=== PATIENT | female | born 1965 | race Caucasian/White ===

== ENCOUNTER → 2018-06-17 10:30 | Outpatient (CLI) | payer OTHER, SELFPAY ==
[2018-06-17 10:30] LABS: Erythrocyte Sedimentation Rate 3 mm/hr (0-30)
[2018-06-17 10:32] LABS: Absolute Lymphocyte Count 1.01 X10^3/ul (0.83-4.51); Absolute Neutrophil Count 2.6 X10^3/uL (2.0-7.7); Basophil# 0.05 X10^3/uL; Basophil% 1.2 % (0-1); Eosinophil# 0.27 X10^3/uL; Eosinophils% 6.5 % (0-5); Hematocrit 37.7 % (37-47); Hemoglobin 13.1 g/dl (12.0-15.0); International Normalized Ratio 1.1; Lymphocyte # 1.01 X10^3/ul (4.0); Lymphocyte % 24.2 % (19-41); Mean Corp Hgb Conc 34.7 g/gl (32-36); Mean Corpuscular Hgb 31.5 pg (27.0-32.0); Mean Corpuscular Volume 90.6 fL (81-99); Mean Platelet Vol. 11.6 fl (6.2-12.0); Monocyte# 0.24 X10^3/uL; Monocyte% 5.7 % (0-10); Neutrophil # 2.61 X10^3/uL (2.7-7.7); Neutrophil % 62.4 % (47-70); Platelet Count 200 K/mm3 (150-450); Prothrombin Time (Protime)PT. 13.8 SECONDS (11.7-14.9); RBC Distribution Width CV 12.9 % (11.6-14.6); RBC Distribution Width SD 42.3 fl (35.1-43.9); Red Blood Count 4.16 M/mm3 (4.2-5.4); White Blood Count 4.2 K/mm3 (4.4-11.0)
[2018-06-17 10:33] LABS: POSITIVE COUNT NO; POSITIVE DIFFERENTIAL NO; POSITIVE MORPHOLOGY NO
[2018-06-17 10:43] LABS: AST(SGOT) 22 U/L (15-37); Alanine Aminotransfer ALT/SGPT 34 U/L (13-56); Albumin, Serum 3.8 g/dL (3.2-5.0); Alkaline Phosphatase 62 U/L (45-117); Bilirubin, Direct 0.25 mg/dL (0.00-0.30); Globulin 3.6 g/dL (2.2-4.2); Protein, Total 7.4 g/dL (6.4-8.2)
== END ==
PROVIDERS: Family Provider Family Medicine; PCP Family Medicine; Referring Provider Family Medicine; Visit Provider Family Medicine
DX: T14.8XXA Other injury of unspecified body region, initial encounter (principal)
CPT/HCPCS: 36415; 80076; 85025; 85610; 85652

== ENCOUNTER → 2018-07-31 11:25 | Outpatient (CLI) | payer OTHER, SELFPAY ==
--- NOTE | 2018-07-31 11:27 | RAD_ITS ---
STUDY: X-RAY - PARANASAL SINUSES REASON FOR EXAM: Female, 53 years old. Sinusitis. TECHNIQUE: 3 view(s) of the paranasal sinuses were obtained. COMPARISON: None. FINDINGS: There is mild mucosal thickening of the maxillary sinus. The remainder of the sinuses appear to be clear. No air-fluid levels are seen. Normal visualized facial bones. The soft tissue structures are unremarkable. RAD/Sinuses min 3 Views IMPRESSION: Mild sinus disease of the left maxillary sinus. Electronically Signed: Thomas Gomes MD at 11:39 EST Tel , Service support ,
== END ==
PROVIDERS: Family Provider Family Medicine; PCP Family Medicine; Referring Provider Family Medicine; Visit Provider Family Medicine
DX: J32.9 Chronic sinusitis, unspecified (principal)
CPT/HCPCS: 70220

== ENCOUNTER → 2018-09-03 07:38 | Outpatient (CLI) | payer OTHER, SELFPAY ==
--- NOTE | 2018-09-03 07:46 | CT_ITS ---
STUDY: CT MAXILLOFACIAL SINUSES REASON FOR EXAM: Female, 53 years old. History of sinusitis. RADIATION DOSAGE (If Supplied By Facility): CTDIvol = ( 33.06 ) mGy, DLP = ( 817.32 ) mGycm TECHNIQUE: The patient was scanned in a multi detector CT scanner. High resolution axial imaging was performed without the administration of intravenous contrast material. Sagittal and coronal images were reconstructed. Individualized dose optimization techniques were used for this CT. COMPARISON: None. FINDINGS: FRONTAL SINUSES: Normal aeration, without mucosal inflammatory disease. ETHMOIDAL SINUSES: Normal aeration, without mucosal inflammatory disease. MAXILLARY SINUSES: There is almost complete opacification of the left maxillary sinus. Partial opacification of the left ethmoid sinus. SPHENOIDAL SINUSES: Normal aeration, without mucosal inflammatory disease. There is patency of the bilateral maxillary infundibuli with normal uncinate processes, ethmoid bullae, and hiatus semilunaris. Hypertrophy of the left middle nasal turbinate. There is hypertrophy of the left inferior nasal turbinate. Normal midline nasal septum. There is patency of the bilateral nasal airways. The visualized osseous structures are normal. The visualized bilateral orbital contents are normal. CT/Sinus/Facial Bone IMPRESSION: Almost complete opacification of the left maxillary sinus. Partial opacification of the left ethmoid sinus. Hypertrophy of the left inferior and middle turbinates. Electronically Signed: Tu Venegas MD at 8:56 EST Tel [phone], Service support ,
--- OUTSIDE RECORDS SUMMARY | 2018-10-20 00:52 | XMS RPT_ITS ---
:1965 Author Organization [facility] Care Team Providers Name Role Phone Jose Billings Attending Unavailable Jose Billings Referring Unavailable Senaitiff, Alejandra Primary Care Unavailable Jolliff, Alejandra Attending Unavailable Jolliff, Alejandra Referring Unavailable Jolliff, Alejandra Primary Care Unavailable Jolliff, Alejandra Attending Unavailable Jolliff, Alejandra Referring Unavailable Jolliff, Alejandra Primary Care Unavailable PROBLEMS PROBLEMS DATE TYPE CONDITION / CODE ATTENDING STATUS SOURCE 07/31/2018 Unknown J32.9 - Chronic Alejandra Swan Active Amanda sinusitis, Community unspecified / Hospital J32.9(ICD-10) Repository PROCEDURES PROCEDURES No Procedure Records FoundRESULTS RESULTS SINUS/FACIAL BONE Observed: 09/03/2018 Status: F Source: AMANDA 7:46 AM [facility] REPOSITORY [facility] Imaging Services [address] [place] [address] Sinus/Facial Bone MR#: [id number] Acct: [id number] Name: AMINA POTTS Rep #: [id number] : 1965 F 53 From: Tu Venegas MD PCP: Alejandra Swan MD Status: REG CLI Study: Sinus/Facial Bone Date of Exam: 09/03/18 Exam# [id number] Ordering Dr: Jose Billings MD STUDY: CT MAXILLOFACIAL SINUSES REASON FOR EXAM: Female, 53 years old. History of sinusitis. RADIATION DOSAGE (If Supplied By Facility): CTDIvol = ( 33.06 ) mGy, DLP = ( 817.32 ) mGycm TECHNIQUE: The patient was scanned in a multi detector CT scanner. High resolution axial imaging was performed without the administration of intravenous contrast material. Sagittal and coronal images were reconstructed. Individualized dose optimization techniques were used for this CT. COMPARISON: None. FINDINGS: FRONTAL SINUSES: Normal aeration, without mucosal inflammatory disease. ETHMOIDAL SINUSES: Normal aeration, without mucosal inflammatory disease. MAXILLARY SINUSES: There is almost complete opacification of the left maxillary sinus. Partial opacification of the left ethmoid sinus. SPHENOIDAL SINUSES: Normal aeration, without mucosal inflammatory disease. There is patency of the bilateral maxillary infundibuli with normal uncinate processes, ethmoid bullae, and hiatus semilunaris. Hypertrophy of the left middle nasal turbinate. There is hypertrophy of the left inferior nasal turbinate. Normal midline nasal septum. There is patency of the bilateral nasal airways. The visualized osseous structures are normal. The visualized bilateral orbital contents are normal. CT/Sinus/Facial Bone IMPRESSION: Almost complete opacification of the left maxillary sinus. Partial opacification of the left ethmoid sinus. Hypertrophy of the left inferior and middle turbinates. Electronically Signed: Tu Venegas MD at 8:56 EST Tel [phone], Service support , CC: Alejandra Swan MD; Jose Billings MD Sieve Repairer: Signed SINUSES MIN 3 VIEWS Observed: 07/31/2018 Status: F Source: [place] 11:27 AM [facility] [place] [facility] Imaging Services [address] [facility] [place] [address] Sinuses min 3 Views MR#: [id number] Acct: [id number] Name: AMINA POTTS Rep #: [id number] : 1965 F 53 From: Thomas Gomes MD PCP: Alejandra Swan MD Status: REG CLI Study: Sinuses min 3 Views Date of Exam: 07/31/18 Exam# [id number] Ordering Dr: Alejandra Swan MD STUDY: X-RAY - PARANASAL SINUSES REASON FOR EXAM: Female, 53 years old. Sinusitis. TECHNIQUE: 3 view(s) of the paranasal sinuses were obtained. COMPARISON: None. FINDINGS: There is mild mucosal thickening of the maxillary sinus. The remainder of the sinuses appear to be clear. No air-fluid levels are seen. Normal visualized facial bones. The soft tissue structures are unremarkable. RAD/Sinuses min 3 Views IMPRESSION: Mild sinus disease of the left maxillary sinus. Electronically Signed: Thomas Gomes MD at 11:39 EST Tel , Service support , CC: Alejandra Swan MD Sieve Repairer: Signed ERYTHROCYTE SED RATE Collected: 06/17/2018 Status: F Source: [place] 8:19 AM [facility] [place] TYPE CODE TESTS RESULT OUT OF RANGE REFERENCE UNITS LAB L102.0000 0-30 mm/hr Normal SED RATE 3 Performed By: #### L101.9900, L100.0100 #### [facility] [address] [place], [address] CBC W/DIFF, AUTOMATED Collected: 06/17/2018 Status: F Source: [place] 8:19 AM [facility] [place] [place] TYPE CODE TESTS RESULT OUT OF RANGE REFERENCE UNITS LAB L100.1000 4.4-11.0 K/mm3 Low WBC 4.2 LAB L100.1200 4.2-5.4 M/mm3 Low RBC 4.16 LAB L100.1300 12.0-15.0 g/dl Normal HGB 13.1 LAB L100.1400 37-47 % Normal HCT 37.7 LAB L100.1500 81-99 fL Normal MCV 90.6 LAB L100.1600 27.0-32.0 pg Normal MCH 31.5 LAB L100.1700 32-36 g/gl Normal MCHC 34.7 LAB L100.1810 11.6-14.6 % Normal RDW CV 12.9 LAB L100.1820 35.1-43.9 fl Normal RDW SD 42.3 LAB L100.1900 150-450 K/mm3 Normal PLT 200 LAB L100.2000 6.2-12.0 fl Normal MPV 11.6 LAB L100.2100 47-70 % Normal NEUT% 62.4 LAB L100.2200 19-41 % Normal LY% 24.2 LAB L100.2300 0-10 % Normal MONO% 5.7 LAB L100.2400 0-5 % High EO% 6.5 LAB L100.2500 0-1 % High BASO% 1.2 LAB L100.2550 0.0-0.9 % Normal IM GRAN % 0.000 Result Comment: IG% - Immature Granulocytes (promyelocytes, myelocytes and metamyelocytes) > 1% indicates that a LEFT SHIFT is Present. LAB L100.2620 2.0-7.7 X10 3/uL Normal Absolute Neut 2.6 LAB L100.2720 0.83-4.51 X10 3/ul Normal Absolute Lymph 1.01 Performed By: #### L101.9900, L100.0100 #### [facility] [address] [facility] [place], [address] PROTHROMBIN TIME W/INR Collected: 06/17/2018 Status: F Source: [place] 8:19 AM [facility] [place] TYPE CODE TESTS RESULT OUT OF RANGE REFERENCE UNITS LAB L300.4150 11.7-14.9 SECONDS Normal PROTIME 13.8 LAB L300.4200 Normal INR 1.1 Performed By: #### L300.3900 #### [facility] [address] [facility] [place], [address] LIVER PROFILE Collected: 06/17/2018 Status: F Source: [place]DA 8:19 AM [facility] [place] TYPE CODE TESTS RESULT OUT OF RANGE REFERENCE UNITS LAB L501.1500 6.4-8.2 g/dL Normal T PROT 7.4 LAB L501.1800 3.2-5.0 g/dL Normal ALB 3.8 LAB L501.1950 2.2-4.2 g/dL Normal GLOB 3.6 LAB L501.4100 15-37 U/L Normal AST 22 LAB L501.4305 45-117 U/L Normal ALK P 62 LAB L501.4405 13-56 U/L Normal ALT 34 LAB L501.4600 0.20-1.00 mg/dL High T BILI 1.20 LAB L501.4700 0.00-0.30 mg/dL Normal D BILI 0.25 Performed By: #### L500.3400 #### [facility] [address] [facility], [address] ALLERGIES ALLERGIES No Allergies Records FoundENCOUNTERS ENCOUNTERS ADMIT/DISCHARGE ACCOUNT ADMITTING ENCOUNTER LOCATION SOURCE NUMBER CLASS 09/03/2018 [id number] Ambulatory [facility] 8 [facility] ing:CT Repository 07/31/2018 [id number] Ambulatory [facility] 0 [facility] ing:MTRAD Repository 06/17/2018 [id number] [facility] 6 [facility] ing:MTLAB Repository PAYERS PAYERS ENCOUNTER GUARANTOR PAYER SUBSCRIBER SOURCE 09/03/2018 DELIA Primary DELIA Patel [id number] Insurance:MEDICAL TARUTANIDOB: [facility] [id number] Number: Repository [id number]: [phone]) [id number] [phone] () Date:[id number] [address] [place] [address]GA: 09/03/2018 Secondary AMINA Patel Insurance:[facility] PACKAGE TARUTANIDOB: [facility] Number: [id number] [id number] Repository Date:2018-08-20 09/03/2018 Tertiary NOT GIVENUNK Amanda Insurance:SELF PAY [facility] Number: Effective Repository Date:2018-08-20 07/31/2018 DELIA Patel [id number] Insurance:MEDICAL TARUTANIDOB: [facility] [id number] Number: Repository [id number]: 330 [id number] [phone] () Date:[id number] [address] [address]EG: 07/31/2018 Secondary NOT GIVENUNK Amanda Insurance:SELF PAY [facility] Number: Effective Repository Date:2018-07-31 06/17/2018 DELIA Rodney Patel [id number] Insurance:MEDICAL TARUTANIDOB: [facility] [id number] Number: Repository [id number]: 330 [id number] [phone] () Date:[id number] [address] [address]NH: 06/17/2018 Secondary NOT GIVENUNK Curtice Insurance:SELF PAY [facility] Number: Effective Repository Date:2018-06-17
== END ==
PROVIDERS: Family Provider Family Medicine; PCP Family Medicine; Referring Provider Otolaryngology Otolaryngology/Facial Plastic Surgery; Visit Provider Otolaryngology Otolaryngology/Facial Plastic Surgery
DX: J32.9 Chronic sinusitis, unspecified (principal)
CPT/HCPCS: 70486

== ENCOUNTER → 2019-07-21 15:34 | Outpatient (CLI) | payer OTHER, SELFPAY ==
[2019-07-21 18:09] LABS: Thyroid Stim Hormone (TSH) 0.54 uIU/mL (0.358-3.74)
== END ==
PROVIDERS: Family Provider Family Medicine; PCP Family Medicine; Visit Provider Family Medicine
DX: R00.2 Palpitations (principal)
CPT/HCPCS: 36415; 84443

== ENCOUNTER → 2019-07-22 10:39 | Outpatient (CLI) | payer OTHER, SELFPAY ==
--- NOTE | 2019-07-22 10:43 | BI_ITS ---
MAMMOGRAPHY - BILATERAL SCREENING REASON FOR EXAM: Female, 54 years old. Routine annual screening examination. PERTINENT HISTORY: Non-contributory. TECHNIQUE: Digital bilateral breast roalnd (3D mammographic acquisition) in the CC and MLO projections. 2-D mediolateral oblique (MLO) and craniocaudad (CC) views of both breasts were obtained. CAD: Full Field Digital Mammography with Computer Added Detection was performed. COMPARISON: Comparison is made with prior study dated March 11, 2016 and January 10, 2014. FINDINGS: Breast Composition: The breasts are heterogeneously dense, which may obscure small masses. There are no dominant masses or suspicious calcifications. No other significant abnormalities are identified. There has been no significant change since the prior study. BI/SCREEN MAMM (CAD) W/ROLAND BILAT IMPRESSION: Stable bilateral screening mammogram. Yearly follow-up mammogram recommended. (A) ASSESSMENT CATEGORY: BIRADS Category 1: Negative. A letter regarding these results will be sent to the patient by the facility within 30 days. Approximately 10% of breast cancers are not detected by mammography. A normal mammogram should not delay biopsy of a clinically suspicious abnormality. [id number] Electronically Signed: Tu Venegas, at 12:38 EDT , Service support ,
== END ==
PROVIDERS: Family Provider Family Medicine; PCP Family Medicine; Referring Provider Obstetrics & Gynecology; Visit Provider Obstetrics & Gynecology
DX: Z12.31 Encounter for screening mammogram for malignant neoplasm of breast (principal)
CPT/HCPCS: 77063; 77067

== ENCOUNTER → 2019-10-06 10:03 | Outpatient (CLI) | payer OTHER, SELFPAY ==
--- NOTE | 2019-10-06 10:07 | RAD_ITS ---
STUDY: X-RAY - PELVIS AND RIGHT HIP REASON FOR EXAM: Female, 54 years old. Right hip and groin pain. TECHNIQUE: 3 views of the pelvis and hip. COMPARISON: None. FINDINGS: There is a non-specific bowel gas pattern. Normal visualized soft tissue structures. Normal bilateral iliac wings, sacroiliac joints and visualized sacrum. Normal bilateral superior and inferior pubic rami. Normal pubic symphysis. Normal bilateral ischial tuberosities. Normal visualized femoral head. Normal acetabulum. Normal hip joint. RAD/HIP, UNI W/ Pelvis 2-3 Views IMPRESSION: Normal x-ray examination of the pelvis and hip. Electronically Signed: Gato Lackey MD at 17:25 EST , Service support ,
== END ==
PROVIDERS: Family Provider Family Medicine; PCP Family Medicine; Referring Provider Family Medicine; Visit Provider Family Medicine
DX: S76.211A Strain of adductor muscle, fascia and tendon of right thigh, initial encounter (principal)
CPT/HCPCS: 73502

== ENCOUNTER 2019-12-01 16:30 | Outpatient (RCR) | payer OTHER, SELFPAY ==
--- NOTE | 2019-10-19 14:14 | HP.PTEVAL_ITS ---
Patient's Visit Information AMINA POTTS is a 54 year old F referred to Physical Therapy by Dr. Alejandra Swan MD with a diagnosis of R groin strain.. Date of Evaluation: 10/19/19 Physical Therapist: SAE Cruz - Visit Plan Frequency: 2x /Week Duration: 6 Weeks Plan: 2X/ week for 6 weeks for foam rolling psoas and Quad stretching, abdominal and glut strengthening, core stability, hip strength with HEP!!! Modlaities if needed - Subjective Findings: Over a year ago she was lifting something heavy into the trunk and she felt pain in her back. Several years ago she had 2 herniated discs.... She saw a chiropractor and yoga and it just got better. When she walks she has pain in her groin and would hurt for quit awhile. SHe started swimming and sometimes it hurts. SHe reports that the groin pain. 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 She has tried to stretch into her groin and it is like she can not bend and makes it worse. Every step she takes it hurts and then it hurts after. Walks [place]6 [place] at the beach and it hurt for days. she does yoga and it helps. She had a little numb in B legs with swimming but then it went away. She feels better on a hard chair.... soft chair is worse. Does not bother her with driving. - Pain back pain Pain Intensity (Out of 10): 0 R groin pain Pain Intensity (Out of 10): 3 - Objective Gait: Walks with normal gait pattern. First few steps from sitting are painful with gait and if she increases her stride length she has increase pain. Trunk AROM; flexion 100%, ext 75%, SB B 100%, ROtation 100% B. LE MMT: R hip flex 4/5 and L 4+/5, B hip abd 4+/5, R hip ext 4-/5 and L hip ext 4/5 ( pt like to rotate spine instead of true hip ext movement), B knee flex and knee ext 4/5. Pt is able to walk on heels and toes without an issue. Good B HS length. B bilat Gato test with increase pain on the R. Tender along the R PSIS and soft tissue surrounding it. - Goals Goal 1:: I HEP Goal Time Frame: 4-6 Weeks Goal 2:: Increase L muscle length as demonstrated by the Gato Test Goal Time Frame: 4-6 Weeks Goal 3:: Be able to stand up and not have pain in the R hip with first few steps Goal Time Frame: 4-6 Weeks Goal 4:: Be able to resume a walking program with increase stride length without pain Goal Time Frame: 4-6 Weeks Goal 5:: Increase core and glut strength Goal Time Frame: 4-6 Weeks - Rehabilitation Potential Rehabilitation Potential: Good - Anticipated Interventions Patient/Client Instruction: Educate patient on: Condition, Plan of Care For the Purpose of:: To decrease pain, To increase ROM, To improve nutrient delivery to tissue, To improve muscle performance and motor function, To improve ability to perform ADL's, To increase tolerance to activity/condition/position, To improve performance and independence with ADL's, To improve ability of physical actions for home/community/work/leisure, To improve gait and locomotor functions, To decrease soft tissue restriction, To improve endurance Therapeutic Exercise to Include: Strength training, Body mechanics, Postural t raining, Flexibilty training, Gait and locomotor training, Passive ROM, Active ROM, Dynamic Lumbar Stabilization For the Purpose of:: To decrease pain, To improve nutrient delivery to tissue, To increase oxygenation perfusion, To improve muscle performance and motor function, To increase tolerance to activity/condition/position, To improve performance and independence with ADL's, To improve ability of physical actions for home/community/work/leisure, To improve gait and locomotor functions, To improve health of tissue, To decrease soft tissue restriction, To increase f lexibility/ROM Manual Therapy Techniques to Include: Mobilization, Passive ROM, Soft tissue mobilization For the Purpose of:: To decrease pain, To increase ROM, To improve nutrient delivery to tissue, To improve muscle performance and motor function, To improve ability to perform ADL's, To improve performance and independence with ADL's, To improve gait and locomotor functions, To improve health of tissue, To decrease soft tissue restriction, To increase flexibility/ROM IF ES: Yes Cryotherapy (ice pack, ice massage): Yes Thermo therapy (hot pack): Yes Ultrasound (thermal/non thermal): Yes For the Purpose of:: To decrease pain, To decrease swelling/inflammation, To improve nutrient delivery to tissue Thank you for the opportunity to evaluate your patient. For Medicare and Medicare HMO plans, please review the plan of care and approve it. It will need to be FAXED BACK to us at [phone] for Medicare purposes. For Medicare only, by signing this I certify the plan of care. Please let me know if there are questions or concerns regarding this plan of care. Physician Signature: Date:
--- NOTE | 2020-02-24 13:01 | HP.PT.NRP ---
AMINA POTTS was seen in my office for initial evaluation on 10/19/19. The following Plan of Care was established for this patient: Initial Frequency: 2x /Week Initial Duration: 6 Weeks Patient/Client Instruction: Educate patient on: Condition, Plan of Care For the Purpose of:: To decrease pain, To increase ROM, To improve nutrient delivery to tissue, To improve muscle performance and motor function, To improve ability to perform ADL's, To increase tolerance to activity/condition/position, To improve performance and independence with ADL's, To improve ability of physical actions for home/community/work/leisure, To improve gait and locomotor functions, To decrease soft tissue restriction, To improve endurance Therapeutic Exercise to Include: Strength training, Body mechanics, Postural training, Flexibilty training, Gait and locomotor training, Passive ROM, Active ROM, Dynamic Lumbar Stabilization For the Purpose of:: To decrease pain, To improve nutrient delivery to tissue, To increase oxygenation perfusion, To improve muscle performance and motor function, To increase tolerance to activity/condition/position, To improve performance and independence with ADL's, To improve ability of physical actions for home/community/work/leisure, To improve gait and locomotor functions, To improve health of tissue, To decrease soft tissue restriction, To increase flexibility/ROM Manual Therapy Techniques to Include: Mobilization, Passive ROM, Soft tissue mobilization For the Purpose of:: To decrease pain, To increase ROM, To improve nutrient delivery to tissue, To improve muscle performance and motor function, To improve ability to perform ADL's, To improve performance and independence with ADL's, To improve gait and locomotor functions, To improve health of tissue, To decrease soft tissue restriction, To increase flexibility/ROM IF ES: Yes Cryotherapy (ice pack, ice massage): Yes Thermo therapy (hot pack): Yes Ultrasound (thermal/non thermal): Yes For the Purpose of:: To decrease pain, To decrease swelling/inflammation, To improve nutrient delivery to tissue This patient was last seen in our office 12/01/19. Pertinent comments regarding their Physical therapy will appear below: DENIZ PT at this time. At this point I will be discontinuing this patient from physical therapy. I would be happy to see this patient again in the future if found appropriate by the physician. Thank you! Mara Ortega, MPT
== END 2019-12-01 19:00 | disposition home or self-care (01) ==
LOC: PT 16:30
PROVIDERS: PCP Family Medicine; Referring Provider Family Medicine; Visit Provider Family Medicine
DX: S39.011D Strain of muscle, fascia and tendon of abdomen, subsequent encounter (principal)
CPT/HCPCS: 97110; 97140; 97161

== ENCOUNTER → 2020-11-03 14:38 | Outpatient (CLI) | payer BC, SELFPAY ==
--- NOTE | 2020-11-03 14:42 | RAD_ITS ---
STUDY: X-RAY - LEFT WRIST REASON FOR EXAM: Female, 55 years old. left wrist pain, feels sore and swollen by the end of the day -- several weeks TECHNIQUE: 3 view(s) of the wrist were obtained. COMPARISON: None. FINDINGS: Normal visualized distal radius and ulna. Normal radiocarpal articulation. Normal distal radioulnar articulation. Normal carpal bones. Normal carpal articulations. Normal carpometacarpal articulation of the thumb. Normal second through fifth carpometacarpal articulations. Normal visualized metacarpal bones. The soft tissue structures are unremarkable. RAD/Wrist min 3 Views IMPRESSION: Normal x-ray examination of the wrist. Electronically Signed: Waldemar Tang MD at 15:56 EST Tel , Service support ,
== END ==
PROVIDERS: PCP Family Medicine; Referring Provider Family Medicine; Visit Provider Family Medicine
DX: M25.532 Pain in left wrist (principal)
CPT/HCPCS: 73110

== ENCOUNTER → 2021-01-01 | Outpatient (CLI) | payer BC, SELFPAY ==
[2021-01-04 16:20] LABS: HPV APTIMA, High Risk Negative (Negative)
== END | disposition home or self-care (01) ==
LOC: LABSPEC 11:14
PROVIDERS: PCP Family Medicine; Visit Provider Student in an Organized Health Care Education/Training Program
DX: Z12.4 Encounter for screening for malignant neoplasm of cervix (principal)
CPT/HCPCS: 87624; 88175; G0145

== ENCOUNTER → 2021-01-08 13:56 | Outpatient (CLI) | payer BC, SELFPAY ==
--- NOTE | 2021-01-08 13:58 | BI_ITS ---
MAMMOGRAPHY - BILATERAL SCREENING REASON FOR EXAM: Female, 55 years old. Routine annual screening examination. PERTINENT HISTORY: Non-contributory. TECHNIQUE: Digital bilateral breast roland (3D mammographic acquisition) in the CC and MLO projections. 2-D mediolateral oblique (MLO) and craniocaudad (CC) views of both breasts were obtained. CAD: Full Field Digital Mammography with Computer Added Detection was performed. COMPARISON: Comparison is made with prior study 07/22/2019 and 03/19/2016. FINDINGS: Breast Composition: The breasts are heterogeneously dense, which may obscure small masses. There are no dominant masses or suspicious calcifications. No other significant abnormalities are identified. There has been no significant change since the prior study. BI/SCRN MAMM (CAD)W/ROLAND BILAT IMPRESSION: Stable bilateral screening mammogram. Yearly follow-up mammogram recommended. (A) ASSESSMENT CATEGORY: BIRADS Category 1: Negative. A letter regarding these results will be sent to the patient by the facility within 30 days. Approximately 10% of breast cancers are not detected by mammography. A normal mammogram should not delay biopsy of a clinically suspicious abnormality. [id number] Electronically Signed: Tu Venegas MD at 14:42 EDT , Service support ,
== END ==
PROVIDERS: PCP Family Medicine; Referring Provider Student in an Organized Health Care Education/Training Program; Visit Provider Student in an Organized Health Care Education/Training Program
DX: Z12.31 Encounter for screening mammogram for malignant neoplasm of breast (principal)
CPT/HCPCS: 77063; 77067

== ENCOUNTER → 2021-05-25 | Outpatient (CLI) | payer BC, SELFPAY | END | disposition home or self-care (01) | PROVIDERS: PCP Family Medicine; Referring Provider Family Medicine; Visit Provider Family Medicine | DX: J06.9 Acute upper respiratory infection, unspecified (principal) | CPT/HCPCS: 87635; U0005; U0003 ==

== ENCOUNTER → 2022-05-23 | Outpatient (CLI) | payer BC, SELFPAY ==
--- NOTE | 2022-05-23 15:04 | BI_ITS ---
MAMMOGRAPHY - BILATERAL SCREENING REASON FOR EXAM: Female, 57 years old. Routine annual screening examination. PERTINENT HISTORY: Non-contributory. TECHNIQUE: Digital bilateral breast roland (3D mammographic acquisition) in the CC and MLO projections. 2-D mediolateral oblique (MLO) and craniocaudad (CC) views of both breasts were obtained. CAD: Full Field Digital Mammography with Computer Added Detection was performed. COMPARISON: Comparison is made with prior study 01/08/2021 and 07/22/2019. FINDINGS: Breast Composition: The breasts are heterogeneously dense, which may obscure small masses. There are no dominant masses or suspicious calcifications. No other significant abnormalities are identified. There has been no significant change since the prior study. BI/SCRN MAMM (CAD)W/ROLAND BILAT IMPRESSION: Stable bilateral screening mammogram. Yearly follow-up mammogram recommended. (A) ASSESSMENT CATEGORY: BIRADS Category 1: Negative. A letter regarding these results will be sent to the patient by the facility within 30 days. Approximately 10% of breast cancers are not detected by mammography. A normal mammogram should not delay biopsy of a clinically suspicious abnormality. [id number] Electronically Signed: Tu Venegas MD at 15:52 EDT ,
== END | disposition home or self-care (01) ==
LOC: OPBI 15:03
PROVIDERS: PCP Internal Medicine; Visit Provider Student in an Organized Health Care Education/Training Program
DX: Z12.31 Encounter for screening mammogram for malignant neoplasm of breast (principal)
CPT/HCPCS: 77063; 77067

== ENCOUNTER → 2022-07-05 | Outpatient (CLI) | payer BC, SELFPAY ==
--- NOTE | 2022-07-05 17:38 | RAD_ITS ---
INDICATION: strain EXAMINATION/TECHNIQUE: X-RAY - XR Spine Cervical 2 or 3 Views COMPARISON: None. FINDINGS: VERTEBRAE: Vertebral body height is maintained however there is grade 1 anterolisthesis of C4 on C5. No fractures or destructive bony process. Odontoid process is intact. Prevertebral soft tissue planes have normal appearance. Multilevel facet hypertrophic changes most notable from C3 to C6. DISCS: Disc spaces are maintained although there is grade 1 anterolisthesis of C4 on C5. NECK SOFT TISSUES: No prevertebral soft tissue widening. LUNG APICES: Clear. RAD/Cerv Spine 2 or 3 Views IMPRESSION: 1. Cervical spondylosis and facet arthrosis with grade 1 anterolisthesis of C4 and C5. 2. No fractures or acute destructive bony process.. Electronically Signed: Waldemar Dobbins MD at 22:00 EDT ,
== END | disposition home or self-care (01) ==
LOC: RAD 17:31
PROVIDERS: PCP Internal Medicine; Visit Provider Chiropractor
DX: S13.4XXA Sprain of ligaments of cervical spine, initial encounter (principal)
CPT/HCPCS: 72040

== ENCOUNTER → 2023-04-25 | Outpatient (CLI) | payer BC, SELFPAY ==
[2023-04-25 11:27] LABS: Absolute Lymphocyte Count 1.69 X10^3/uL (0.83-4.51); Absolute Neutrophil Count 2.6 X10^3/uL (2.0-7.7); Basophil# 0.07 X10^3/uL; Basophil% 1.4 % (0-1); Eosinophil# 0.28 X10^3/uL; Eosinophils% 5.7 % (0-5); Hematocrit 40.9 % (37-47); Hemoglobin 14.1 g/dL (12.0-15.0); Lymphocyte # 1.69 X10^3/ul (0.83-4.51); Lymphocyte % 34.3 % (19-41); Mean Corp Hgb Conc 34.5 g/dL (32-36); Mean Corpuscular Hgb 30.6 pg (27.0-32.0); Mean Corpuscular Volume 88.7 fL (81-99); Mean Platelet Vol. 10.6 fl (6.2-12.0); Monocyte% 6.1 % (0-10); NRBC Flagged by Analyzer 0 % (0-5); Neutrophil # 2.57 X10^3/uL (2.7-7.7); Neutrophil % 52.3 % (47-70); Platelet Count 227 K/mm3 (150-450); RBC Distribution Width CV 13.2 % (11.6-14.6); Red Blood Count 4.61 M/mm3 (4.2-5.4); White Blood Count 4.9 K/mm3 (4.4-11.0)
[2023-04-25 12:06] LABS: Vitamin D,25 Hydroxy 64.2 ng/mL
[2023-04-25 12:11] LABS: AST(SGOT) 22 U/L (15-37); Alanine Aminotransfer ALT/SGPT 33 U/L (13-56); Albumin, Serum 3.9 g/dL (3.2-5.0); Alkaline Phosphatase 87 U/L (45-117); Anion Gap 4 (5-15); BUN 9 mg/dL (7-18); BUN/Creat Ratio 9.9 RATIO (10-20); Calcium,Total 9.3 mg/dL (8.5-10.1); Chloride 104 mmol/L (98-107); Cholesterol 189 mg/dL (200); EST Glomerular Filtration Rate 68 mL/min (>60); Est Glom Filt Rate - Afr Amer 83 mL/min (>60); Globulin 3.9 g/dL (2.2-4.2); Glucose 97 mg/dL (74-106); High Density Lipoprotein 64 mg/dL; Protein, Total 7.8 g/dL (6.4-8.2); Sodium Level 136 mmol/L (136-145); Triglycerides 79 mg/dL; Very Low Density Lipoprotein 16 mg/dL (5-40)
[2023-04-25 13:37] LABS: Bilirubin, Direct 0.35 mg/dL (0.00-0.30)
[2023-04-25 15:12] LABS: Bacteria 0 SEEN /hpf (None Seen); Mucous, Urine 0 SEEN /hpf (<or=2+); Red Blood Cells-Urine 0 SEEN /hpf (0-5); Squamous Epithelial Cells - UA 0 SEEN /hpf (5-10); White Blood Cells 0 SEEN /hpf (0-5)
[2023-04-25 15:43] LABS: Color, Urine Yellow (Yellow); Glucose, Dipstick Normal (Normal); Ketone-Dipstick Negative (Negative); Leukocyte Esterase-Dipstick Negative /ul (Negative); Nitrite-Dipstick Negative (Negative); Occult Blood-Urine Negative /ul (Negative); Protein-Dipstick Negative (Negative); Urine Bilirubin Dipstick Negative (Negative); Urine Clarity Clear (Clear); Urine Urobilinogen Normal (Normal)
[2023-04-28 13:45] LABS: LDH 183 U/L (84-246)
[2023-04-30 05:07] LABS: Haptoglobin 96 mg/dL (33-346)
[2023-05-01 13:08] LABS: HPV APTIMA, High Risk Negative (Negative)
== END | disposition home or self-care (01) ==
PROVIDERS: Obstetrics & Gynecology; PCP Internal Medicine; Referring Provider Internal Medicine; Visit Provider Internal Medicine
DX: N93.9 Abnormal uterine and vaginal bleeding, unspecified (principal); R17 Unspecified jaundice; I10 Essential (primary) hypertension; E55.9 Vitamin D deficiency, unspecified; Z13.220 Encounter for screening for lipoid disorders
CPT/HCPCS: 36415; 80053; 80061; 81001; 82247; 82248; 82306; 83010; 83615; 85025; 87086; 87624; 88175; G0145

== ENCOUNTER → 2023-05-13 | Outpatient (CLI) | payer BC, SELFPAY ==
--- NOTE | 2023-05-13 09:21 | US_ITS ---
PROCEDURE: ABDOMINAL ULTRASOUND, RIGHT UPPER QUADRANT COMPARISONS: None. CLINICAL INDICATION: Elevated bilirubin TECHNIQUE: Real-time dumont-scale abdominal ultrasound. Limited color Doppler evaluation is performed. FINDINGS: Liver: Normal in size and echogenicity. Appropriate hepatopetal flow is present in the main portal vein. Gallbladder: Surgically absent. Biliary Tree: Nondilated. Common bile duct measures 2 mm. Pancreas: Limited evaluation of the head and body is unremarkable. Right kidney: Normal in size and echogenicity. No hydronephrosis or stones. The right kidney measures 10.3 cm in long axis. No free fluid. US/Abdomen Limited IMPRESSION: Status post cholecystectomy, otherwise unremarkable study. Electronically Signed: Robb Reed MD at 16:54 EDT ,
== END | disposition home or self-care (01) ==
PROVIDERS: PCP Internal Medicine; Referring Provider Internal Medicine; Visit Provider Internal Medicine
DX: R17 Unspecified jaundice (principal); M54.9 Dorsalgia, unspecified
CPT/HCPCS: 76705

== ENCOUNTER → 2023-09-30 | Outpatient (CLI) | payer BC, SELFPAY ==
--- NOTE | 2023-09-30 10:12 | RAD_ITS ---
STUDY: X-RAY - LUMBAR SPINE REASON FOR EXAM: Female, 58 years old. Back pain. TECHNIQUE: 5 view(s) of the lumbar spine were obtained. COMPARISON: None FINDINGS: Normal lumbar lordosis. Mild levoscoliosis. 2 mm of anterolisthesis of L5 on S1. Diffuse lower thoracic and lumbosacral facet sclerosis. Intervertebral disc space narrowing at L3-4, L4-5 and L5-S1 with small osteophytes at L5-S1. Normal soft tissues. RAD/L/S Spine Min 4 Views IMPRESSION: Mild lower lumbosacral spondylosis as described. No acute abnormality or erosive changes. Electronically Signed: Gato Lackey MD at 10:34 EST ,
== END | disposition home or self-care (01) ==
LOC: RAD 10:09
PROVIDERS: PCP Internal Medicine; Referring Provider Chiropractor; Visit Provider Chiropractor
DX: S33.5XXA Sprain of ligaments of lumbar spine, initial encounter (principal)
CPT/HCPCS: 72110

== ENCOUNTER → 2023-12-30 | Outpatient (CLI) | payer BC, SELFPAY ==
--- NOTE | 2023-12-30 14:30 | RAD_ITS ---
STUDY: X-RAY - LEFT FOOT CLINICAL: Female, 58 years old. L FOOT SPRAIN TECHNIQUE: 3 view(s) of the foot. COMPARISON: None. FINDINGS: Normal talus, calcaneus, and tarsal bones. Normal visualized subtalar, talonavicular, calcaneocuboid, tarsal and tarsometatarsal articulations. Normal metatarsi. Normal metatarsophalangeal joint of the great toe. Normal tibial and fibular sesamoid bones. Normal interphalangeal joint of the great toe. Normal phalanges of the great toe. Normal second through fifth metatarsophalangeal joints. Normal interphalangeal joints and phalanges of the lesser toes. The soft tissue structures are unremarkable. RAD/Foot min 3 Views IMPRESSION: Normal x-ray examination of the foot. Electronically Signed: Waldemar Tang MD at 22:18 EDT ,
== END | disposition home or self-care (01) ==
LOC: RAD 14:27
PROVIDERS: PCP Internal Medicine; Referring Provider Chiropractor; Visit Provider Chiropractor
DX: S93.602A Unspecified sprain of left foot, initial encounter (principal)
CPT/HCPCS: 73630

== ENCOUNTER → 2024-10-20 | Outpatient (CLI) | payer OTHER, SELFPAY ==
--- NOTE | 2024-10-20 07:15 | US_ITS ---
PROCEDURE: ABDOMEN LIMITED REASON FOR EXAM: Abdominal pain. COMPARISON: Ultrasound 05/13/2023. FINDINGS: Liver: Normal size and echotexture. The liver is measured at 15.5 cm in length. No evidence of intr ahepatic biliary ductal dilation. Hepatopetal flow is noted. Gallbladder: Surgically absent. Common bile duct: Normal measuring 3 mm. Pancreas: Visualized portions are sonographically unremarkable. The right kidney is measured at 10.4 x 4.6 x 3.1 mm. Parenchymal thicknesses and echotextures are pr eserved. The cortex is measured at 10 mm in thickness. No hydronephrosis. Peritoneal Findings: No ascites identified in visualized areas. US/Abdomen Limited IMPRESSION: 1. Prior cholecystectomy. 2. No acute process is seen. Reading Location: [id number]
== END | disposition home or self-care (01) ==
PROVIDERS: PCP Internal Medicine
DX: R10.31 Right lower quadrant pain (principal)
CPT/HCPCS: 76705

== ENCOUNTER → 2025-08-17 | Outpatient (CLI) | payer OTHER, SELFPAY ==
--- NOTE | 2025-08-17 06:21 | CT_ITS ---
PROCEDURE: ABDOMEN/PELVIS WITHOUT CONT 08/17/2025 REASON FOR EXAM: RIGHT LOWER GROIN PAIN, ?HERNIA, GROIN MUSCLE TEAR TECHNIQUE: Procedure Code: [id number] Modality: CT Procedure: ABDOMEN/PELVIS WITHOUT CONT Noncontrast technique limits evaluation of the abdominal and pelvic viscera. Coronal and Sagittal reconstruction series were provided. One or more dose reduction techniques were used (e.g., Automated exposure control, adjustment of the mA and/or kV according to patient size, use of iterative reconstruction technique). RADIATION DOSE SUMMARY: DLP: 314.37 mGycm COMPARISON: None available. FINDINGS: Lung bases: The lung bases are clear. Liver: Normal in size. Normal morphology. Gallbladder: Cholecystectomy. No biliary ductal dilatation. Spleen: Unremarkable. Pancreas: Unremarkable. Adrenals: Unremarkable. Kidneys: Normal in size. Normal morphology. No hydronephrosis or urolithiasis. Urinary bladder: Nondistended, limiting evaluation. Bowel: The small and large bowel are normal in caliber. No evidence of small bowel obstruction. Appendix: Not visualized. Lymph nodes: No lymphadenopathy. A few nonspecific bilateral subcentimeter inguinal lymph nodes. Vasculature: No abdominal aortic aneurysm. Peritoneum / Retroperitoneum: No ascites. Small fat containing umbilical hernia. Reproductive Organs: Limited evaluation on noncontrast CT. Uterus is present. No adnexal mass. Bones: No aggressive osseous lesion. Degenerative changes of the lumbar spine. CT/Abdomen/Pelvis without Cont IMPRESSION: No acute pathology in the abdomen or pelvis. Reading Location: [id number]
--- OUTSIDE RECORDS SUMMARY | 2025-08-17 06:23 | XMS RPT_ITS | CCD ---
Author Organization [facility] Care Team Providers Care Animal Treatment Investigator Name Role Phone Dr. Avril Ziegler Primary Care Provider Dr. Avril Ziegler Attending Provider Unavailable Primary Care Provider Brandan Ziegler MD, Dr. Mackenzie Primary Care Provider Tomeka BUCKLEY, Dr. Mackenzie Attending Provider CESAR MAO Attending Unavailable PODLOGAR, SUPRIYA Referring Unavailable PLOTTS, ROSITA Referring Unavailable PLOTTS, ROSITA Referring Unavailable PLOTTSROSITA Attending Unavailable CESAR MAO Attending Unavailable AMANDA, YAZMIN Referring Unavailable PODLOGAR, SUPRIYA Referring Unavailable PODLOGAR, SUPRIYA Referring Unavailable Tomeka BUCKLEY, Dr. Mackenzie Primary Care Physician [phone] Dr. Avril Ziegler MD Attending Physician [phone] NEETA RAMSEY Attending Unavailable NEETA RAMSEY Referring Unavailable Avril Ziegler Primary Care Unavailable Avril Ziegler Referring Unavailable Avril Ziegler Primary Care Unavailable Avril Ziegler Attending Unavailable Avril Ziegler Primary Care Unavailable Avril Ziegler Attending Unavailable Avril Ziegler Attending Unavailable Avril Ziegler Primary Care Unavailable Avril Ziegler Attending Unavailable Avril Ziegler Primary Care Unavailable Allergies Allergy Classification Reported Allergen(s) Allergy Type Date of Onset Reaction(s) Facility (7 sources) natural latex rubber; Translations: [LATEX, NATURAL RUBBER] Allergy to substance 2 unknown [facility] (6 sources) Wheat gluten extract Drug Allergy 2 headaches [facility] (11 sources) Codeine; Translations: [CODEINE] Drug Allergy 4 Vomiting [facility] (10 sources) Latex Drug Allergy 2 Rash, Swelling [facility] (1 source) Gluten Drug allergy (disorder) 5 [facility] (1 source) natural latex rubber Drug allergy (disorder) 5 [facility] (1 source) Iodinated Contrast Media Drug allergy (disorder) 5 [facility] Repository Medications Current Medications Medication Drug Class(es) Dates Sig (Normalized) Sig (Original) Ascorbic Acid (10 sources) Vitamin C ascorbic acid (VITAMIN C ORAL) Take by mouth. Active B-Complex With Vitamin C (4 sources) Start: 01-14-2022 take 1 capsule by mouth once daily B-Complex With Vitamin C Active 1 CAP PO DAILY January 14, 2022 12:00am B-Complex With Vitamin C capsule (2 sources) Start: 01-14-2022 B-Complex With Vitamin C capsule Active 1 NMA PO DAILY January 14, 2022 12:00am Complies with drug therapy Start: 01-14-2022 B-Complex With Vitamin C capsule Active 1 NMA PO DAILY January 14, 2022 12:00am cholecalciferol 0.025 mg oral capsule (6 sources) Vitamin D Start: 01-14-2022 take 1 capsule by mouth once daily Cholecalciferol (Vitamin D3) 25 mcg (1,000 unit) capsule Active 25 ug PO DAILY January 14, 2022 12:00am Complies with drug therapy cholecalciferol, vitamin D3, (VITAMIN D3 ORAL) (10 sources) cholecalciferol, vitamin D3, (VITAMIN D3 ORAL) Take by mouth. Active iodizime (6 sources) Start: 01-14-2022 iodizime Activ e PO 0 January 14, 2022 12:00am Complies with drug therapy Start: 01-14-2022 iodizime Activ e PO 0 January 14, 2022 12:00am Start: 01-14-2022 iodizime Activ e PO January 14, 2022 12:00am [place]-3 Fatty Acids 1,000 mg capsule (2 sources) Start: 02-26-2024 take 1 capsule by mouth once daily [place]-3 Fatty Acids 1,000 mg capsule Active 1000 mg PO DAILY February 26, 2024 12:00am Complies with drug therapy Start: 02-26-2024 take 1 capsule by mouth once d aily [place]-3 Fatty Acids 1,000 mg capsule Active 1000 mg PO DAILY February 26, 2024 12:00am quercet (6 sources) Start: 01-14-2022 quercet Active PO 0 January 14, 2022 12:00am Complies with drug therapy Start: 01-14-2022 quercet Active PO 0 January 14, 2022 12:00am Start: 01-14-2022 quercet Active PO January 14, 2022 12:00am vitamin B complex-folic acid 2,000 mcg cap (10 sources) vitamin B comple x-folic acid 2,000 mcg cap Take by mouth. Active Zinc (16 sources) Start: 01-14-2022 take 1 tablet by mouth once daily Zinc 50 mg tablet Active 50 mg PO DAILY January 14, 2022 12:00am Complies with drug therapy Start: 01-14-2022 take 1 tablet by mouth once da sandhya Zinc 50 mg tablet Active 50 mg PO DAILY January 14, 2022 12:00am Start: 01-14-2022 take 50 mg by mouth once daily Zinc Active 50 MG PO DAILY January 14, 2022 12:00am ZINC ORAL Take b y mouth. Active Completed/Discontinued Medications Medication Drug Class(es) Dates Sig (Normalized) Sig (Original) acetaminophen 325 mg / oxyCODONE hydrochloride 5 mg oral tablet (1 source) Opioid Agonist Start: 12-05-2015 End: 05-13-2024 take 1-2 tablets by mouth every four hours as needed oxyCODONE-acetami nophen (PERCOCET) 5-325 mg tablet Take 1-2 tablets by mouth every 4 hours as needed for Pain. 30 tablet 0 12/05/2015 05/13/2024 Discontinued (Discontinued by Patient) Alpha Lipoic Acid 50 mg capsule (2 sources) Start: 01-14-2022 End: 04-16-2023 take 1 capsule by mouth once daily Alpha Lipoic Acid 50 mg capsule Discontinued 50 mg PO DAILY January 14, 2022 12:00am April 16, 2023 1:01pm fluticasone propionate 0.05 mg/actuat metered dose nasal spray (1 source) Corticosteroid Start: 07-12-2023 End: 05-13-2024 take 2 spray(s) by mouth once daily fluticasone (FLONASE) 50 mcg/actuation nasal spray Indications: URI, acute , ETD (Eustachian tube dysfunction), right Use 2 Sprays in each nostril once daily. Rinse mouth after use. 1 Each 07/12/2023 05/13/2024 Discontinued lecithin 518 mg oral capsule (4 sources) Start: 01-14-2022 End: 04-16-2023 take 518 mg by mouth once daily Lecithin Discontinued 518 MG PO DAILY January 14, 2022 12:00am April 16, 2023 1:01pm Lecithin, Soy 518 mg capsule (2 sources) Start: 01-14-2022 End: 04-16-2023 take 1 capsule by mouth once daily Lecithin, Soy 518 mg capsule Discontinued 518 mg PO DAILY January 14, 2022 12:00am April 16, 2023 1:01pm ondansetron 8 mg oral tablet (1 source) Serotonin-3 Receptor Antagonist Start: 12-05-2015 End: 05-13-2024 take 1 tablet by mouth every eight hours as needed ondansetron (ZOFRAN) 8 mg tablet Take 1 tablet by mouth every 8 hours as needed. 15 tablet 0 12/05/2015 05/13/2024 Discontinued (Discontinued by Patient) thioctic acid 50 mg oral capsule (4 sources) Start: 01-14-2022 End: 04-16-2023 take 50 mg by mouth once daily Alpha Lipoic Acid Discontinued 50 MG PO DAILY January 14, 2022 12:00am April 16, 2023 1:01pm Problems Active Problems Problem Classification Problem Date Documented Date Episodic/Chronic Abdominal pain (18 sources) Right lower quadrant pain; Translations: [Right lower quadrant pain] Onset: 06-28-2024 05-13-2024 Episodic Essential hypertension (8 sources) Hypertensive disorder; Translations: [Essential (primary) hypertension] 01-14-2022 Chronic Immunizations and screening for infectious disease (5 sources) Patient encounter status; Translations: [Encounter for screening for human papillomavirus (HPV)] 05-13-2024 Episodic Menopausal disorders (3 sources) Vaginal dryness; Translations: [Menopausal and female climacteric states] Onset: 05-18-2025 05-18-2025 Chronic Nonmalignant breast conditions (2 sources) Breast finding ; Translations: [Dense breast tissue] 05-13-2024 Episodic Open wounds of extremities (3 sources) Puncture wound of heel; Translations: [Puncture wound without foreign body, unspecified foot, initial encounter] 06-04-2023 Episodic Other circulatory disease (1 source) Elevated blood-pressure reading without diagnosis of hypertension; Translations: [Elevated blood-pressure reading, without diagnosis of hypertension] 05-25-2024 Episodic Other liver diseases (6 sources) Elevated total bilirubin; Translations: [Unspecified jaundice] 01-14-2022 Episodic Other liver diseases (6 sources) Increased bilirubin level; Translations: [Unspecified jaundice] 04-28-2023 Episodic Other liver diseases (2 sources) Unspecified jaundice; Translations: [Disorders of bilirubin excretion] 04-16-2023 Episodic Other nervous system disorders (5 sources) Carpal tunnel syndrome; Translations: [Carpal tunnel syndrome, unspecified upper limb] 04-16-2023 Chronic Other nervous system disorders (2 sources) Carpal tunnel syndrome, unspecified upper limb; Translations: [Carpal tunnel syndrome] 04-16-2023 Chronic Other non-traumatic joint disorders (2 sources) Shoulder pain; Translations: [Pain in unspecified shoulder] 02-26-2024 Episodic Other screening for suspected conditions (not mental disorders or infectious disease) (1 source) Encounter for screening mammogram for malignant neoplasm of breast; Translations: [Encounter for screening mammogram for breast cancer] Onset: 05-26-2025 Episodic Other upper respiratory disease (6 sources) Seasonal allergy; Translations: [Other seasonal allergic rhinitis] 01-14-2022 Chronic Residual codes; unclassified (1 source) Postmenopausal state; Translations: [Asymptomatic menopausal state] 05-18-2025 Episodic Spondylosis; intervertebral disc disorders; other back problems (19 sources) Backache; Translations: [Dorsalgia, unspecified] Onset: 06-28-2024 05-05-2023 Episodic Sprains and strains (1 source) Strain of adductor muscle, fascia and tendon of unspecified thigh, initial encounter; Translations: [Strain of adductor muscle, fascia and tendon of unspecified thigh, initial encounter] Onset: 08-01-2025 Episodic Unclassified (1 source) Patient encounter status 05-18-2025 Past or Other Problems Problem Classification Problem Date Documented Date Episodic/Chronic Biliary tract disease (10 sources) Biliary colic; Translations: [Calculus of bile duct without cholangitis or cholecystitis without obstruction] Onset: 06-02-2014 06-02-2014 Episodic Results Test Name Value Interpretation Reference Range Facility Inital Evaluation (1) - PTon 07-05-2025 Inital Evaluation (1) - PT [facility] [address] [place] [address] / REHABILITATION SERVICES INITIAL EVALUATION MR#: [id number] Acct: [id number] Name: AMINA BELLA Rep #: [id number] : 1965 60 From: Su Ramos PT, Cert. MDT Referring Dr.: Dr. Avril Ziegler MD Status: R EG RCR Insurance: [employer] Patient's Visit Information Visit Information Visit Information: AMINA BELLA is a 60 year old F referred to Physical Therapy by Dr. Avril Ziegler MD with a diagnosis of R GROIN STRAIN. Date of Evaluation: 07/05/25 Physical Therapist: Su Ramos, PT, Cert MDT Visit Plan Frequency: 2x /Week Duration: 4-6 Weeks Plan: MODALITIES NEEDED TO DECREASE PAIN AND INFLAMMATION IN R HIP AND LOW BACK. CORE AND HIP ROM, STRETCHING AND STRENGTHENING TO HELP NORMALIZE BODY MECHANICS AND POSTURE. HOME INSTRUCTIONS. Subjective Subjective: Work/Leisure: [employer] - WORKING ABOUT ONE HOUR A WEEK TO 20 HOURS A WEEK. 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 DOES YOGA 3-4 DAYS A WK VIA A BOOK. LIKES TO WALK 1.5 TO 3.5 MILES A DAY. Present symptoms: R LOW BACK PAIN, R TOP OF HIP AND R GROIN AREA PAIN. HAD R CALF AREA NERVE PAIN FOR THE FIRST TIME FOR ABOUT 10 MIN LAST NIGHT FOR NO APPARENT REASON. Occasionally L HIP, THIGH AND LEG PAIN (STOPS AT ANKLE). DENIES LLE NUMBNESS AND TINGLING. ALSO DENIES R LE NUNBNESS AND TINGLING. ALSO GETS WIERD SENSATION AT TIMES LIKE SHE DOESN'T HAVE ENOUGH STRENGTH TO SUPPORT HER UPPER BODY. Present since: PATIENT WAS IN HER 20'S WHEN IT STARTED. FLARE UP ABOUT 4 WKS AGO - DOING YOGA DOING A DEEP LUNGE AND RAISED ARMS OVER HEAD AND FELT PAIN IN FRONT OF R HIP FOLLOWED BY BRUISE. ALSO INJURED THIS AREA ABOUT 1 YEAR AGO ON TRIP LIFTING BAGGAGE AND FELT SOMETHING PULL IN FRONT OF R HIP AND R GROIN. Pain Scale: WORST 7/10, LEAST 0/10 Currently: 5/10 Is it getting better, worse or staying the same: GETTING WORSE SINCE PUSHING IT WALKING 3.5 YESTERDAY. Commenced as a result of: PAIN/SORENESS DURING WATER SKIING THEN FELL Symptoms at onset: LOW BACK PAIN Worse: RISING FROM SITTING, STANDING, LIFTING ANYTHING, CARRYING ANYTHING, SITTING IN RECLINER OR SOFT THINGS Better: MOVEMENT, STRETCHING, LYING IN ANY POSITION ON A FIRM BED OR ANY HARD SURFACE, TENS, ICE Disturbed sleep: YES Previous history/Previous treatment: ON AND OFF IN 30'S BACK WOULD GIVE OUT AND WOULD TAKE A FEW DAYS TO RECOVER. ABOUT 8 YEARS AGO WAS TAKING CARE OF DAD AND DOING A LOT OF DRIVING AND STARTED HAVING NON STOP PAIN. 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 CHIROPRACTIC X ABOUT 20 YEARS - ONGOING. HAS ALSO HAD PT HERE AT [facility] AND STOPPED DUE TO COVID. SEEING A HVAC SALES REPRESENTATIVE AND HAS HAD MYOFASCIAL RELEASE AND DOING INDEP'LY CURRENTLY. Treatment this episode: SEE ABOVE Coughing/sneezing/st raining: POSITIVE FOR INCREASED PAIN. Gait: DIFFICULTY INITIATING GAIT - TAKES A WHILE TO STRAIGHTEN UP. DENIES FALLING OR FEELING LIKE LEGS ARE GOING TO GIVE OUT. Bowel or Bladder Dysfunction: NO Accidents: NO Unexplained weight loss: NO Imaging: NONE RECENT PMH/Recent major surgery: UNREMARKABLE OTHER: PATIENT REPORTS HER CURRENT INTERVENTIONS ARE LIMITED AND SHE KEEPS FALLING BACK INTO THE SAME FLARE-UPS. PATIENT REPORTS DR. ZIEGLER WANTS TO DO A CT SCAN TO R/O HERNIA IF NO IMPROVEMENT IN 3 WKS. Objective Objective: Sitting/Standing Posture: ANTERIOR PELVIC TILT, INCREASED LORDOSIS. AND R ILIAC CREST HIGHER THAN L. Active Correction of posture: WORSE. ABLE TO ABOLISH BACK AND HIP PAIN TO 0/10 WITH SLOUCHING IN SITTING. Other Observations: PATIENT IS INITIALLY STUCK IN LORDOSIS. Sensory deficit: JAIME LE LIGHT TOUCH SENSATION GROSSLY INTACT AND SYMMETRICAL ROM deficit: JAIME HIP FLEXOR TIGHTNESS Motor deficit: JAIME LE STRENGTH GROSSLY 5/5 EXCEPT R HIP FLEX 4-/5, L HIP FLEX 4/5. Reflexes: JAIME QUADS 2+, ACHILLES 2+ Dural Signs: POSITIVE LLE. NEGATIVE R LE. Lumbar mvmt loss: flex - NIL ext - ALON - INCREASES BACK - NW R SG - MIN - DECREASES BACK - NB L SG - MOD Core strength: FAIR Palpation: LUMBAR AND DEEP R HIP FLEXOR TENDERNESS. TREATMENT: NEUROMUSCULAR REEDUCATION - RETRAINING OF MVMT AND POSTURE FOR SITTING, LYING AND STANDING ACTIVITIES WITH RECOMMENDATION FOR NEUTRAL SPINE AND FREQUENT CHANGE OF POSITION TO TRY TO AVOID AGGREVATING SYMPTOMS. INSTRUCTION IN USE OF LUMBAR SUPPORT IN SITTING TOLERATED. DX ED. Balance/Special Test Scores Lower Extremity Functional Score: 65 Goals Goal 1:: DECREASE C/O BACK AND R LE PAIN BY AT LEAST 75% TO EASE WORK AND ADL FUNCTION Goal Time Frame: 4-6 Weeks Goal 2:: PATIENT WILL REPORT BEING ABLE TO TOLERATE SITTING FOR WORK AND LEISURE LONG NECESSARY/DESIRED WITH PAIN 0-2/10. Goal Time Frame: 4-6 Weeks Goal 3:: PATIENT WILL D (more content not included)... Normal [facility] MR/BMS.IMBon 06-28-2025 MR/BMS.IMB [facility] [address] [place] [address] OFFICE VISIT Date of Service: 06/28/25 MR#: [id number] Acct: [id number] Name: AMINA BELLA Rep #: [id number] : 1965 Provider: Dr. Avril avalos MD Age/Sex: 60/F Location: [facility] Status: Signed with Addenda ADDENDUM by Dr. Avril Ziegler MD on 07/21/25 at 0751 HPI Details: AMINA BELLA, is a 60 F who presents to the office today for Assessment and Plan Assessment and Plan (1) Discomfort of right groin: Status: Acute (2) Groin strain: Status: Acute Orders: Referrals PT Referral R10.31 - Right lower quadrant pain, S76.219A - Strain of adductor muscle, fascia and tendon of unspecified thigh, initial encounter Plan Details Additional Comments: Addendum: Patient has continued right groin pain, discomfort. Question muscle tear, question hernia at this point. At this point, CT abdomen pelvis. She has iodine contrast allergy. This needs to be done noncontrast to evaluate further. Has failed PT. Any reasonable minded physician would want to investigate this further at this point, particular since has failed PT. 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 Required: No Accompanied by: Self Is patient in pain?: Yes (Lower back and groin pain) Pain scale (1-10): 3 Allergies Latex, Natural Rubber Allergy (Unknown, Verified 06/28/25 09:56) unknown gluten Adverse Reaction (Unknown, Verified 06/28/25 09:56) headaches Medications ???Medication ???Instructions ???Recorded ???Confirmed ???Type B-complex with vitamin C 1 cap PO DAILY 01/14/22 06/28/25 H istory cholecalciferol (vitamin D3) 25 25 mcg PO DAILY 01/14/22 06/28/25 History mcg (1,000 unit) capsule iodizime PO 01/14/22 06/28/25 History quercet PO 01/14/22 06/28/25 History zinc 50 mg tablet 50 mg PO DAILY 01/14/22 06/28/25 H istory omega-3 fatty acids 1,000 mg 1,000 mg PO DAILY 02/26/24 5 History capsule PFSH Medical History (Updated 06/28/25 @ 10:[address] Avril Ziegler MD) Groin strain Discomfort of right groin Seasonal allergies Hypertension Surgical History History of H/O adenoidectomy History of appendectomy History of cholecystectomy (2016) Family History Other Asthma Heart disease Hyperlipemia Hypertension Myocardial infarction Skin cancer Thyroid disorder Social History Smoking Status: Never smoker alcohol intake: current alcohol intake frequency: holidays/special occasions only Alcohol type: wine substance use type: does not use what type of physical activity do you participate in: walking, swimming and yoga frequency: 3-4 times per week HPI HPI Chief Complaint: Rt side muscle pull Details: AMINA BELLA, is a 60 F who presents to the office today for an acute care follow-up visit. 60-year-old female who states that several weeks ago, while doing her yoga exercises, where she was stretching the hip, and stretching backwards same time, felt more open abrupt onset once again of right groin area discomfort. Over the ensuing couple of weeks now, she has limited her activities due to the discomfort but she was also away, on a trip flying, and also in some training so she was seated much of the time. She notes when getting up from seated position that it was quite uncomfortable, burning discomfort in the right lower abdomen area, anterior hip but also in the posterior upper buttock area. In 2020 she had an injury in a similar fashion, ultimately felt to be a groin pull. She did physical therapy however then COVID hit and she was not able to complete therapy. She stated it was helping at the time. Largely gradually resolved. In 2021 we discussed that at a visit and I had suggested that when she sees her OB physician at that time, that they would also do full evaluation for possible hernia. No clear findings and did not feel it was an OB related issue she stated back then. In addition she over the last several years has been then following with a chiropractor/kinesio logist in [place] (more content not included)... Normal [facility] YULY SCREENING W JAMESAnna 05-26 YULY SCREENING W ROLAND * * *Final Report* * * DATE OF EXAM: May 26 2025 7:51AM [id number] - YULY SCREENING W ROLAND / PROCEDURE REASON: Encounter for screening mammogram for breast cancer * * * * Physician Interpretation * * * * RESULT: [facility] [address] [place] [address] #[id number] - YULY SCREENING W ROLAND HISTORY: 60 year-old patient presents for screening. Patient is asymptomatic in both breasts. Patient states no personal history of breast cancer. COMPARISON STUDIES: The present examination has been compared to prior imaging studies dated 07/22/2019 (mammogram), 01/08/2021 (mammogram) and 05/23/2022 (mammogram). MAMMOGRAM TECHNIQUE: The study was acquired using full field digital technology and interpreted from soft copy. Digital Breast Tomosynthesis (DBT) images were obtained and used to assist in the interpretation of this examination. MAMMOGRAM FINDINGS: The breasts are almost entirely fatty. No suspicious masses, calcifications or other abnormalities are seen in either breast. There are no significant interval changes. IMPRESSION: There is no mammographic evidence of malignancy in either breast. Routine screening mammogram is recommended. Annual mammogram will be due in 1 year. BI-RADS Category 1: Negative RISK: Based on the Tyrer-Cuzick (TC) risk assessment model, this patient has a 3.4% lifetime risk of developing breast cancer, meaning they are at average risk for developing breast cancer. However, this is only an estimate based on available history provided on the patient's questionnaire. We encourage all patients to talk with their providers about these results, further recommendations for managing breast health, and appropriate supplemental screening options if the patient has dense breast tissue. Interpreting Radiologist: Nic Hughes M.D. Electronically signed on: 05/30/2025 Coding Coordinator: JHOAN Transcribe Date/Time: May 26 2025 7:34A Dictated by: NIC HUGHES MD This examination was interpreted and the report reviewed and electronically signed by: NIC HUGHES MD on May 30 2025 9:40AM EST [id number] Normal [facility] MR/EVELYN.JOSEBon 05-25-2025 MR/EVELYN.JOSEB [facility] [place] [address] OFFICE VISIT Date of Service: 05/25/25 MR#: [id number] Acct: [id number] Name: AMINA BELLA Rep #: [id number] : 1965 Provider: Dr. Avril avalos MD Age/Sex: 60/F Location: [facility] Status: Signed Intake Vital Signs 02/26/24 08:04 05/25/25 08:04 Height 5 ft 3 in 5 ft 3 in Weight: 148 lb BMI 26.2 BP 160/95 H Blood Pressure Location Lt brachial Position Sitting Respiration 16 Pulse 73 Pulse Source Monitor Temp 97.8 F Temp Source Temporal Pulse Oximetry (%) 98 Oxygen Delivery Method room air Intake Visit Reasons: Annual/Physical Factory Focus Technician Required: No Accompanied by: Self Is patient in pain?: No Allergies Latex, Natural Rubber Allergy (Unknown, Verified 05/25/25 07:59) unknown gluten Adverse Reaction (Unknown, Verified 05/25/25 07:59) headaches Medications ???Medication ???Instructions ???Recorded ???Confirmed ???Type B-complex with vitamin C 1 cap PO DAILY 01/14/22 05/25/25 H istory cholecalciferol (vitamin D3) 25 25 mcg PO DAILY 01/14/22 05/25/25 History mcg (1,000 unit) capsule iodizime PO 01/14/22 05/25/25 History quercet PO 01/14/22 05/25/25 History zinc 50 mg tablet 50 mg PO DAILY 01/14/22 05/25/25 H istory omega-3 fatty acids 1,000 mg 1,000 mg PO DAILY 02/26/24 5 History capsule PFSH Medical History Seasonal allergies Hypertension Surgical History History of H/O adenoidectomy History of appendectomy History of cholecystectomy (2015) Family History Other Asthma Heart disease Hyperlipemia Hypertension Myocardial infarction Skin cancer Thyroid disorder Social History Smoking Status: Never smoker alcohol intake: current alcohol intake frequency: holidays/special occasions only Alcohol type: wine substance use type: does not use what type of physical activity do you participate in: walking, swimming and yoga frequency: 3-4 times per week HPI HPI Details: AMINA BELLA, is a 60 F who presents to the office today for annual physical. 60-year-old female who has no longstanding medical problems takes no routine long-term medications. She takes vitamin D supplement, omega-3 fatty acids, kerosene, zinc, B complex. In general, patient has been doing well. She does get some morning sinus pressure, headaches that she attributes to her allergies but overall actually feels that they are doing better than they had in other years. Recently, due to with the weather cooling down, they have been opening their windows in the evenings and that probably she feels contributes to some of those symptoms but again fairly mild and manageable. She does continue to follow with women's health, mammogram is scheduled for tomorrow. She has been increasing her physical activity. She used to run regularly however got away from that but more recently has now gotten back to it. Typically a couple of days a week she is running typically a couple of miles. She walks the other days. Generally speaking feels well, continue to eat overall good quality diet. Avoiding vegetable oils as a general rule. No deep-fried. More salads, vegetables, some meats and fish. We spent some time today, reviewing information regarding the different types of fats, vegetable oils and some of the problems with these. She does bring in some blood pressure readings that she has been following at home. She typically does have some mild elevations in blood pressures when she comes into the office. At home, over the last month, where she is periodically monitoring, they would tend to average somewhere around mid 120s over mid 70s. I did provide her some blood pressure monitoring sheets to perhaps over the next few weeks, document morning and later in the evening blood pressures and then drop them off and we will look at the averages that way. Review of systems per chart. Physical exam. Vital signs on chart. EOMI. PERRLA. Sclera are clear. TMs are unremarkable with normal light reflexes. Canals are unremarkable. Posterior pharynx is unremarkable. No mucosal lesions. Good dentition. No cervical or supraclavicular lymph nodes enlarged or tender. No clear thyromegaly. No thyroid nodules readily palpable. Lungs are without wheeze, rhonchi, rales. No E/A changes are heard. Heart is regular. Not tachycardic. No clear murmur, rub, or gallop is identified. The abdomen is soft. Bowel sounds are present. Nontender nondistended abdomen. No clear palpable masses in the abdomen. No significant leg edema. Cranial nerve examinati (more content not included)... Normal [facility] CNOVon 05-18-2025 CNOV Office Visit (OBGYWM) AMINA BELLA ([id number]) 1965 F Date Time Provider Department 05/18/25 10:45 AM ROSITA RESEDNIZ OBGYWM During your visit today, we recorded the following information about you: Blood pressure Weight Height Last Period 118/80 67.8 kg 1.613 m 12/21/21 Rosita Resendiz APRN.CNM 05/18/2025 11:22 AM Signed Inventory Administrator offered: Patient declines. Amina is a 60 year old who presents for an annual gynecologic exam with complaints, burning after intercourse. Using coconut oil for lubricant. Postmenopausal: Yes since age 55 HRT use: No. Still get period: No Menopause symptoms: Hot flashes; Vaginal dryness Time with current partner: 34 yrs Number of lifetime partners: 1 control frequency: Never HPV vaccine: No; Last pap smear: 05/13/2024, normal History of abnormal pap: No, all prior PAP smears have been normal Bothersome pelvic pain: No Last mammogram: 2022 normal History of abnormal mammogram: No OB History Gravida4 Para3 Term3 Preterm0 AB1 Living3 SAB0 IAB0 Ectopic0 Multiple0 Live Births3 Comment: Menarche at age 13. First full term at age 29. Is premenopausal. [employer] History LMP: 12/21/2021, Postmenopausal Age at Menarche: 13 Age at First : Age at Menopause: [employer] History Comments: Sexual Activity: Yes; Male; postmenopausal Contraception: Other PAST MEDICAL HISTORY Diagnosis Date Vasculitis 2013 PAST SURGICAL HISTORY Procedure Laterality Date ADENOIDECTOMY HX 09/22/1977 APPENDECTOMY HX 09/22/1980 DELIVERY ONLY 1993 DELIVERY ONLY 2007 LAPS SURG CHOLECYSTECTOMY W/CHOLANGIOGRAPHY 12/04/2015 normal [facility] FAMILY HISTORY Problem Relation Age of Onset other (No family hx of breast cancer[Other]) Unknown Cancer Paternal Grandfather stomach Hypertension Father Heart Mother Heart Father Heart Maternal Grandmother SOCIAL HISTORY Social History Tobacco Use Smoking status: Never Smokeless tobacco: Never Vaping Use Vaping status: Never Used Substance Use Topics Alcohol use: Yes Comment: occasionally Drug use: Never REVIEW OF SYSTEMS Abdomen: No abdominal pain, nausea, vomiting, diarrhea, or constipation. No bloating, early satiety, indigestion, or increased flatulence. Bladder: No dysuria, gross hematuria, urinary frequency, urinary urgency, or incontinence Breast: No breast lumps, nipple d/c, overlying skin changes, redness or skin retraction Allergies and current medication updated:Yes SENSITIVE EXAM: The sensitive examination was discussed with the Patient or Patient's Authorized Rabbit Fancier. As applicable, any other physician, advance practice provider, medical student, or other health professional student that will be observing or involved in the sensitive examination for educational or training purposes was discussed with the Patient or Authorized Rabbit Fancier. The Patient or Authorized Rabbit Fancier has agreed to proceed with the sensitive examination. (Sensitive examination includes inspection and/or palpation of the breasts, pelvis, prostate and anorectal regions). EXAM: BP 118/80 Ht 5' 3.5 (1.61m) Wt 149 lb 6.4 oz (67.8kg) LMP 12/21/2021 BMI 26.05 kg/(m2). GENERAL: pleasant, female in no apparent distress HEENT: Normocephalic and atraumatic NECK: Supple and full range of motion DERMATOLOGY: Normal and without lesions BREAST: soft, non-tender, symmetric, no dominant mass, normal nipple-areolar complex, no lymphadenopathy, and no nipple discharge CHEST: Normal inspiratory effort ABDOMEN: soft, non-tender, and no masses PELVIC: external genitalia normal, normal Bartholin's glands, urethra, Adams's glands, no vulvar lesions, no cervical lesions, good vaginal support, physiologic discharge present, normal appearing perineal body and perianal region, atrophic changes BIMANUAL: uterus normal size, shape and consistency, no adnexal masses, non-tender, and no cervical motion tenderness RECTOVAGINAL: deferred. NEURO: alert and oriented x3,exam grossly non-focal EXTREMITIES: normal ASSESSMENT/PLAN: 1) Health maintenance: Pap/HPV up to date. Mammogram ordered Nutrition, exercise and routine health maintenance exams reviewed. Colon cancer screening: up to date with screening TSH/lipids/glucose: followed by PCP 2) Follow up one year or sooner as needed FLY Clancy Courtney, APRN.CNM 05/18/2025 10:55 AM Signed Non-Hormonal Vaginal Lubricants AND Vaginal Moisturizers Symptoms of vaginal dryness can be managed by the regular use of vaginal moisturizing agents with supplemental use of vaginal lubricants for sexual intercourse. . Use of vaginal moisturizers and lubricants alone is effective treatment for vaginal dryness or dyspareunia (pain with intercourse) in some patients. Vaginal lubrications- Vagin (more content not included)... Normal [facility] Abdomen Limitedon 10-20-2024 Abdomen Limited [facility] [address] [place] [address] [id number] Abdomen Limited MR#: [id number] Acct: [id number] Name: AMINA BELLA Rep #: [id number] : 1965 F 59 From: [employer] PCP: Dr. Avril Ziegler MD Status: [facility] CLI Study: Abdomen Limited Date of Exam: 10/20/24 Exam# [id number] Ordering Dr: ALPA DAMIAN PROCEDURE: ABDOMEN LIMITED REASON FOR EXAM: Abdominal pain. COMPARISON: Ultrasound 05/13/2023. FINDINGS: Liver: Normal size and echotexture. The liver is measured at 15.5 cm in length. No evidence of intrahepatic biliary ductal dilation. Hepatopetal flow is noted. Gallbladder: Surgically absent. Common bile duct: Normal measuring 3 mm. Pancreas: Visualized portions are sonographically unremarkable. The right kidney is measured at 10.4 x 4.6 x 3.1 mm. Parenchymal thicknesses and echotextures are preserved. The cortex is measured at 10 mm in thickness. No hydronephrosis. Peritoneal Findings: No ascites identified in visualized areas. US/Abdomen Limited IMPRESSION: 1. Prior cholecystectomy. 2. No acute process is seen. Reading Location: [address] CC: Dr. Avril Ziegler MD; ALPA DAMIAN Coding Coordinator: Signed Normal [facility] CNTHERAPYon 09-03-2024 CNTHERAPY OT/PT/Speech Visit (PTWS) AMINA BELLA ([id number]) 1965 F Date Time Provider Department 09/03/24 1:00 PM CESAR MAO PTSINGH Date Time Provider Department Center 09/03/2024 1:00 PM [id number], BRENT PTWS [facility] Reason for Visit: Physical Therapy [503] PT Discharge [752] Primary Visit Diagnosis:Right groin pain [R10.31] Other Visit Diagnosis:Acute back pain with sciatica, right [M54.41] Allergies As of Date: 09/03/2024 Noted Allergy Reaction CODEINE 06/02/2014 11 - Vomiting LATEX, NATURAL RUBBER 01/14/2022 2 - Rash 7 - Swelling Date Reviewed: 05/25/2024 Reviewed by: Sharda Cedeno LPN - Fully Assessed Prescriptions as of 09/03/2024 - ascorbic acid (VITAMIN C ORAL) Take by mouth. - cholecalciferol, vitamin D3, (VITAMIN D3 ORAL) Take by mouth. - vitamin B complex-folic acid 2,000 mcg cap Take by mouth. - ZINC ORAL Take by mouth. Normal [facility] CNTHERAPYon 07-22-2024 CNTHERAPY OT/PT/Speech Visit (PTWS) KATLYNAMINA Jas ([id number]) 1965 F Date Time Provider Department 07/22/24 8:00 AM PINKY LADD PTWS Date Time Provider Department [place] 07/22/2024 8:00 AM [id number], MARIAH PTWS Amanda Vincent Reason for Visit: Physical Therapy [503] Primary Visit Diagnosis:Right groin pain [R10.31] Other Visit Diagnosis:Acute back pain with sciatica, right [M54.41] Allergies As of Date: 07/22/2024 Noted Allergy Reaction CODEINE 06/02/2014 11 - Vomiting LATEX, NATURAL RUBBER 01/14/2022 2 - Rash 7 - Swelling Date Reviewed: 05/25/2024 Reviewed by: Sharda Cedeno LPN - Fully Assessed Prescriptions as of 07/22/2024 - ascorbic acid (VITAMIN C ORAL) Take by mouth. - cholecalciferol, vitamin D3, (VITAMIN D3 ORAL) Take by mouth. - vitamin B complex-folic acid 2,000 mcg cap Take by mouth. - ZINC ORAL Take by mouth. Rope Cleaner: Therapy (PT/OT/Speech/Resp) ID: [id number] 07/22/2024 8:36 AM Author: PINKY LADD Signed by PINKY LADD SUPERVISOR DIAGNOSTIC on 07/22/2024 at 8:36 AM Document text: Program_ID:[id number] Access Code: [email or web address] URL: [email or web address] Date: 07-22-2024 Prepared By: Cesar Mao Program Notes Exercises - Hooklying Single Knee to Chest Stretch - 3 x daily - 7 x weekly - sets - 3 reps - Supine Double Knee to Chest - 3 x daily - 7 x weekly - sets - 3 reps - Seated Flexion Stretch - 2-3 x daily - 7 x weekly - 2 sets - 10 reps - Supine Lower Trunk Rotation - 2-3 x daily - 7 x weekly - 2 sets - 10 reps - Supine Posterior Pelvic Tilt - 2-3 x daily - 7 x weekly - 2 sets - 10 reps - Supine March with Posterior Pelvic Tilt - 2-3 x daily - 7 x weekly - 2 sets - 10 reps - Bent Knee Fallouts with Alternating Legs - 2-3 x daily - 7 x weekly - 2 sets - 10 reps - Supine Hip Extension on Bench - 1 x daily - 7 x weekly - 2 sets - 10 reps - Standing Anti-Rotation Press with Anchored Resistance - 1 x daily - 7 x weekly - 2 sets - 10 reps - Stir the Pot - 1 x daily - 7 x weekly - 2 sets - 10 reps - Wallisian Ball Hip Lifts - 1 x daily - 7 x weekly - 2 sets - 10 reps -------- Normal [facility] THERAPY NTon 07-22-2024 THERAPY NT HNO ID: [id number] Author: PINKY LADD PTA Service: ? Author Type: Local Superintendent Type: Therapy (PT/OT/Speech/Resp) Filed: 07/22/2024 08:36 Note Text: Program_ID:[id number] Access Code: [email or web address] URL: [email or web address]/ Date: 07-22-2024 Prepared By: Cesar Mao Program Notes Exercises - Hooklying Single Knee to Chest Stretch - 3 x daily - 7 x weekly - sets - 3 reps - Supine Double Knee to Chest - 3 x daily - 7 x weekly - sets - 3 reps - Seated Flexion Stretch - 2-3 x daily - 7 x weekly - 2 sets - 10 reps - Supine Lower Trunk Rotation - 2-3 x daily - 7 x weekly - 2 sets - 10 reps - Supine Posterior Pelvic Tilt - 2-3 x daily - 7 x weekly - 2 sets - 10 reps - Supine March with Posterior Pelvic Tilt - 2-3 x daily - 7 x weekly - 2 sets - 10 reps - Bent Knee Fallouts with Alternating Legs - 2-3 x daily - 7 x weekly - 2 sets - 10 reps - Supine Hip Extension on Bench - 1 x daily - 7 x weekly - 2 sets - 10 reps - Standing Anti-Rotation Press with Anchored Resistance - 1 x daily - 7 x weekly - 2 sets - 10 reps - Stir the Pot - 1 x daily - 7 x weekly - 2 sets - 10 reps - Wallisian Ball Hip Lifts - 1 x daily - 7 x weekly - 2 sets - 10 reps Normal [facility] CNTHERAPYon 07-08-2024 CNTHERAPY OT/PT/Speech Visit (PTWS) AMINA BELLA ([id number]) 1965 F Date Time Provider Department 07/08/24 8:00 AM PINKY LADD PTWS Date Time Provider Department [place] 07/08/2024 8:00 AM [id number], MARIAH PTWS Amanda Vincent Reason for Visit: Physical Therapy [503] Primary Visit Diagnosis:Right groin pain [R10.31] Other Visit Diagnosis:Acute back pain with sciatica, right [M54.41] Allergies As of Date: 07/08/2024 Noted Allergy Reaction CODEINE 06/02/2014 11 - Vomiting LATEX, NATURAL RUBBER 01/14/2022 2 - Rash 7 - Swelling Date Reviewed: 05/25/2024 Reviewed by: Sharda Cedeno LPN - Fully Assessed Prescriptions as of 07/08/2024 - ascorbic acid (VITAMIN C ORAL) Take by mouth. - cholecalciferol, vitamin D3, (VITAMIN D3 ORAL) Take by mouth. - vitamin B complex-folic acid 2,000 mcg cap Take by mouth. - ZINC ORAL Take by mouth. Rope Cleaner: Therapy (PT/OT/Speech/Resp) ID: [id number] 07/08/2024 8:33 AM Author: PINKY LADD Signed by PINKY LADD SUPERVISOR DIAGNOSTIC on 07/08/2024 at 8:33 AM Document text: Program_ID:[id number] Access Code: [email or web address] URL: [email or web address]://[email or web address]/ Date: 07-08-2024 Prepared By: Cesar Mao Program Notes Exercises - Hooklying Single Knee to Chest Stretch - 3 x daily - 7 x weekly - sets - 3 reps - Supine Double Knee to Chest - 3 x daily - 7 x weekly - sets - 3 reps - Seated Flexion Stretch - 2-3 x daily - 7 x weekly - 2 sets - 10 reps - Supine Lower Trunk Rotation - 2-3 x daily - 7 x weekly - 2 sets - 10 reps - Supine Posterior Pelvic Tilt - 2-3 x daily - 7 x weekly - 2 sets - 10 reps - Supine March with Posterior Pelvic Tilt - 2-3 x daily - 7 x weekly - 2 sets - 10 reps - Bent Knee Fallouts with Alternating Legs - 2-3 x daily - 7 x weekly - 2 sets - 10 reps -------- Normal [facility] THERAPY NTon 07-08-2024 THERAPY NT HNO ID: [id number] Author: PINKY LADD PTA Service: ? Author Type: Local Superintendent Type: Therapy (PT/OT/Speech/Resp) Filed: 07/08/2024 08:33 Note Text: Program_ID:[id number] Access Code: [email or web address] URL: [email or web address]://[email or web address]/ Date: 07-08-2024 Prepared By: Cesar Mao Program Notes Exercises - Hooklying Single Knee to Chest Stretch - 3 x daily - 7 x weekly - sets - 3 reps - Supine Double Knee to Chest - 3 x daily - 7 x weekly - sets - 3 reps - Seated Flexion Stretch - 2-3 x daily - 7 x weekly - 2 sets - 10 reps - Supine Lower Trunk Rotation - 2-3 x daily - 7 x weekly - 2 sets - 10 reps - Supine Posterior Pelvic Tilt - 2-3 x daily - 7 x weekly - 2 sets - 10 reps - Supine March with Posterior Pelvic Tilt - 2-3 x daily - 7 x weekly - 2 sets - 10 reps - Bent Knee Fallouts with Alternating Legs - 2-3 x daily - 7 x weekly - 2 sets - 10 reps Normal [facility] CNTHERAPYon 06-28-2024 CNTHERAPY OT/PT/Speech Visit (PTWS) AMINA BELLA ([id number]) 1965 F Date Time Provider Department 06/28/24 8:30 AM CESAR MAO PTSINGH Date Time Provider Department [place] 06/28/2024 8:30 AM [id number], BRENT PTWS Amanda Vincent Reason for Visit: PT Eval [747] Primary Visit Diagnosis:Acute back pain with sciatica, right [M54.41] Other Visit Diagnoses:Right groin pain [R10.31] Right-sided low back pain with right-sided sciatica, unspecified chronicity [M54.41] Allergies As of Date: 06/28/2024 Noted Allergy Reaction CODEINE 06/02/2014 11 - Vomiting LATEX, NATURAL RUBBER 01/14/2022 2 - Rash 7 - Swelling Date Reviewed: 05/25/2024 Reviewed by: Sharda Cedeno LPN - Fully Assessed Prescriptions as of 06/28/2024 - ascorbic acid (VITAMIN C ORAL) Take by mouth. - cholecalciferol, vitamin D3, (VITAMIN D3 ORAL) Take by mouth. - vitamin B complex-folic acid 2,000 mcg cap Take by mouth. - ZINC ORAL Take by mouth. Rope Cleaner: Addendum Therapy (PT/OT/Speech/Resp) ID: [id number] 06/28/2024 9:31 AM Author: CESAR MAO Signed by CESAR MAO PT on 06/28/2024 at 9:31 AM * * * This document replaces document [id number] * * * Document text: Program_ID:[id number] Access Code: [email or web address] URL: [email or web address]://[email or web address]/ Date: 06-28-2024 Prepared By: Cesar Mao Program Notes Exercises - Hooklying Single Knee to Chest Stretch - 3 x daily - 7 x weekly - sets - 3 reps - Supine Double Knee to Chest - 3 x daily - 7 x weekly - sets - 3 reps -------- Normal [facility] THERAPY NTon 06-28-2024 THERAPY NT HNO ID: [id number] Author: CESAR MAO, PT Service: ? Author Type: Physical Therapist Type: Therapy (PT/OT/Speech/Resp) Filed: 06/28/2024 09:31 Note Text: Program_ID:[id number] Access Code: [email or web address] URL: [email or web address]://[email or web address]/ Date: 06-28-2024 Prepared By: Cesar Mao Program Notes Exercises - Hooklying Single Knee to Chest Stretch - 3 x daily - 7 x weekly - sets - 3 reps - Supine Double Knee to Chest - 3 x daily - 7 x weekly - sets - 3 reps Normal [facility] Absolute lymphocyte countOrd ered By: Avril Ziegler on 04-25-2023 Lymphocytes Auto (Unsp spec) [#/Vol] 1.69 10*3/uL 0.83-4.51 [facility] Basophil percentageOrdered B y: Elder Oswald on 04-25-2023 Basophil percentage 0 SEEN /hpf 0-5 [facility] Basophil percentageOrdered B y: Avril Ziegler on 04-25-2023 Basophils/100 WBC (Bld) 1.4 % 0-1 [facility] Bilirubin [Mass/Vol] 1.90 mg/dL 0.20-1.00 [facility] Comment on above: For patients on eltr ombopag therapy, use of Dimension [place] TBIL is not recommended. Chloride [Moles/Vol] 104 mmol/L 98-107 [facility] Cholesterol [Mass/Vol] 189 mg/dL <200 [facility] Comment on above: <200 mg/dL Desirable 200-240 mg/dL Borderline >240 mg/dL High Risk Eosinophils/100 WBC (Bld) 5.7 % 0-5 [facility] Glucose [Mass/Vol] 97 mg/dL 74-106 [facility] LDH [Catalytic activity/Vol] 183 U/L 84-246 [facility] Neutrophils (Bld) [#/Vol] 2.6 10*3/uL 2.0-7.7 [facility] Neutrophils/100 WBC (Bld) 52.3 % 47-70 [facility] Potassium [Moles/Vol] 4.0 mmol/L 3.5-5.1 [facility] Protein [Mass/Vol] 7.8 g/dL 6.4-8.2 [facility] Sodium [Moles/Vol] 136 mmol/L 136-145 [facility] Triglyceride [Mass/Vol] 79 mg/dL <199 [facility] Comment on above: The drugs N-Acetylcy steine and Metamizole may falsely depress this assay.Serum Triglycerides Reference Interval Normal <150 mg/dL Borderline high 150 - 199 mg/dL High 200 - 499 mg/dL Very High > or = 500 mg/dL WBC (Bld) [#/Vol] 4.9 10*3/uL 4.4-11.0 [facility] Bilirubin Test strip Ql (U)O rdered By: Elder Oswald on 04-25-2023 Bilirubin Ql (U) Negative Negative [facility] Blood erythrocytes count (nu mber/volume)Ordered By: Avril Ziegler on 04-25-2023 RBC (Bld) [#/Vol] 4.61 10*6/uL 4.2-5.4 [facility] Blood hemoglobin measurement (mass/volume)Ordered By: Avril Ziegler on 04-25-2023 Hemoglobin (Bld) [Mass/Vol] 14.1 g/dL 12.0-15.0 [facility] Blood lymphocytes/100 leukoc ytesOrdered By: Avril Ziegler on 04-25-2023 Lymphocytes/100 WBC (Bld) 34.3 % 19-41 [facility] Blood monocytes/100 leukocyt esOrdered By: Avrilmason Ziegler on 04-25-2023 Monocytes/100 WBC (Bld) 6.1 % 0-10 [facility] Blood platelet mean volumeOr dered By: Avril Ziegler on 04-25-2023 Platelet mean volume (Bld) [Entitic vol] 10.6 fL 6.2-12.0 [facility] Cervical or vagninal specime n microscopic examination by cytology stain (reported asOrdered By: Elder Oswald on 04-25-2023 Cytology report Cyto stain Doc (Cvx/Vag) Comment . [facility] Comment on above: The Pap smear is a s creening test designed to aid in thedetection of premalignant and malignant conditions of theuterine cervix. It is not a diagnostic procedure andshould not be used as the sole means of detecting cervicalcancer. Both false-positive and false-negative reports dooccur. Culture, urineOrdered By: Chapin Oswald on 04-25-2023 Bacteria identified Cx Nom (U) Culture exhibits no growth. [facility] Detection in cervical specim en of any of human papilloma virus (HPV) 16, 18, 31, 33,Ordered By: Elder Oswald on 04-25-2023 HPV 16+18+31+33+35+39+45+51+ 52+56+58+59+66+68 DNA Probe+sig amp Ql (Cvx) Negative Negative [facility] Comment on above: This nucleic acid am plification test detects fourteen high-risk HPV types (16,18,31,33,35,39,45,51,52,56,58,59,66,68)without differentiation. Determination of erythrocyte mean corpuscular volume (MCV)Ordered By: Avril Ziegler on 04-25-2023 MCV (RBC) [Entitic vol] 88.7 fL 81-99 [facility] Direct bilirubinOrdered By: Avril Ziegler on 04-25-2023 Bilirubin.direct [Mass/Vol] 0.35 mg/dL 0.00-0.30 [facility] Hematocrit Auto (Bld) [Volum e fraction]Ordered By: Avril Ziegler on 04-25-2023 Hematocrit (Bld) [Volume fraction] 40.9 % 37-47 [facility] Ketones Test strip Ql (U)Ord ered By: Elder Oswald on 04-25-2023 Ketones Ql (U) Negative Negative [facility] Laboratory - Chemistry and C hemistry - challengeOrdered By: Avril Ziegler on 04-25-2023 ALP [Catalytic activity/Vol] 87 U/L 45-117 [facility] ALT [Catalytic activity/Vol] 33 U/L 13-56 [facility] CO2 [Moles/Vol] 28.0 mmol/L 21.0-32.0 [facility] Globulin (S) [Mass/Vol] 3.9 g/dL 2.2-4.2 [facility] Urea nitrogen/Creatinine [Mass ratio] 9.9 mg/mg 10-20 [facility] Laboratory - CytologyOrdered By: Elder Oswald on 04-25-2023 [employer] Brim Cutter Cyto stain Nom (Cvx/Vag) [ID] Comment . [facility] Comment on above: Elder Oswald , Instrumental Music Teacher (ASCP) Laboratory - Hematology and Cell countsOrdered By: Avril Ziegler on 04-25-2023 Erythrocyte distribution width (RBC) [Entitic vol] 43.0 fL 35.1-43.9 [facility] Erythrocyte distribution width (RBC) [Ratio] 13.2 % 11.6-14.6 [facility] Immature granulocytes/100 WBC (Bld) 0.200 % 0.0-0.9 [facility] Comment on above: IG% - Immature Granu locytes (promyelocytes, myelocytes and metamyelocytes) > 1% indicates that a LEFT SHIFT is Present. MCH (RBC) [Entitic mass] 30.6 pg 27.0-32.0 [facility] Nucleated RBC/100 WBC (Bld) [Ratio] 0 % 0-5 [facility] Laboratory - Miscellaneous t estsOrdered By: Elder Oswald on 04-25-2023 Service comment (Unsp spec) [Interp] Comment . [facility] Comment on above: This liquid based Th inPrep(R) pap test was screened withthe use of an image guided system. Service comment (Unsp spec) [Interp] . . [facility] Liquid-based cerv Pap + CT/G C by NICOLE w reflex to high-risk HPV for ASCUSOrdered By: Elder Oswald on 04-25-2023 Cytology report Cyto stain.thin prep Doc (Cvx/Vag) Comment . [facility] Comment on above: Criteria not met, HP V Genotype not performed.Performed at: [facility] [id number] Director: Hanna Hernandez MD, Phone: [phone] at: =[facility] - [facility] [id number] Director: Hanna Hernandez MD, Phone: [phone] MCHC Auto (RBC) [Mass/Vol]Or dered By: Avril Ziegler on 04-25-2023 MCHC (RBC) [Mass/Vol] 34.5 g/dL 32-36 [facility] Mucus LM Ql (Urine sed)Order ed By: Elder Oswald on 04-25-2023 Mucus Ql (Urine sed) 0 SEEN /hpf [facility] Nitrite Test strip Ql (U)Ord ered By: Elder Oswald on 04-25-2023 Nitrite Ql (U) Negative Negative [facility] No Panel InformationOrdered By: Elder Oswald on 04-25-2023 Pathology report final diagnosis Narrative Comment . [facility] Comment on above: NEGATIVE FOR INTRAEP ITHELIAL LESION OR MALIGNANCY.CELLULAR CHANGES ASSOCIATED WITH ATROPHY ARE PRESENT. No Panel InformationOrdered By: Avril Ziegler on 04-25-2023 Estimated GFR (MDRD) Amer 83 mL/min >60 [facility] Comment on above: GFR Calc Estimated GFR (MDRD) Non-Af Amer 68 mL/min >60 [facility] Comment on above: Non- GFR Calc Haptoglobin 96 mg/dL 33-346 [facility] Comment on above: Performed at: - [address] [id number] Director: Karl Kee PhD, Phone: [phone] Vitamin D 25-Hydroxy 64.2 ng/mL [facility] Comment on above: Vitamin D 25(OH) Sta tus Range Deficiency <20 ng/mL (50nmol/L) Insufficiency 20 - 30 ng/mL (50 - 75 nmol/L) Sufficiency 30 - 100 ng/mL (75 - 250 nmol/L) Toxicity >100 ng/mL (>250 nmol/L) Platelets bldOrdered By: Yana Ziegler on 04-25-2023 Platelets (Bld) [#/Vol] 227 10*3/uL 150-450 [facility] Protein Test strip Ql (U)Ord ered By: Elder Oswald on 04-25-2023 Protein Ql (U) Negative Negative [facility] Serum or plasma albumin rikki urement (mass/volume)Ordered By: Avril Ziegler on 04-25-2023 Albumin [Mass/Vol] 3.9 g/dL 3.2-5.0 [facility] Serum or plasma albumin/glob ulin mass ratioOrdered By: Avril Ziegler on 04-25-2023 Albumin/Globulin [Mass ratio] 1.0 {ratio} 0.9-2.4 [facility] Serum or plasma calcium rikki urement (mass/volume)Ordered By: Avril Ziegler on 04-25-2023 Calcium [Mass/Vol] 9.3 mg/dL 8.5-10.1 [facility] Serum or plasma cholesterol in HDL measurement (mass/volume)Ordered By: Avril Ziegler on 04-25-2023 Cholesterol in HDL [Mass/Vol] 64 mg/dL >40 [facility] Comment on above: The drugs N-Acetylcy steine and Metamizole may falsely depress this assay. Reference Range HDL <40 mg/dL Low HDL Cholesterol HDL >or= 60 mg/dL High HDL Cholesterol Serum or plasma cholesterol in VLDL measurement (mass/volume)Ordered By: Avril Ziegler on 04-25-2023 Cholesterol in VLDL [Mass/Vol] 16 mg/dL 5-40 [facility] Serum or plasma creatinine m easurement (mass/volume)Ordered By: Avril Ziegler on 04-25-2023 Creatinine [Mass/Vol] 0.90 mg/dL 0.55-1.02 [facility] Comment on above: The validity of the calculated GFR & GFRAA in patients over 70 years has not been determined. Clinical correlation is essential. Serum or plasma low density lipoprotein (LDL) cholesterol measurement (mass/volume)Ordered By: Avril Ziegler on 04-25-2023 Cholesterol in LDL [Mass/Vol] 109 mg/dL 0-130 [facility] Serum or plasma non-glucuron idated bilirubin measurement (mass/volume)Ordered By: Avril Ziegler on 04-25-2023 Bilirubin.indirect [Mass/Vol] 1.60 mg/dL 0.00-1.00 [facility] Serum or plasma urea nitroge n measurement (mass/volume)Ordered By: Avril Ziegler on 04-25-2023 Urea nitrogen [Mass/Vol] 9 mg/dL 7-18 [facility] Squamous epithelial cells de tection in urine sediment by light microscopyOrdered By: Elder Oswald on 04-25-2023 Epithelial cells.squamous LM Ql (Urine sed) 0 SEEN /hpf 5-10 [facility] Thin prep Papanicolaou smear with manual screeningOrdered By: Avril Ziegler on 04-25-2023 Thin prep Papanicolaou smear with manual screening 22 U/L 15-37 [facility] Thin prep Papanicolaou smear with manual screening 4 5-15 [facility] Urine blood detectionOrdered By: Elder Oswald on 04-25-2023 RBC Ql (U) Negative Negative [facility] RBC Ql (U) 0 SEEN /hpf 0-5 [facility] Urine clarityOrdered By: Tray Oswald on 04-25-2023 Clarity (U) Clear Clear [facility] Urine color determinationOrd ered By: Elder Oswald on 04-25-2023 Color (U) Yellow Yellow [facility] Urine glucose detectionOrder ed By: Elder Oswald on 04-25-2023 Glucose Ql (U) Normal mg/dl Normal [facility] Urine leukocyte esterase det ection by dipstickOrdered By: Elder Oswald on 04-25-2023 Leukocyte esterase Test strip Ql (U) Negative Negative [facility] Urine pHOrdered By: Elder singer on 04-25-2023 pH (U) 8.0 [pH] 5.0 - 8.0 [facility] Urine sediment bacteria coun t by microscopy (number/high power field)Ordered By: Elder Oswald on 04-25-2023 Bacteria LM.HPF (Urine sed) [#/Area] 0 /[HPF] None Seen [facility] Urine specific gravity measu rementOrdered By: Elder Oswald on 04-25-2023 Specific gravity (U) [Rel density] 1.010 1.002-1.030 [facility] Urobilinogen Auto test strip Ql (U)Ordered By: Elder Oswald on 04-25-2023 Urobilinogen Ql (U) Normal mg/dl Normal [facility] Vital Signs Date Time Vital Sign Value Performing Clinician Facility 06-28-2025 10:02-0400 Body height 160.[address] Avril Ziegler MD Work Phone: [facility] 06-28-2025 10:02-0400 Body mass index (BMI) [Ratio] 26.2 kg/m2 Dr. Avril Ziegler MD Work Phone: [facility] 06-28-2025 10:02-0400 Body temperature 97.8 [degF] Dr. Avril Ziegler MD Work Phone: [facility] 06-28-2025 10:02-0400 Body weight 67.[address] Avril Ziegler MD Work Phone: [facility] 06-28-2025 10:02-0400 Diastolic blood pressure 99 mm[Hg] Dr. Avril Ziegler MD Work Phone: [facility] 06-28-2025 10:02-0400 Heart rate 81 /min Dr. Avril Ziegler MD Work Phone: [facility] 06-28-2025 10:02-0400 Respiratory rate 16 /min Dr. Avril Ziegler MD Work Phone: [facility] 06-28-2025 10:02-0400 SaO2% (BldA) [Mass fraction] 96 % Dr. Avril Ziegler MD Work Phone: [facility] 06-28-2025 10:02-0400 Systolic blood pressure 152 mm[Hg] Dr. Avril Ziegler MD Work Phone: [facility] 05-25-2025 08:04-0400 Body height 160.[address] Avril Ziegler MD Work Phone: [facility] 05-25-2025 08:04-0400 Body mass index (BMI) [Ratio] 26.2 kg/m2 Dr. Avril Ziegler MD Work Phone: [facility] 05-25-2025 08:04-0400 Body temperature 97.8 [degF] Dr. Avril Ziegler MD Work Phone: [facility] 05-25-2025 08:04-0400 Body weight 67.[address] Avril Ziegler MD Work Phone: [facility] 05-25-2025 08:04-0400 Diastolic blood pressure 95 mm[Hg] Dr. Avril Ziegler MD Work Phone: [facility] 05-25-2025 08:04-0400 Heart rate 73 /min Dr. Avril Ziegler MD Work Phone: [facility] 05-25-2025 08:04-0400 Respiratory rate 16 /min Dr. Avril Ziegler MD Work Phone: [facility] 05-25-2025 08:04-0400 SaO2% (BldA) [Mass fraction] 98 % Dr. Avril Ziegler MD Work Phone: [facility] 05-25-2025 08:04-0400 Systolic blood pressure 160 mm[Hg] Dr. Avril Ziegler MD Work Phone: [facility] 05-18-2025 10:39-0400 Body height 161.3 cm Rosita Plotts SHELL SIEVE OPERATOR.CNM Work Phone: [facility] 05-18-2025 10:39-0400 Body mass index (BMI) [Ratio] 26.05 kg/m2 Rosita Plotts SHELL SIEVE OPERATOR.CNM Work Phone: [facility] 05-18-2025 10:39-0400 Body weight 67.77 kg Rosita Plotts SHELL SIEVE OPERATOR.CNM Work Phone: [facility] 05-18-2025 10:39-0400 Diastolic blood pressure 80 mm[Hg] Rosita Plotts SHELL SIEVE OPERATOR.CNM Work Phone: [facility] 05-18-2025 10:39-0400 Systolic blood pressure 118 mm[Hg] Rosita Plotts SHELL SIEVE OPERATOR.CNM Work Phone: [facility] 06-28-2024 08:00-0400 Diastolic blood pressure 110 mm[Hg] Cesar Golias PT Work Phone: [facility] 06-28-2024 08:00-0400 Heart rate 76 /min Cesar Golias PT Work Phone: [facility] 06-28-2024 08:00-0400 Systolic blood pressure 155 mm[Hg] Cesar Golias PT Work Phone: [facility] 05-25-2024 09:18-0400 Diastolic blood pressure 85 mm[Hg] Supriya Podlogar SHELL SIEVE OPERATOR.MOTEL FRONT DESK ATTENDANT Work Phone: [facility] Comment on above: JOSEE BP 05-25-2024 09:18-0400 Heart rate 70 /min Supriya Podlogar SHELL SIEVE OPERATOR.MOTEL FRONT DESK ATTENDANT Work Phone: [facility] 05-25-2024 09:18-0400 Systolic blood pressure 170 mm[Hg] Supriya Podlogar SHELL SIEVE OPERATOR.MOTEL FRONT DESK ATTENDANT Work Phone: [facility] Comment on above: JOSEE BP 05-25-2024 08:35-0400 Body mass index (BMI) [Ratio] 25.26 kg/m2 Supriya Podlogar SHELL SIEVE OPERATOR.MOTEL FRONT DESK ATTENDANT Work Phone: [facility] 05-25-2024 08:35-0400 Body weight 65.7 kg Supriya Podlogar SHELL SIEVE OPERATOR.MOTEL FRONT DESK ATTENDANT Work Phone: [facility] 05-25-2024 08:35-0400 Respiratory rate 18 /min Supriya Podlogar SHELL SIEVE OPERATOR.MOTEL FRONT DESK ATTENDANT Work Phone: [facility] 05-25-2024 08:35-0400 SaO2% (BldA) [Mass fraction] 98 % Supriya Podlogar SHELL SIEVE OPERATOR.MOTEL FRONT DESK ATTENDANT Work Phone: [facility] 05-13-2024 10:04-0400 Body height 161.3 cm Rosita Plotts SHELL SIEVE OPERATOR.CNM Work Phone: [facility] 05-13-2024 10:04-0400 Body mass index (BMI) [Ratio] 25.11 kg/m2 Rosita Klarissats SHELL SIEVE OPERATOR.CNM Work Phone: [facility] 05-13-2024 10:04-0400 Body weight 65.32 kg Rosita Cyrts SHELL SIEVE OPERATOR.CNM Work Phone: [facility] 05-13-2024 10:04-0400 Diastolic blood pressure 88 mm[Hg] Rosita Plotts SHELL SIEVE OPERATOR.CNM Work Phone: [facility] 05-13-2024 10:04-0400 Systolic blood pressure 138 mm[Hg] Rosita Cyrts SHELL SIEVE OPERATOR.CNM Work Phone: [facility] 04-16-2023 12:59-0400 Body height 160.[address] Avril Ziegler Work Phone: [facility] 04-16-2023 12:59-0400 Body mass index (BMI) [Ratio] 24.6 kg/m2 Dr. Avril Ziegler Work Phone: [facility] 04-16-2023 12:59-0400 Body temperature 98.3 [degF] Dr. Avril Ziegler Work Phone: [facility] 04-16-2023 12:59-0400 Body weight 63.[address] Avril Ziegler Work Phone: [facility] 04-16-2023 12:59-0400 Diastolic blood pressure 92 mm[Hg] Dr. Avril Ziegler Work Phone: [facility] 04-16-2023 12:59-0400 Heart rate 84 /min Dr. Avril Ziegler Work Phone: [facility] 04-16-2023 12:59-0400 Respiratory rate 16 /min Dr. Avril Ziegler Work Phone: [facility] 04-16-2023 12:59-0400 SaO2% (BldA) [Mass fraction] 98 % Dr. Avril Ziegler Work Phone: [facility] 04-16-2023 12:59-0400 Systolic blood pressure 168 mm[Hg] Dr. Avril Ziegler Work Phone: [facility] Encounters Encounter Date Encounter Type Care Provider Facility Start: 08-17-2025 ambulatory Avril Ziegler Facility :[facility] Start: 08-01-2025 ambulatory Avril Ziegler Facility :[facility] Start: 06-28-2025 End: 06-28-[address] Avril Ziegler MD -[facility] Work Phone: Start: 06-28-2025 End: 06-28-[address] Avril Ziegler MD Work Phone: -[facility] Start: 05-26-2025 ambulatory ROSITA RESENDIZ Sharan y:[place] Start: 05-26-2025 End: 05-26-2025 Subsequent hospital visit by physician Screen Mammo [facility] Comment on above: Encounter for screen ing mammogram for breast cancer [Z12.31] Start: 05-25-2025 Encounter for genera l adult medical examination without abnormal findings Avril Ziegler [facility] Start: 05-25-2025 End: 05-25-[address] Avril Ziegler MD -[facility] Work Phone: Start: 05-25-2025 End: 05-25-[address] Avril Ziegler MD [facility] Start: 05-25-2025 End: 05-25-[address] Avril Ziegler MD Work Phone: -[facility] Start: 05-18-2025 End: 05-18-2025 Patient encounter procedure Rosita Klarissagustavo SHELL SIEVE OPERATOR.CNM Work Phone: OB/Gynecology Comment on above: Encounter for gyneco logical examination (general) (routine) without abnormal findings (Primary Dx); Encounter for screening mammogram for breast cancer; Dense breast tissue; Post-menopausal; Vaginal dryness, menopausal Start: 05-18-2025 End: 05-18-2025 Patient encounter status Rosita Resendiz SHELL SIEVE OPERATOR.CNM Work Phone: [facility] Start: 05-18-2025 End: 05-18-2025 ambulatory ROSITA RESENDIZ Facility:[place] Start: 05-18-2025 Encounter for gynecological examination (general) (routine) without abnormal findings ROSITA RESENDIZ [facility] Start: 10-20-2024 End: 10-20-2024 ambulatory NEETA RAMSEY Facility:[facility] Start: 09-03-2024 End: 09-03-2024 ambulatory Sociercise PT Work Phone: [facility] Comment on above: Right groin pain (Pr imary Dx); Acute back pain with sciatica, right Start: 07-22-2024 End: 07-22-2024 ambulatory Pinky Darrenisaakba SUPERVISOR DIAGNOSTIC Work Phone: [facility] Comment on above: Right groin pain (Pr imary Dx); Acute back pain with sciatica, right Start: 07-08-2024 End: 07-08-2024 ambulatory Pinky Kashuba SUPERVISOR DIAGNOSTIC Work Phone: [facility] Comment on above: Right groin pain (Pr imary Dx); Acute back pain with sciatica, right Start: 06-28-2024 End: 06-28-2024 ambulatory Cesar Golmorris PT Work Phone: [facility] Comment on above: Acute back pain with sciatica, right (Primary Dx); Right groin pain; Right-sided low back pain with right-sided sciatica, unspecified chronicity Start: 05-26-2024 End: 06-01-2024 Telephone encounter Supriya Spain APRN.CNP Work Phone: [facility] Comment on above: Results Start: 05-25-2024 End: 05-25-2024 Patient encounter procedure Supriya Spain APRN.CNP Work Phone: [facility] Comment on above: Right groin pain (Pr imary Dx); Right-sided low back pain with right-sided sciatica, unspecified chronicity; Elevated BP without diagnosis of hypertension Start: 05-17-2024 End: 05-17-2024 Subsequent hospital visit by physician [facility] Work Phone: Radiology Comment on above: Abdominal pain, RLQ [R10.31] Start: 05-13-2024 End: 05-13-2024 Patient encounter procedure Rosita Resendiz APRN.CNJas Work Phone: OB/Gynecology Comment on above: Encounter for gyneco logical examination (general) (routine) without abnormal findings (Primary Dx); Encounter for screening for human papillomavirus (HPV); Pap smear for cervical cancer screening; Encounter for screening mammogram for breast cancer; Dense breast tissue; Abdominal pain, RLQ; Pelvic pain in female Start: 05-13-2024 End: 05-13-2024 Patient encounter status Rosita Resendiz APRN.CNJas Work Phone: [facility] Start: 12-30-2023 End: 12-30-2023 ambulatory [facility] Work Phone: Start: 12-30-2023 End: 12-30-2023 Patient encounter procedure [facility]-Radiology, [facility] Work Phone: Start: 09-30-2023 End: 09-30-2023 Patient encounter procedure [facility], [facility] Work Phone: Start: 05-13-2023 End: 05-13-[address] Avril Ziegler Work Phone: [facility] Work Phone: Start: 05-13-2023 End: 05-13-[address] Avril Ziegler Work Phone: [facility]-Ultrasound, [facility] Work Phone: Start: 04-25-2023 End: 04-25-[address] Avril Ziegler Work Phone: [facility] Work Phone: Start: 04-25-2023 End: 04-25-[address] Avril Ziegler Work Phone: [facility]-Laboratory Work Phone: Start: 04-16-[address] [place] Ziegler Work Phone: [facility] Start: 04-16-2023 End: 04-16-2023 Encounter for general adult medical examination without abnormal findings Dr. Avril Ziegler Work Phone: [facility] Start: 04-16-2023 End: 04-16-[address] Avril Ziegler Work Phone: [facility] Work Phone: Start: 07-05-2022 End: 07-05-2022 ambulatory [facility] Work Phone: Start: 07-05-2022 End: 07-05-2022 Patient encounter procedure [facility]-Radiology, [facility] Start: 05-23-2022 End: 05-23-2022 Patient encounter procedure [facility]-Outpatient Breast Imaging Procedures Date Procedure Procedure Detail Performing Clinician Start: 12-30-2023 X-ray of both feet Start: 09-30-2023 X-ray of lumbosacral spine Start: 05-13-[address] Avril doyle Work Phone: Start: 04-25-[address] Avril Ziegler Work Phone: Start: 07-05-2022 X-ray of cervical spine Start: 05-23-2022 Screening mammography H/O: section History of C-sectio n Plan of Treatment Date Care Activity Detail Author Start: 05-13-2029 Screening for malign ant neoplasm of cervix Cervical Cancer Screening [facility] Start: 05-18-2026 End: 05-18-2026 Patient encounter procedure 05/18/2026 8:15 AM EDT Office Visit OB/Gynecology [address] [place] [address] Rosita Resendiz APRN.CNM [address] [place] [address] annual OB/Gynecology Comment on above: annual Start: 05-26-2025 End: 05-26-2025 Patient encounter procedure 05/26/2025 7:30 AM EDT Appointment Mammogram [address] [address] : Encounter for gynecological examination (general) (routine) without abnormal findings [Z01.419]; Encounter for screening mammogram for breast cancer [Z12.31]; Dense breast tissue [R92.30] Mammogram Comment on above: : Encounter for gyne cological examination (general) (routine) without abnormal findings [Z01.419]; Encounter for screening mammogram for breast cancer [Z12.31]; Dense breast tissue [R92.30] Start: 05-25-2025 Measurement of C-reactive protein using high sensitivity technique [facility] Start: 05-23-2025 Influenza vaccination Influenza Vacc ine (#1) [facility] Start: 05-13-2025 End: 05-13-2025 Patient encounter procedure 05/13/2025 10:45 AM EDT Office Visit OB/Gynecology [address] [place] [address] Rosita Resendiz APRN.CNM [address] [place] [address] Annual OB/Gynecology Comment on above: Annual Start: 02-01-2025 Screening for malign ant neoplasm of colon [facility] Start: 08-06-2024 End: 08-06-2024 ambulatory 08/06/2024 2:00 PM EST OT/PT/Speech Visit [facility] [address] [place] [address] Cesar Mao, PT [address] [place] [address] R10.31 (ICD-10-CM) - Right groin pain [facility] Comment on above: R10.31 (ICD-10-CM) - Right groin pain Start: 07-30-2024 End: 07-30-2024 ambulatory 07/30/2024 2:00 PM EST OT/PT/Speech Visit [facility] [address] [place] [address] Cesar Mao, PT [address] [place] [address] R10.31 (ICD-10-CM) - Right groin pain [facility] Comment on above: R10.31 (ICD-10-CM) - Right groin pain Start: 07-22-2024 End: 07-22-2024 ambulatory 07/22/2024 8:00 AM EDT OT/PT/Speech Visit [facility] [address] [place] [address] Pinky Ladd, SUPERVISOR DIAGNOSTIC [address] [place] [address] R10.31 (ICD-10-CM) - Right groin pain [facility] Comment on above: R10.31 (ICD-10-CM) - Right groin pain Start: 07-21-2024 End: 07-21-2024 Patient encounter procedure 07/21/2024 10:10 AM EDT Appointment Mammogram [address] [place] [address] Encounter for gynecological examination (general) (routine) without abnormal findings [Z01.419]; Encounter for screening mammogram for breast cancer [Z12.31]; Dense breast tissue [R92.30] Mammogram Comment on above: Encounter for gyneco logical examination (general) (routine) without abnormal findings [Z01.419]; Encounter for screening mammogram for breast cancer [Z12.31]; Dense breast tissue [R92.30] Start: 07-15-2024 End: 07-15-2024 ambulatory 07/15/2024 8:00 AM EDT OT/PT/Speech Visit [facility] [address] [address] Pinky Ladd, SUPERVISOR DIAGNOSTIC [address], [place] [address] R10.31 (ICD-10-CM) - Right groin pain [facility] Comment on above: R10.31 (ICD-10-CM) - Right groin pain Start: 07-08-2024 End: 07-08-2024 ambulatory 07/08/2024 8:00 AM EDT OT/PT/Speech Visit [facility] [address] [address] Pinky Ladd, SUPERVISOR DIAGNOSTIC [address], [place] [address] R10.31 (ICD-10-CM) - Right groin pain [facility] Comment on above: R10.31 (ICD-10-CM) - Right groin pain Start: 06-30-2024 End: 06-30-2024 Patient encounter procedure 06/30/2024 12:20 PM EDT Office Visit [facility] [place] [address] [place] [address] PodSupriya leon APRN.MOTEL FRONT DESK ATTENDANT [address] [facility] [place] [address] Establish Care & BP check; OK PER OFFICE [facility]MLPN [facility] [place] Comment on above: Establish Care & BP check; OK PER OFFICE MMLPN Start: 06-15-2024 End: 06-15-2024 ambulatory 06/15/2024 10:00 AM EDT OT/PT/Speech Visit [facility] [address] [place] [address] Cesar Mao, PT [address] [place] [address] Right groin pain [R10.31]; Right-sided low back pain with right-sided sciatica, unspecified chronicity [M54.41] [place] [facility] Physical Therapy Comment on above: Right groin pain [R1 0.31]; Right-sided low back pain with right-sided sciatica, unspecified chronicity [M54.41] Start: 05-25-2024 End: 05-25-2024 Patient encounter procedure 05/25/2024 8:40 AM EDT Office Visit [facility] [place] [address] [facility] [place] [address] PodlogarSupriya APRN.MOTEL FRONT DESK ATTENDANT [address] [place] [address] Follow Up (Right Side Abdominal Pain) [facility] [place] Comment on above: Follow Up (Right Kamlesh e Abdominal Pain) Start: 05-23-2024 Covid-19 Vaccine ( season) Covid-19 Vaccine ( season) [facility] Start: 05-23-2024 Covid-19 Vaccine ( season) Covid-19 Vaccine ( season) [facility] Start: 05-23-2024 Influenza vaccination Influenza Vacc ine (#1) [facility] Start: 05-17-2024 End: 05-17-2024 Patient encounter procedure 05/17/2024 2:30 PM EDT Appointment Radiology [address] [place] [address] Abdominal pain, RLQ [R10.31]; Pelvic pain in female [R10.2] Radiology Comment on above: Abdominal pain, RLQ [R10.31]; Pelvic pain in female [R10.2] Start: 05-23-2023 Covid-19 Vaccine ( season) Covid-19 Vaccine ( season) [facility] Start: 2017 Pneumococcal Vaccine : 50+ (1 of 1 - PCV) Pneumococcal Vaccine: 50+ (1 of 1 - PCV) [facility] Start: 2017 Shingrix Vaccine (1 of 2) Shingrix Vaccine (1 of 2) [facility] Start: 01-13-2012 Diabetes Screening Diabetes Screenin g [facility] Start: 01-13-2012 Lipid panel Lipid Screening [facility] Start: 01-13-2012 Screening for malign ant neoplasm of colon [facility] Start: 2007 Screening for malign ant neoplasm of breast Mammogram Screening [facility] Start: 01-13-1988 Screening for malign ant neoplasm of cervix Cervical Cancer Screening [facility] Start: 1986 Hepatitis B Vaccine (1 of 3 - 19+ 3-dose series) Hepatitis B Vaccine (1 of 3 - 19+ 3-dose series) [facility] Start: 1986 Urine microalbumin profile DTaP,Tdap,Td Vaccine (1 - Tdap) [facility] Start: 1985 Anxiety Screening Anxiety Screening [facility] Start: 1985 Depression Screening Depression Scre ening [facility] Start: 1985 Hepatitis C screening Hepatitis C Sc reening [facility] Start: 1985 HIV screening HIV Screening [facility] Comprehensive metabo lic 2000 panel - Serum or Plasma [facility] End: 06-12-2025 DBT Breast - bilateral screening YULY SCREENING [facility] Radiology Routine Encounter for gynecological examination (general) (routine) without abnormal findings Encounter for screening mammogram for breast cancer Dense breast tissue 1 Occurrences starting 05/13/2024 until 06/12/2025 [facility] Work Phone: Comment on above: 1 Occurrences starti ng 05/13/2024 until 06/12/2025 End: 06-17-2026 DBT Breast - bilateral screening YULY SCREENING [facility] Radiology Routine Encounter for screening mammogram for breast cancer 1 Occurrences starting 05/18/2025 until 06/17/2026 [facility] Work Phone: Comment on above: 1 Occurrences starti ng 05/18/2025 until 06/17/2026 DBT Breast - bilater al screening YULY SCREENING W [facility] Radiology Routine Encounter for screening mammogram for breast cancer 05/26/2025 7:52 AM EDT [facility] Work Phone: PAP TEST PAP TEST Lab Kalpesh lima Encounter for gynecological examination (general) (routine) without abnormal findings Encounter for screening for human papillomavirus (HPV) Pap smear for cervical cancer screening 05/13/2024 10:40 AM EDT [facility] Path report.final Dx Spec [facility] US Groin US GROIN UNL VAS LAB Vascular Lab Routine Right groin pain 05/25/2024 11:03 AM EDT [facility] Work Phone: End: 06-13-2025 US Pelvis transvaginal US FEMALE PELVIS TRANSVAG Radiology Routine Abdominal pain, RLQ Pelvic pain in female 1 Occurrences starting 05/13/2024 until 06/13/2025 [facility] Comment on above: 1 Occurrences starti ng 05/13/2024 until 06/13/2025 US Pelvis transvaginal US FEMALE PELVIS TRANSVAG Radiology Routine Abdominal pain, RLQ Pelvic pain in female 05/17/2024 3:06 PM EDT [facility] Work Phone: [facility] Payers Date Payer Category Payer Unknown [id number] 2024 Self-pay [id number] 2024 Private Health Insurance MMO [employer] PPO [id number] 2021 Unknown [employer] PPO [id number] 2021-Present [phone] [address] [place] [address] PPO [id number] 2021 Unknown [id number] 2011 Unknown [id number] Unknown [id number] Unknown [id number] Unknown [id number] Unknown [id number] Unknown [id number] Social History Date Type Detail Facility Start: 01-14-2022 End: 06-04-2023 Tobacco smoking status NHIS Unknown if ever smoked [facility] Start: 1965 Sex Assigned At Female [facility] Start: 02-26-2024 End: 05-13-2024 Tobacco smoking status NHIS Never smoked tobacco [facility] Start: 05-13-2024 Tobacco use and exposure Smokeless tobacco non-user [facility] Start: 05-13-2024 End: 08-27-2025 Alcoholic beverage intake Current drinker of alcohol (finding) [facility] Start: 05-13-2024 End: 05-24-2024 History of Social function [facility] Start: 05-13-2024 End: 05-24-2024 Tobacco use panel [facility] Start: 08-23-2012 National Score (1-10 0), lower number is lower risk 67 [facility] Start: 05-13-2024 Alcohol Comment occasionally [facility] Start: 1965 Sex assigned at Not on file [facility] Has the [employer], [employer] threatened to shut off services in your home in past 12Mo No [facility] Are you now , , , , never or living with a partner? [facility] How often to you hav e a drink containing alcohol? 2-4 times a month [facility] How many standard drinks containing alcohol do you have on a typical day? 1 or 2 [facility] How often do you hav e 6 or more drinks on 1 occasion? Never [facility] Do you feel stress - tense, restless, nervous, or anxious, or unable to sleep at night because your mind is troubled all the time - these days [OSQ] Only a little [facility] (I/We) worried wheth er (my/our) food would run out before (I/we) got money to buy more. Never true [facility] Clinical Notes 04-25-2023 to 05-26-2025 Flora Dupree Mammo Tech - 05/26/2025 7:30 AM EDT Note Date & Type Note Facility 05-26-2025 History of Present illness Narrative Radiology Service Progress Note PATIENT NAME: Amina Bella DATE OF SERVICE: May 26, 2025 TIME: 7:32 AM PATIENT IDENTITY VERIFICATION COMPLETED USING TWO (2) IDENTIFIERS: Name and Date of confirmed by patient verbally. FALL SCREENING: Has the patient had 2 falls in the last year or 1 fall with injury or currently using an Ambulatory Assistive Device (Walker, Cane, Wheelchair, Crutches, etc.)? No PATIENT GENDER DATA: Assigned female at . status: : No status: NO. PATIENT RELEVANT IMPLANT DATA REVIEWED: Not Applicable PATIENT PRESENTS WITH AN IMPLANTABLE OR ATTACHED GORE SEAMER: No RADIOLOGY DEPARTMENT: Mammography PERIPHERAL IV DATA: Not applicable SIGNED BY: Michelle Florian May 26, 2025 7:32 AM documented in this encounter [facility] 05-26-2025 Note HNO ID: [id number] Author: FLORA DUPREE Mammo Tech Service: ? Author Type: Rope Making Machine Operator Type: Progress Notes Filed: 05/26/2025 07:32 Note Text: Radiology Service Progress Note PATIENT NAME: Amina Bella DATE OF SERVICE: May 26, 2025 TIME: 7:32 AM PATIENT IDENTITY VERIFICATION COMPLETED USING TWO (2) IDENTIFIERS: Name and Date of confirmed by patient verbally. FALL SCREENING: Has the patient had 2 falls in the last year or 1 fall with injury or currently using an Ambulatory Assistive Device (Walker, Cane, Wheelchair, Crutches, etc.)? No PATIENT GENDER DATA: Assigned female at . status: : No status: NO. PATIENT RELEVANT IMPLANT DATA REVIEWED: Not Applicable PATIENT PRESENTS WITH AN IMPLANTABLE OR ATTACHED GORE SEAMER: No RADIOLOGY DEPARTMENT: Mammography PERIPHERAL IV DATA: Not applicable SIGNED BY: Michelle Florian May 26, 2025 7:32 AM [facility] 05-25-2025 Evaluation note Diagnosis Onset Date Resolution Elevated bilirubin acute Septem 2024 7:57am Encounter for wellness examination in adult acute May 252024 7:57am [facility] Work Phone: [phone]) 304-220308-27-2025 Instructions* Patient Instructions* Rosita Resendiz APRN.[facility]ELE[facility] - 05/18/2025 10:55 AM EDT Non-Hormonal Vaginal Lubricants & Vaginal Moisturizers Symptoms of vaginal dryness can be managed by the regular use of vaginal moisturizing agents with supplemental use of vaginal lubricants for sexual intercourse. . Use of vaginal moisturizers and lubricants alone is effective treatment for vaginal dryness or dyspareunia (pain with intercourse) in some patients. Vaginal lubrications- Vaginal lubricants are designed to reduce friction and discomfort from dryness during sexual intercourse. The lubricant is applied inside the vagina and/or on the partner's penis or fingers just before sex. Coconut, [place], Avocado or Peanut oil- natural oils are not recommended for use with latex condoms or diaphragms as they can damage the latex Astroglide- has both water and silicone based KY Jelly- water based Just like me - Pure Romance Almost Naked Good Clean Love - Bio Nude ultra-sensitive Pjur- silicone ID Millennium- silicone Vaginal Moisturizers- Vaginal moisturizers are intended for use routinely, typically two or three days per week, not just during sexual activity. These products are typically bioadhesives. Many moisturizer products are available in pharmacies and online. Restore- [employer] Replens Madhav Feminease Moist Again K-Y Liquid beads Products to assist with maintaining vaginal ph IsoFresh [email or web address].Lamsa BiopHresh Rephresh [facility]25 NoteHNO ID: [id number] Author: ROSITA RESENDIZ APRN.CNM Service: ? Author Type: Proof Load Mechanic Type: Progress Notes Filed: 05/18/2025 11:22 Note Text: Inventory Administrator offered: Patient declines. Amina is a 60 year old who presents for an annual gynecologic exam with complaints, burning after intercourse. Using coconut oil for lubricant. Postmenopausal: Yes since age 55 HRT use: No. Still get period: No Menopause symptoms: Hot flashes; Vaginal dryness Time with current partner: 34 yrs Number of lifetime partners: 1 control frequency: Never HPV vaccine: No; Last pap smear: 05/13/2024, normal History of abnormal pap: No, all prior PAP smears have been normal Bothersome pelvic pain: No Last mammogram: 2022 normal History of abnormal mammogram: No OB History Gravida4 Para3 Term3 Preterm0 AB1 Living3 SAB0 IAB0 Ectopic0 Multiple0 Live Births3 Comment: Menarche at age 13. First full term at age 29. Is premenopausal. [employer] History LMP: 12/21/2021, Postmenopausal Age at Menarche: 13 Age at First : Age at Menopause: [employer] History Comments: Sexual Activity: Yes; Male; postmenopausal Contraception: Other PAST MEDICAL HISTORY Diagnosis Date Vasculitis 2013 PAST SURGICAL HISTORY Procedure Laterality Date ADENOIDECTOMY HX 09/22/1977 APPENDECTOMY HX 09/22/1980 DELIVERY ONLY 1993 DELIVERY ONLY 2007 LAPS SURG CHOLECYSTECTOMY W/CHOLANGIOGRAPHY 12/04/2015 normal C FAMILY HISTORY Problem Relation Age of Onset other (No family hx of breast cancer[Other]) Unknown Cancer Paternal Grandfather stomach Hypertension Father Heart Mother Heart Father Heart Maternal Grandmother SOCIAL HISTORY Social History Tobacco Use Smoking status: Never Smokeless tobacco: Never Vaping Use Vaping status: Never Used Substance Use Topics Alcohol use: Yes Comment: occasionally Drug use: Never REVIEW OF SYSTEMS Abdomen: No abdominal pain, nausea, vomiting, diarrhea, or constipation. No bloating, early satiety, indigestion, or increased flatulence. Bladder: No dysuria, gross hematuria, urinary frequency, urinary urgency, or incontinence Breast: No breast lumps, nipple d/c, overlying skin changes, redness or skin retraction Allergies and current medication updated:Yes SENSITIVE EXAM: The sensitive examination was discussed with the Patient or Patient's Authorized Rabbit Fancier. As applicable, any other physician, advance practice provider, medical student, or other health professional student that will be observing or involved in the sensitive examination for educational or training purposes was discussed with the Patient or Authorized Rabbit Fancier. The Patient or Authorized Rabbit Fancier has agreed to proceed with the sensitive examination. (Sensitive examination includes inspection and/or palpation of the breasts, pelvis, prostate and anorectal regions). EXAM: BP 118/80 Ht 5' 3.5 (1.61m) Wt 149 lb 6.4 oz (67.8kg) LMP 12/21/2021 BMI 26.05 kg/(m2). GENERAL: pleasant, female in no apparent distress HEENT: Normocephalic and atraumatic NECK: Supple and full range of motion DERMATOLOGY: Normal and without lesions BREAST: soft, non-tender, symmetric, no dominant mass, normal nipple-areolar complex, no lymphadenopathy, and no nipple discharge CHEST: Normal inspiratory effort ABDOMEN: soft, non-tender, and no masses PELVIC: external genitalia normal, normal Bartholin's glands, urethra, Adams's glands, no vulvar lesions, no cervical lesions, good vaginal support, physiologic discharge present, normal appearing perineal body and perianal region, atrophic changes BIMANUAL: uterus normal size, shape and consistency, no adnexal masses, non-tender, and no cervical motion tenderness RECTOVAGINAL: deferred. NEURO: alert and oriented x3,exam grossly non-focal EXTREMITIES: normal ASSESSMENT/PLAN: 1) Health maintenance: Pap/HPV up to date. Mammogram ordered Nutrition, exercise and routine health maintenance exams reviewed. Colon cancer screening: up to date with screening TSH/lipids/glucose: followed by PCP 2) Follow up one year or sooner as needed Rosita Resendiz APRN.[facility]08-27-2025 History of Present illness Narrative* Rosita Resendiz APRN.[facility] - 05/18/2025 10:37 AM EDT Inventory Administrator offered: Patient declines. Amina is a 60 year old who presents for an annual gynecologic exam with complaints, burning after intercourse. Using coconut oil for lubricant. Postmenopausal: Yes since age 55 HRT use: No. Still get period: No Menopause symptoms: Hot flashes; Vaginal dryness Time with current partner: 34 yrs Number of lifetime partners: 1 control frequency: Never HPV vaccine: No; Last pap smear: 05/13/2024, normal History of abnormal pap: No, all prior PAP smears have been normal Bothersome pelvic pain: No Last mammogram: 2022 normal History of abnormal mammogram: No OB History Gravida4 Para3 Term3 Preterm0 AB1 Living3 SAB0 IAB0 Ectopic0 Multiple0 Live Births3 Comment: Menarche at age 13. First full term at age 29. Is premenopausal. [employer] History LMP: 12/21/2021, Postmenopausal Age at Menarche: 13 Age at First : Age at Menopause: [employer] History Comments: Sexual Activity: Yes; Male; postmenopausal Contraception: Other PAST MEDICAL HISTORY Diagnosis Date Vasculitis 2013 PAST SURGICAL HISTORY Procedure Laterality Date ADENOIDECTOMY HX 09/22/1977 APPENDECTOMY HX 09/22/1980 DELIVERY ONLY 1994 DELIVERY ONLY 2007 LAPS SURG CHOLECYSTECTOMY W/CHOLANGIOGRAPHY 12/04/2015 normal [facility] FAMILY HISTORY Problem Relation Age of Onset other (No family hx of breast cancer[Other]) Unknown Cancer Paternal Grandfather stomach Hypertension Father Heart Mother Heart Father Heart Maternal Grandmother SOCIAL HISTORY Social History Tobacco Use Smoking status: Never Smokeless tobacco: Never Vaping Use Vaping status: Never Used Substance Use Topics Alcohol use: Yes Comment: occasionally Drug use: Never REVIEW OF SYSTEMS Abdomen: No abdominal pain, nausea, vomiting, diarrhea, or constipation. No bloating, early satiety, indigestion, or increased flatulence. Bladder: No dysuria, gross hematuria, urinary frequency, urinary urgency, or incontinence Breast: No breast lumps, nipple d/c, overlying skin changes, redness or skin retraction Allergies and current medication updated:Yes SENSITIVE EXAM: The sensitive examination was discussed with the Patient or Patient's Authorized Rabbit Fancier. As applicable, any other physician, advance practice provider, medical student, or other health professional student that will be observing or involved in the sensitive examination for educational or training purposes was discussed with the Patient or Authorized Rabbit Fancier. The Patient or Authorized Rabbit Fancier has agreed to proceed with the sensitive examination. (Sensitive examination includes inspection and/or palpation of the breasts, pelvis, prostate and anorectal regions). EXAM: BP 118/80 Ht 5' 3.5 (1.61m) Wt 149 lb 6.4 oz (67.8kg) LMP 12/21/2021 BMI 26.05 kg/(m^2). GENERAL: pleasant, female in no apparent distress HEENT: Normocephalic and atraumatic NECK: Supple and full range of motion DERMATOLOGY: Normal and without lesions BREAST: soft, non-tender, symmetric, no dominant mass, normal nipple-areolar complex, no lymphadenopathy, and no nipple discharge CHEST: Normal inspiratory effort ABDOMEN: soft, non-tender, and no masses PELVIC: external genitalia normal, normal Bartholin's glands, urethra, Adams's glands, no vulvar lesions, no cervical lesions, good vaginal support, physiologic discharge present, normal appearing perineal body and perianal region, atrophic changes BIMANUAL: uterus normal size, shape and consistency, no adnexal masses, non- tender, and no cervicalmotion tenderness RECTOVAGINAL: deferred. NEURO: alert and oriented x3,exam grossly non-focal EXTREMITIES: normal ASSESSMENT/PLAN: 1) Health maintenance: Pap/HPV up to date. Mammogram ordered Nutrition, exercise and routine health maintenance exams reviewed. Colon cancer screening: up to date with screening TSH/lipids/glucose: followed by PCP 2) Follow up one year or sooner as needed Rosita Resendiz APRN.CNM documented [facility] NoteHNO ID: [id number] Author: CESAR MAO PT Service: ? Author Type: Physical Therapist Type: Progress Notes Filed: 09/03/2024 14:37 Note Text: Episode Visit Count: 4 Therapist That Will Accept/Oversee The Plan Of Care: Cesar Mao PT Start of Care Date: 06/28/24 Onset Date: 03/27/24 Patient Identified by Name and Date of : Yes REHABILITATION AND SPORTS THERAPY PHYSICAL THERAPY DISCONTINUANCE OF CARE PLAN OF CARE UPDATE: Assessment: Amina Bella is discontinued from Physical Therapy services due to goal achievement and maximal benefit. and Patient/Clinician mutual decision to discontinue current plan of care.. Patient was seen for 4 visits from Start of Care Date: 06/28/24 to 09/03/2024 and treatment included: Therapeutic exercise, Manual therapy, Self-long term management, Patient/Family/Caregiver Education, and Body mechanics training. Updated: 09/03/24 Goals for Episode of Care: established 06/28/24 Independent in home exercises. - MET Patient will decrease pain to 0/10 at rest and with functional activities to allow patient to improve ambulation, transfers, and standing tolerance for ADLs. - MET Restore pain-free lumbar ROM to WFL to allow for improved tolerance with lifting - MET Stand / Walk without limitations, without pain/symptoms. - Mostly MET Sleep through night without pain/symptoms. - MET Patient will increase strength of core/postural muscles to WFL to allow for improve ability to complete ADLs and exercise. - MET Patient Goals: decrease pain and regain prior functional level. - MET SUBJECTIVE: Overall, pt reports that her condition is minimally improved since starting therapy. Pt reports that she has been compliant with HEP daily and that this is still helpful. She also reports injuring herself while doing yoga a couple of weeks ago. She reports doing a hip flexor stretch to an extreme and this caused an increase in pain in the yoga class. Pt reports that sleeping is much better. She denies any limitations with walking and states that walking is much improved. She reports that she can walk 3-4 miles without symptoms. She reports that transfers are improved and she is able to travel without limitations. She reports that her standing tolerance is improved but with some limitations. She feels confident in her ability to continue HEP. Pain: Pain Pain Level: 2 Pain Location: Low Back/Lumbar Spine - Right, Groin - Right Description: Dull Frequency: Intermittent, Sitting (driving) Post Treatment Pain Post Treatment Pain Level: Better Post Treatment Symptoms: After completing flexion HEP, she reported feeling better and that this is typical for her after completing HEP. PROMIS Scales 09/03/2024 06/28/2024 Higher is Better Phys Func - Score 51 (within normal limits) 44 (mild dysfunction) Phys Func - Percentile 54 27 Self-Eff Symptom - Score 54 (Average) 45 (Average) Self-Eff Symptom - Percentile 66 31 T-scores: mean of general population = 50. 5 points is clinically meaningfully difference Percentiles provide an indication of how the patient's score ranks in relation to the general population. Higher percentile rankings indicate better function/quality of life. 50th percentile is the average of the general population and indicates half of respondents had a worse score. OBJECTIVE MEASURES WITH LEVEL OF FUNCTION: Lumbar Spine AROM Lumbar Flexion: Normal Lumbar Extension: Normal Lumbar R Side-Bend: Normal Lumbar L Side-Bend: Normal Lumbar R Rotation: Normal Lumbar L Rotation: Normal Lumbar Spine AROM Comments: No pain with lumbar AROM LE Flexibility Flexibility: Piriformis Flexibility R Piriformis Flexibility: 58 (pain-free) L Piriformis Flexibility: 59 (pain-free) LE Strength Trunk Strength: Improving Gait Gait Observation: normal TREATMENT: Therapeutic Exercise: 1: B SKTC 3x30 seconds each 2: DKTC 3x30 seconds 3: Entire HEP was thoroughly reviewed and continuation encouraged especially as it relates to flexion movements. She was repeatedly advised to use pain as her guide and to stop any exercise that causes increased pain. 4: Her directional preference was reviewed and she was educated on the functional implications of this as well as how this will impact her independent workouts. 5: Pt had many excellent questions about appropriate exercises at the gym and proper intensity with these. Individual machines were reviewed and recommendations made. 6: Re-assessment results were reviewed with patient and used as rationale for d/c recommendations. 7: Pt verbalized understanding of all instructions and agreed with plan. Skilled Intervention: Patient was educated in proper exercise technique and purpose for exercises. Skilled judgment was used in selection of appropriate interventions. Correct performance of therapeutic exercises was facilitated with verbal and visual cuing. Patient edu (more content not included)...[facility]12-13-2024 History of Present illness Narrative* Cesar Mao, PT - 09/03/2024 2:33 PM EST Images from the original note were not included. Episode Visit Count: 4 Therapist That Will Accept/Oversee The Plan Of Care: Cesar Mao PT Start of Care Date: 06/28/24 Onset Date: 03/27/24 Patient Identified by Name and Date of : Yes REHABILITATION AND SPORTS THERAPY PHYSICAL THERAPY DISCONTINUANCE OF CARE PLAN OF CARE UPDATE: Assessment: Amina Bella is discontinued from Physical Therapy services due to goal achievement and maximal benefit. and Patient/Clinician mutual decision to discontinue current plan of care.. Patient was seen for 4 visits from Start of Care Date: 06/28/24 to 09/03/2024 and treatment included: Therapeutic exercise, Manual therapy, Self-long term management, Patient/Family/Caregiver Education, and Body mechanics training. Updated: 09/03/24 Goals for Episode of Care: established 06/28/24 Independent in home exercises. - MET Patient will decrease pain to 0/10 at rest and with functional activities to allow patient to improve ambulation, transfers, and standing tolerance for ADLs. - MET Restore pain-free lumbar ROM to WFL to allow for improved tolerance with lifting - MET Stand / Walk without limitations, without pain/symptoms. - Mostly MET Sleep through night without pain/symptoms. - MET Patient will increase strength of core/postural muscles to WFL to allow for improve ability to complete ADLs and exercise. - MET Patient Goals: decrease pain and regain prior functional level. - MET SUBJECTIVE: Overall, pt reports that her condition is minimally improved since starting therapy. Ptreports that she has been compliant with HEP daily and that this is still helpful. She also reportsinjuring herself while doing yoga a couple of weeks ago. She reports doing a hip flexor stretch to an extreme and this caused an increase in pain in the yoga class. Pt reports that sleeping is much better. She denies any limitations with walking and states that walking is much improved. She reports that she can walk 3-4 miles without symptoms. She reports that transfers are improved and she is able to travel without limitations. She reports that her standing tolerance is improved but with some limitations. She feels confident in her ability to continue HEP. Pain: Pain Pain Level: 2 Pain Location: Low Back/Lumbar Spine - Right, Groin - Right Description: Dull Frequency: Intermittent, Sitting (driving) Post Treatment Pain Post Treatment Pain Level: Better Post Treatment Symptoms: After completing flexion HEP, she reported feeling better and that this istypical for her after completing HEP. PROMIS Scales 09/03/2024 06/28/2024 Higher is Better Phys Func - Score 51 (within normal limits) 44 (mild dysfunction) Phys Func - Percentile 54 27 Self-Eff Symptom - Score 54 (Average) 45 (Average) Self-Eff Symptom - Percentile 66 31 T-scores: mean of general population = 50. 5 points is clinically meaningfully difference Percentiles provide an indication of how the patient's score ranks in relation to the general population. Higher percentile rankings indicate better function/quality of life. 50th percentile is the average of the general population and indicates half of respondents had a worse score. OBJECTIVE MEASURES WITH LEVEL OF FUNCTION: Lumbar Spine AROM Lumbar Flexion: Normal Lumbar Extension: Normal Lumbar R Side-Bend: Normal Lumbar L Side-Bend: Normal Lumbar R Rotation: Normal Lumbar L Rotation: Normal Lumbar Spine AROM Comments: No pain with lumbar AROM LE Flexibility Flexibility: Piriformis Flexibility R Piriformis Flexibility: 58 (pain-free) L Piriformis Flexibility: 59 (pain-free) LE Strength Trunk Strength: Improving Gait Gait Observation: normal TREATMENT: Therapeutic Exercise: 1: B SKTC 3x30 seconds each 2: DKTC 3x30 seconds 3: Entire HEP was thoroughly reviewed and continuation encouraged especially as it relates to flexion movements. She was repeatedly advised to use pain as her guide and to stop any exercise that causes increased pain. 4: Her directional preference was reviewed and she was educated on the functional implications of this as well as how this will impact her independent workouts. 5: Pt had many excellent questions about appropriate exercises at the gym and proper intensity withthese. Individual machines were reviewed and recommendations made. 6: Re-assessment results were reviewed with patient and used as rationale for d/c recommendations. 7: Pt verbalized understanding of all instructions and agreed with plan. Skilled Intervention: Patient was educated in proper exercise technique and purpose for exercises. Skilled judgment was used in selection of appropriate interventions. Correct performance of therapeutic exercises was facilitated with verbal and visual cuing. Patient education as noted. Billing Therapeutic Exercise Treatment Minutes: 47 Skilled Treatment Time Minutes (timed and untimed codes): 47 Total Session Time (minutes): 47 Session Start Time : 1300 Session Stop Time : 1347 Cesar Mao PT [facility] History of Present illness Narrative* Pinky Ladd PTA - 07/22/2024 8:36 AM EDT Program_ID:[id number] Access Code: [email or web address] URL: [email or web address] Date: 07-22-2024 Prepared By: Cesar Mao Program Notes Exercises - Hooklying Single Knee to Chest Stretch - 3 x daily - 7 x weekly - sets - 3 reps - Supine Double Knee to Chest - 3 x daily - 7 x weekly - sets - 3 reps - Seated Flexion Stretch - 2-3 x daily - 7 x weekly - 2 sets - 10 reps - Supine Lower Trunk Rotation - 2-3 x daily - 7 x weekly - 2 sets - 10 reps - Supine Posterior Pelvic Tilt - 2-3 x daily - 7 x weekly - 2 sets - 10 reps - Supine March with Posterior Pelvic Tilt - 2-3 x daily - 7 x weekly - 2 sets - 10 reps - Bent Knee Fallouts with Alternating Legs - 2-3 x daily - 7 x weekly - 2 sets - 10 reps - Supine Hip Extension on Bench - 1 x daily - 7 x weekly - 2 sets - 10 reps - Standing Anti-Rotation Press with Anchored Resistance - 1 x daily - 7 x weekly - 2 sets - 10 reps - Stir the Pot - 1 x daily - 7 x weekly - 2 sets - 10 reps - Wallisian Ball Hip Lifts - 1 x daily - 7 x weekly - 2 sets - 10 reps * Cesar Mao PT - 07/22/2024 8:06 AM EDT Episode Visit Count: 3 Therapist That Will Accept/Oversee The Plan Of Care: Cesar Mao PT Start of Care Date: 06/28/24 Onset Date: 03/27/24 Patient Identified by Name and Date of : Yes REHABILITATION AND SPORTS THERAPY PHYSICAL THERAPY TREATMENT NOTE ASSESSMENT: Amina Bella tolerated the session with fatigue and expected muscle soreness. Shedemonstrated improvements in tolerance to core strengthening with increased difficulty without LBP.The patient will continue to benefit from ongoing skilled physical therapy to progress toward set goals. PLAN FOR NEXT VISIT: Continue advancing core strengthening as tolerated. SUBJECTIVE: Pt reports that she woke up stiff in her lower back. Pt states that she did not have soreness with new core exercises. Pt reports that she has been doing planks at home, 2 minutes normal,1 minute each side. Pain: Pain Pain Level: 0 Pain Location: Low Back/Lumbar Spine- Midline, Low Back/Lumbar Spine - Right Post Treatment Pain Post Treatment Pain Location: Low Back/Lumbar Spine - Right, Low Back/Lumbar Spine- Midline OBJECTIVE MEASURES WITH LEVEL OF FUNCTION: From observed throughout session. TREATMENT: Therapeutic Exercise: 1: *Supine with only shoulders on 85 cm physioball, alt LE marching 2x10 B 2: *Supine with only shoulders on 85 cm physioball, alt LE extensions 2x10 B 3: *Hip thrusts at table 2x10 4: *Pallof's press with PuTB 2x10 facing each direction 5: * Stir the Pot with PuTB 2x10 CW and CCW facing each direction 6: Bird dogs 2x10 B 7: *Discontinue previous HEP, except for stretches as needed. Skilled Intervention: Patient was educated in proper exercise technique and purpose for exercises. Reviewed and educated patient on additions/changes for home exercise program as above (*). Skilled judgment was used in selection of appropriate interventions. Provided written instruction for home exercise program to facilitate proper performance and compliance. Correct performance of therapeutic exercises was facilitated with verbal and visual cuing. Billing Therapeutic Exercise Treatment Minutes: 39 Skilled Treatment Time Minutes (timed and untimed codes): 39 Total Session Time (minutes): 39 Session Start Time : 0800 Session Stop Time : 0839 VASILE Tony PT documented in [facility] NoteHNO ID: [id number] Author: CESAR MAO PT Service: ? Author Type: Physical Therapist Type: Progress Notes Filed: 07/22/2024 09:21 Note Text: Episode Visit Count: 3 Therapist That Will Accept/Oversee The Plan Of Care: Cesar Mao PT Start of Care Date: 06/28/24 Onset Date: 03/27/24 Patient Identified by Name and Date of : Yes REHABILITATION AND SPORTS THERAPY PHYSICAL THERAPY TREATMENT NOTE ASSESSMENT: Amina Bella tolerated the session with fatigue and expected muscle soreness. She demonstrated improvements in tolerance to core strengthening with increased difficulty without LBP. The patient will continue to benefit from ongoing skilled physical therapy to progress toward set goals. PLAN FOR NEXT VISIT: Continue advancing core strengthening as tolerated. SUBJECTIVE: Pt reports that she woke up stiff in her lower back. Pt states that she did not have soreness with new core exercises. Pt reports that she has been doing planks at home, 2 minutes normal, 1 minute each side. Pain: Pain Pain Level: 0 Pain Location: Low Back/Lumbar Spine- Midline, Low Back/Lumbar Spine - Right Post Treatment Pain Post Treatment Pain Location: Low Back/Lumbar Spine - Right, Low Back/Lumbar Spine- Midline OBJECTIVE MEASURES WITH LEVEL OF FUNCTION: From observed throughout session. TREATMENT: Therapeutic Exercise: 1: *Supine with only shoulders on 85 cm physioball, alt LE marching 2x10 B 2: *Supine with only shoulders on 85 cm physioball, alt LE extensions 2x10 B 3: *Hip thrusts at table 2x10 4: *Pallof's press with PuTB 2x10 facing each direction 5: * Stir the Pot with PuTB 2x10 CW and CCW facing each direction 6: Bird dogs 2x10 B 7: *Discontinue previous HEP, except for stretches as needed. Skilled Intervention: Patient was educated in proper exercise technique and purpose for exercises. Reviewed and educated patient on additions/changes for home exercise program as above (*). Skilled judgment was used in selection of appropriate interventions. Provided written instruction for home exercise program to facilitate proper performance and compliance. Correct performance of therapeutic exercises was facilitated with verbal and visual cuing. Billing Therapeutic Exercise Treatment Minutes: 39 Skilled Treatment Time Minutes (timed and untimed codes): 39 Total Session Time (minutes): 39 Session Start Time : 0800 Session Stop Time : 08 VASILE Tony, [facility]10-17-2024 History of Present illness Narrative* Pinky Ladd PTA - 07/08/2024 8:33 AM EDT Program_ID:[id number] Access Code: [email or web address] URL: [email or web address] Date: 07-08-2024 Prepared By: Cesar Mao Program Notes Exercises - Hooklying Single Knee to Chest Stretch - 3 x daily - 7 x weekly - sets - 3 reps - Supine Double Knee to Chest - 3 x daily - 7 x weekly - sets - 3 reps - Seated Flexion Stretch - 2-3 x daily - 7 x weekly - 2 sets - 10 reps - Supine Lower Trunk Rotation - 2-3 x daily - 7 x weekly - 2 sets - 10 reps - Supine Posterior Pelvic Tilt - 2-3 x daily - 7 x weekly - 2 sets - 10 reps - Supine March with Posterior Pelvic Tilt - 2-3 x daily - 7 x weekly - 2 sets - 10 reps - Bent Knee Fallouts with Alternating Legs - 2-3 x daily - 7 x weekly - 2 sets - 10 reps * Cesar Mao, PT - 07/08/2024 7:58 AM EDT Episode Visit Count: 2 Therapist That Will Accept/Oversee The Plan Of Care: Cesar Mao PT Start of Care Date: 06/28/24 Onset Date: 03/27/24 Patient Identified by Name and Date of : Yes REHABILITATION AND SPORTS THERAPY PHYSICAL THERAPY TREATMENT NOTE ASSESSMENT: Amina Bella tolerated the session with fatigue and expected muscle soreness. Shedemonstrated improvements in endurance with core strengthening without increase in LBP or radicularsymptoms. The patient will continue to benefit from ongoing skilled physical therapy to progress toward set goals. PLAN FOR NEXT VISIT: Asses response to core strengthening for HEP. Asses response to manual traction and continue prn. SUBJECTIVE: Pt reports that her back is doing okay. She is still waking up with her back hurting. She states some improvement. Pt states compliance with HEP 2x per day, some days 3x. Pain: Pain Pain Level: 0 (4-5/10 getting up this morning) Pain Location: Low Back/Lumbar Spine- Midline, Low Back/Lumbar Spine - Right Post Treatment Pain Post Treatment Pain Level: Better Post Treatment Pain Location: Low Back/Lumbar Spine - Right, Low Back/Lumbar Spine- Midline OBJECTIVE MEASURES WITH LEVEL OF FUNCTION: Good form with PPT. TREATMENT: Therapeutic Exercise: 1: B SKTC 3x30 seconds each 2: DKTC 3x30 seconds 3: *LTR 2x10 B 4: *PPT 2x10 5: *PPT with alt LE marching 2x10 B 6: *PPT with alt BKFO 2x10 B Skilled Intervention: Patient was educated in proper exercise technique and purpose for exercises. Reviewed and educated patient on additions/changes for home exercise program as above (*). Skilled judgment was used in selection of appropriate interventions. Provided written instruction for home exercise program to facilitate proper performance and compliance. Correct performance of therapeutic exercises was facilitated with verbal and visual cuing. Manual Therapy: 1: Manual lumbar belt traction with BLE elevated on stool with caudal pull to tolerance x 10 minutes. Skilled Intervention: Manual skills to improve joint mobility, ROM, and decrease pain. Utilized anatomy knowledge of the therapist, and assessment of patient's response to intervention. Billing Therapeutic Exercise Treatment Minutes: 38 Manual TherapyTreatment Minutes: 10 Skilled Treatment Time Minutes (timed and untimed codes): 48 Total Session Time (minutes): 48 Session Start Time : 7 Session Stop Time : 0845 VASILE Tony PT documented in [facility]10-[facility]24 NoteHNO ID: [id number] Author: CESAR MAO PT Service: ? Author Type: Physical Therapist Type: Progress Notes Filed: 07/08/2024 09:09 Note Text: Episode Visit Count: 2 Therapist That Will Accept/Oversee The Plan Of Care: Cesar Mao PT Start of Care Date: 06/28/24 Onset Date: 03/27/24 Patient Identified by Name and Date of : Yes REHABILITATION AND SPORTS THERAPY PHYSICAL THERAPY TREATMENT NOTE ASSESSMENT: Amina Bella tolerated the session with fatigue and expected muscle soreness. She demonstrated improvements in endurance with core strengthening without increase in LBP or radicular symptoms. The patient will continue to benefit from ongoing skilled physical therapy to progress toward set goals. PLAN FOR NEXT VISIT: Asses response to core strengthening for HEP. Asses response to manual traction and continue prn. SUBJECTIVE: Pt reports that her back is doing okay. She is still waking up with her back hurting. She states some improvement. Pt states compliance with HEP 2x per day, some days 3x. Pain: Pain Pain Level: 0 (4-5/10 getting up this morning) Pain Location: Low Back/Lumbar Spine- Midline, Low Back/Lumbar Spine - Right Post Treatment Pain Post Treatment Pain Level: Better Post Treatment Pain Location: Low Back/Lumbar Spine - Right, Low Back/Lumbar Spine- Midline OBJECTIVE MEASURES WITH LEVEL OF FUNCTION: Good form with PPT. TREATMENT: Therapeutic Exercise: 1: B SKTC 3x30 seconds each 2: DKTC 3x30 seconds 3: *LTR 2x10 B 4: *PPT 2x10 5: *PPT with alt LE marching 2x10 B 6: *PPT with alt BKFO 2x10 B Skilled Intervention: Patient was educated in proper exercise technique and purpose for exercises. Reviewed and educated patient on additions/changes for home exercise program as above (*). Skilled judgment was used in selection of appropriate interventions. Provided written instruction for home exercise program to facilitate proper performance and compliance. Correct performance of therapeutic exercises was facilitated with verbal and visual cuing. Manual Therapy: 1: Manual lumbar belt traction with BLE elevated on stool with caudal pull to tolerance x 10 minutes. Skilled Intervention: Manual skills to improve joint mobility, ROM, and decrease pain. Utilized anatomy knowledge of the therapist, and assessment of patient's response to intervention. Billing Therapeutic Exercise Treatment Minutes: 38 Manual TherapyTreatment Minutes: 10 Skilled Treatment Time Minutes (timed and untimed codes): 48 Total Session Time (minutes): 48 Session Start Time : 756 Session Stop Time : 844 Pinky Ladd SUPERVISOR DIAGNO[employer]IC [facility]esar Mao[facility] History of Present illness Narrative* Cesar Mao, PT - 06/28/2024 2:47 PM EDT Images from the original note were not included. Episode Visit Count: 1 Therapist That Will Accept/Oversee The Plan Of Care: Cesar Golias, PT Start of Care Date: 06/28/24 Onset Date: 03/27/24 Patient Identified by Name and Date of : Yes REHABILITATION AND SPORTS THERAPY PHYSICAL THERAPY EVALUATION PLAN OF CARE: Assessment: Amina Bella presents with chief complaint of R groin, hip and low back pain thatinterferes with rising from a chair, walking, lifting, heavy exertion, sleeping (exercising) . The patient presents with impairments in ADL's, independence in exercise, overall function, range of motion, strength, symptom management, and tissue tenderness. PROMIS (Patient-Reported Outcomes Measurement Information System) scores were reviewed and identified as a rehabilitation concern. Prognosis for therapy is Excellent due to: current objective clinical presentation, good overall health status,within-session changes, positive past response to therapy, good support system/ coping skills. The patient will benefit from skilled therapy services to meet the goals established for this plan of care as noted below. Classification Pain Mechanism Classification: Neuropathic Low Back Pain Classification: Symptom Modulation Goals for Episode of Care: established 06/28/24 Independent in home exercises. Patient will decrease pain to 0/10 at rest and with functional activities to allow patient to improve ambulation, transfers, and standing tolerance for ADLs. Restore pain-free lumbar ROM to WFL to allow for improved tolerance with lifting Stand / Walk without limitations, without pain/symptoms. Sleep through night without pain/symptoms. Patient will increase strength of core/postural muscles to WFL to allow for improve ability to complete ADLs and exercise. Patient Goals: decrease pain and regain prior functional level. Time Frame for Goals and Treatment : 08/09/24 Planned Interventions, Frequency, and Duration: Current Frequency: 1x/week Duration: 6 weeks Total Number of Visits Planned: 6 Planned Treatment Interventions: Therapeutic exercise (88810), Manual therapy (63272), Neuromuscular re-education (80577), Therapeutic activities (25503), Self-long term management (32868), Gait Training (55457), Patient/Family/Caregiver Education, Body Mechanics Training PLAN FOR NEXT VISIT: Review, correct and progress HEP to tolerance. Continue with postural stretching and strengthening therex with flexion directional preference. Consider manual lumbar belt traction prn. Patient demonstrates good understanding of plan of care and treatment. The above goals and plan of care were discussed and agreed upon by patient/family. SUBJECTIVE: Pt reports intermittent pain in R side of low back and into R groin. She reports that pain can radiate down into anterior R thigh. She reports that she had similar symptoms 4 years ago but these never fully resolved. Her current symptoms were aggravated by lifting a lot of heavy luggage and this episode is worse than 4 years ago. She reports that a recent trip caused an increase in pain from lifting luggage. Patient Goals: decrease pain and regain prior functional level. 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 Cancer Clinical Reasoning: No identified risk factors. Infection Clinical Reasoning: No identified risk factors. Cauda Equina Syndrome Clinical Reasoning: No identified risk factors. Red Flags - Cervical Cancer Clinical Reasoning: No identified risk factors. Infection Clinical Reasoning: No identified risk factors. Spine History Symptoms Location at Onset: (R groin) Symptoms Since Onset: Improving (slowly getting better) Pain is Worse Always: Standing, Walking, Rising Pain is Better Always: Sitting Previous Episodes: Yes Previous Spine Episodes: similar symptoms previously but not as severe Sleeping Position: Side lying right, Side lying left Sleep Affected by Pain: Pain awakens, Pain keeps from falling asleep Pain: Pain Pain Level: 7 (7/10 at worst, 0/10 currentlly at rest sitting) Pain Location: Groin - Right, Low Back/Lumbar Spine - Right, Thigh - Right Description: Aching (strong deep ache) Frequency: Intermittent, Standing, Walking Post Treatment Pain Post Treatment Pain Level: No Change PROMIS Scales 06/28/2024 Higher is Better Phys Func - Score 44 (mild dysfunction) Phys Func - Percentile 27 Self-Eff Symptom - Score 45 (Average) Self-Eff Symptom - Percentile 31 T-scores: mean of general population = 50. 5 points is clinically meaningfully difference Percentiles provide an indication of how the patient's score ranks in relation to the general population. Higher percentile rankings indicate better function/quality of life. 50th percentile is the average of the general population and indicates half of respondents had a worse score. OBJECTIVE MEASURES WITH LEVEL OF FUNCTION: Posture / Alignment Posture: Good Lumbo - Pelvic Alignment: In standing: ASIS and PSIS are level. In supine: ASIS are level and no LLD Leg Length Discrepency: none Hip Observations R Hip Palpation Tenderness: Piriformis (SI joint) Sensation - Lower Extremity LE Light Touch Sensation: Grossly Intact Spine Observations R Lumbar Spine Palpation Tenderness: Piriformis (SI joint) Sensation - Lumbar Sensation: Grossly Intact Lumbar Spine AROM Lumbar Flexion: Normal Lumbar Extension: Normal Lumbar R Side-Bend: Minimal limitation Lumbar L Side-Bend: Minimal limitation Lumbar R Rotation: Minimal limitation Lumbar L Rotation: Minimal limitation Lumbar Spine AROM Comments: No pain with lumbar AROM LE Flexibility Flexibility: Piriformis Flexibility R Piriformis Flexibility: 54 L Piriformis Flexibility: 53 LE Strength Trunk Strength: Pt's job demands, reported chronicity of symptoms and reported functional difficulties indicate that she will benefit from increased core and postural strength R LE Strength: No asymmetrical myotomal weakness detected in B LEs at this time L LE Strength: No asymmetrical myotomal weakness detected in B LEs at this time Special Tests - Hip and Spine Hip and Spine Special Tests: SLR Test SLR Test: Right Positive, Left Negative Gait Gait Observation: normal Vitals BP: 155/110 Pulse: 76 Education: Education Learning Preferences: Demonstration, Explanation, Performance, Printed Materials Barriers: None Learning/educational needs: Home exercise program, Plan of Care, Posture, Body Mechanics Education Provided: Yes, see treatment interventions for education provided Education Provided To: Patient Education Mode/Type: Demonstration, Explanation/Discussion, Literature/Printed Materials, Performance Response to Education/Teach Back: States/Identifies, Return Demonstration, Requires Review/Additional Education TREATMENT: PT Treatment Interventions: Therapeutic Exercise Evaluation Therapeutic Exercise: 1: Pt was educated extensively on the anatomy of lumbar spine and pelvis. She was educated on the likely etiology of her symptoms and the rationale for proposed PT plan of care. She was advised to use pain as her guide at all times and to stop any exercise that causes increased pain. She was educated on her flexion directional preference and how this impacts her functional task performancy and exercise routine. She was advised to stop all lumbar spine extension excercises based on her directional preference for flexion. She was educated on the option of using manual lumbar traction but that she is not a good candidate for use of inversion table at home because of her high blood pressure today. 2: *supine R SKTC 3x30 seconds 3: *supine DKTC 3x30 Skilled Intervention: Patient was educated in proper exercise technique and purpose for exercises. Reviewed and educated patient on additions/changes for home exercise program as above (*). Skilled judgment was used in selection of appropriate interventions. Provided written instruction for home exercise program to facilitate proper performance and compliance. Correct performance of therapeutic exercises was facilitated with verbal, visual, and tactile cuing. Patient education as noted. Billing * Evaluation Moderate Complexity: 1 Unit Therapeutic Exercise Treatment Minutes: 32 Skilled Treatment Time Minutes (timed and untimed codes): 62 Total Session Time (minutes): 62 Session Start Time : 829 Session Stop Time : 931 Cesar Mao PT * Cesar Mao PT - 06/28/2024 9:31 AM EDT Program_ID:[id number] Access Code: [email or web address] URL: [email or web address] Date: 06-28-2024 Prepared By: Cesar Mao Program Notes Exercises - Hooklying Single Knee to Chest Stretch - 3 x daily - 7 x weekly - sets - 3 reps - Supine Double Knee to Chest - 3 x daily - 7 x weekly - sets - 3 reps [facility] NoteHNO ID: [id number] Author: CESAR MAO PT Service: ? Author Type: Physical Therapist Type: Progress Notes Filed: 06/28/2024 14:53 Note Text: Episode Visit Count: 1 Therapist That Will Accept/Oversee The Plan Of Care: Cesar Mao PT Start of Care Date: 06/28/24 Onset Date: 03/27/24 Patient Identified by Name and Date of : Yes REHABILITATION AND SPORTS THERAPY PHYSICAL THERAPY EVALUATION PLAN OF CARE: Assessment: Amina Bella presents with chief complaint of R groin, hip and low back pain that interferes with rising from a chair, walking, lifting, heavy exertion, sleeping (exercising) . The patient presents with impairments in ADL's, independence in exercise, overall function, range of motion, strength, symptom management, and tissue tenderness. PROMIS? (Patient-Reported Outcomes Measurement Information System) scores were reviewed and identified as a rehabilitation concern. Prognosis for therapy is Excellent due to: current objective clinical presentation, good overall health status, within-session changes, positive past response to therapy, good support system/ coping skills. The patient will benefit from skilled therapy services to meet the goals established for this plan of care as noted below. Classification Pain Mechanism Classification: Neuropathic Low Back Pain Classification: Symptom Modulation Goals for Episode of Care: established 06/28/24 Independent in home exercises. Patient will decrease pain to 0/10 at rest and with functional activities to allow patient to improve ambulation, transfers, and standing tolerance for ADLs. Restore pain-free lumbar ROM to WFL to allow for improved tolerance with lifting Stand / Walk without limitations, without pain/symptoms. Sleep through night without pain/symptoms. Patient will increase strength of core/postural muscles to WFL to allow for improve ability to complete ADLs and exercise. Patient Goals: decrease pain and regain prior functional level. Time Frame for Goals and Treatment : 08/09/24 Planned Interventions, Frequency, and Duration: Current Frequency: 1x/week Duration: 6 weeks Total Number of Visits Planned: 6 Planned Treatment Interventions: Therapeutic exercise (92170), Manual therapy (66422), Neuromuscular re-education (26451), Therapeutic activities (66641), Self-long term management (38957), Gait Training (99971), Patient/Family/Caregiver Education, Body Mechanics Training PLAN FOR NEXT VISIT: Review, correct and progress HEP to tolerance. Continue with postural stretching and strengthening therex with flexion directional preference. Consider manual lumbar belt traction prn. Patient demonstrates good understanding of plan of care and treatment. The above goals and plan of care were discussed and agreed upon by patient/family. SUBJECTIVE: Pt reports intermittent pain in R side of low back and into R groin. She reports that pain can radiate down into anterior R thigh. She reports that she had similar symptoms 4 years ago but these never fully resolved. Her current symptoms were aggravated by lifting a lot of heavy luggage and this episode is worse than 4 years ago. She reports that a recent trip caused an increase in pain from lifting luggage. Patient Goals: decrease pain and regain prior functional level. 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 Cancer Clinical Reasoning: No identified risk factors. Infection Clinical Reasoning: No identified risk factors. Cauda Equina Syndrome Clinical Reasoning: No identified risk factors. Red Flags - Cervical Cancer Clinical Reasoning: No identified risk factors. Infection Clinical Reasoning: No identified risk factors. Spine History Symptoms Location at Onset: (R groin) Symptoms Since Onset: Improving (slowly getting better) Pain is Worse Always: Standing, Walking, Rising Pain is Better Always: Sitting Previous Episodes: Yes Previous Spine Episodes: similar symptoms previously but not as severe Sleeping Position: Side lying right, Side lying left Sleep Affected by Pain: Pain awakens, Pain keeps from falling asleep Pain: Pain Pain Level: 7 (7/10 at worst, 0/10 currentlly at rest sitting) Pain Location: Groin - Right, Low Back/Lumbar Spine - Right, Thigh - Right Description: Aching (strong deep ache) Frequency: Intermittent, Standing, Walking Post Treatment Pain Post Treat (more content not included)...[facility]09-04-2024 Telephone encounter Note* Telephone Encounter - Supriya Spain APRN.CNP - 05/26/2024 12:33 PM EDT Reviewed. Supriya Spain APRN.CNP [facility] Work Phone: [phone] 533-902609-04-2024 Miscellaneous Notes* Telephone Encounter - Supriya Spain APRN.CNP - 05/26/2024 12:33 PM EDT Reviewed. Supriya Spain APRN.CNP * Telephone Encounter - Sharda Cedeno LPN - 05/26/2024 9:15 AM EDT Patient telephoned and notified. Voices understanding. States she will try therapy first and will keep you posted and follow up at her next appointment regarding. Sharda Cedeno LPN * Telephone Encounter - Sharda Cedeno LPN - 05/26/2024 9:15 AM EDT ----- Message from Supriya Spain APRN.MOTEL FRONT DESK ATTENDANT sent at 05/26/2024 7:36 AM EDT ----- US did not show any signs of hernia however it did say may wish other means of evaluation to rule out. We can proceed with CT or she can do some therapy to see if that helps first. Supriya Spain APRN.MOTEL FRONT DESK ATTENDANT documented in this encounter[facility] Telephone encounter Note * Telephone Encounter - Sharda Cedeno LPN - 05/26/2024 9:15 AM EDT Patient telephoned and notified. Voices understanding. States she will try therapy first and will keep you posted and follow up at her next appointment regarding. Sharda Cedeno LPN [facility]09-04-2024 Telephone encounter Note* Telephone Encounter - Sharda Cedeno LPN - 05/26/2024 9:15 AM EDT ----- Message from Supriya Spain APRN.MOTEL FRONT DESK ATTENDANT sent at 05/26/2024 7:36 AM EDT ----- US did not show any signs of hernia however it did say may wish other means of evaluation to rule out. We can proceed with CT or she can do some therapy to see if that helps first. Supriya Spain APRN.MOTEL FRONT DESK ATTENDANT [facility]09-03-2024 History of Present illness Narrative* Podlogar, NINA Epps.BRENNA - 05/25/2024 8:40 AM EDT 05/25/2024 Patient presents with: Follow Up: Right side lower abdominal pain, previously saw DIRECTOR QUALITY ASSURANCE for this in the spring and they recommended she see family health SUBJECTIVE: This is a 59 year old that is here today for Above Complaints. ONSET: few months ago after lifting luggage LOCATION: right groin and right back DURATION: intermittent CHARACTERISTICS: aching in back. 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 Denies previous/past surgeries to back, saddle anaesthesia, extremity numbness, tingling, weakness,urinary/bowel incontinence or inability PAST MEDICAL HISTORY 2014: Vasculitis (HCC) ALLERGIES Codeine and Latex, Natural Rubber MEDICATIONS Current Outpatient Medications Medication Sig ascorbic acid (VITAMIN C ORAL) Take by mouth. cholecalciferol, vitamin D3, (VITAMIN D3 ORAL) Take by mouth. vitamin B complex-folic acid 2,000 mcg cap Take by mouth. ZINC ORAL Take by mouth. No current facility-administered medications for this visit. Medications and allergies reviewed by this provider. SOCIAL HISTORY Social History Tobacco Use Smoking status: Never Smokeless tobacco: Never Substance Use Topics Alcohol use: Yes Comment: occasionally Drug use: Never REVIEW OF SYSTEMS All other reviewed and negative other than HPI. OBJECTIVE: BP 152/102 Pulse 68 Resp 18 Wt 65.7 kg (144 lb 13.5 oz) LMP 11/08/2013 SpO2 98% BMI 25.26 kg/m . Vital signs reviewed by this provider. APPEARANCE Well appearing, alert, in no acute distress, well-hydrated, well nourished. EYES PERRLA, conjunctiva and sclera normal. ABDOMEN bowel sounds normoactive, no bruits, soft, non-tender, non-distended, without organomegaly or palpable masses BACK: no pain to palpation, good flexion and extension, negative SLR test HIP: No obvious deformity, swelling or erythema. FROM without pain or difficulty. No clunking EXTREMITIES Extremities normal, No deformities, No skin discoloration, and No edema NEURO Awake, alert and oriented x 3, Reflexes symmetrical, Normal gait, No involuntary motions., and negative findings: muscle tone normal, muscle strength normal, reflexes normal and symmetric, plantar response downgoing bilaterally SKIN Skin color, texture, turgor normal, no suspicious rashes or lesions to exposed skin Depression Screening Never done Anxiety Screening Never done Hepatitis C Screening Never done HIV Screening Never done DTaP,Tdap,Td Vaccine(1 - Tdap) Never done Hepatitis B Vaccine(1 of 3 - 19+ 3-dose series) Never done Mammogram Screening Never done Lipid Screening Never done Diabetes Screening Never done Shingrix Vaccine(1 of 2) Never done Covid-19 Vaccine( - season) Never done Influenza Vaccine(1) due on 05/23/2024 Colorectal Cancer Screening due on 02/01/2025 Cervical Cancer Screening due on 05/13/2029 ASSESSMENT/PLAN: 1. Right groin pain - ICD9: 789.03, ICD10: R10.31 (primary diagnosis) - consider hernia vs related to back pain - US GROIN UNL VAS LAB - CONSULT TO PHYSICAL THERAPY - follow-pending US 2. Right-sided low back pain with right-sided sciatica, unspecified chronicity - ICD9: 724.3, ICD10: M54.41 - Warm moist heat for 20 min three times a day - PT consult - Patient given instructions use of medications as ordered, intermittent rest, back care exercise program, improved posture, proper lifting techniques, intermittent use of heat, and avoiding sleepingon a heating pad - Follow up if symptoms fail to improve to ER with red flag symptoms - CONSULT TO PHYSICAL THERAPY 3. Elevated BP without diagnosis of hypertension - ICD9: 796.2, ICD10: R03.0 - patient reports BP elevated when comes for office visits. 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 - Recommend home blood pressure monitoring, to bring results in on next visit - Encouraged avoidance of excessive alcohol intake - Discussed need and benefit for weight loss. - Follow up in 1 month for BP recheck. - Goal of BP <140/90 Supriya Spain, NINA.MOTEL FRONT DESK ATTENDANT Prescription instructions reviewed with patient as applicable. Patient advised if symptoms do not improve or if symptoms worsen sooner, to contact their primary care physician. Potential red flag symptoms discussed with the patient. Reviewed appropriate action plan to take if red flag symptoms occur. Patient agreeable to treatment plan. Medical Decision Making: Problems: Moderate: New problem with uncertain prognosis Data: Unique test(s) ordered: 1 Risk: Moderate: Moderate risk from testing/treatment Medical Decision Making Level: 4 - Moderate documented in this encounterMartin [facility]08-[facility] History of Present illness Narrative* Susanne Velázquez RDMS - 05/17/2024 2:30 PM EDT Radiology Service Progress Note PATIENT NAME: Amina Bella DATE OF SERVICE: May 17, 2024 TIME: 3:03 PM PATIENT IDENTITY VERIFICATION COMPLETED USING TWO (2) IDENTIFIERS: Name and Date of confirmedby patient verbally. FALL SCREENING: Has the patient had 2 falls in the last year or 1 fall with injury or currently using an Ambulatory Assistive Device (Walker, Cane, Wheelchair, Crutches, etc.)? No PATIENT GENDER DATA: Female. status: : No status: NO. PATIENT RELEVANT IMPLANT DATA REVIEWED: Not Applicable PATIENT PRESENTS WITH AN IMPLANTABLE OR ATTACHED GORE SEAMER: No RADIOLOGY DEPARTMENT: Ultrasound PERIPHERAL IV DATA: Not applicable SIGNED BY: Susanne Velázquez RDMS May 17, 2024 3:03 PM documented in this encounterMartin [facility] Hospital08-22-2024 Instructions* Patient Instructions* Rosita Resendiz APRN.CNM - 05/13/2024 10:25 AM EDT Non-Hormonal Vaginal Lubricants & Vaginal Moisturizers Symptoms of vaginal dryness can be managed by the regular use of vaginal moisturizing agents with supplemental use of vaginal lubricants for sexual intercourse. . Use of vaginal moisturizers and lubricants alone is effective treatment for vaginal dryness or dyspareunia (pain with intercourse) in some patients. Vaginal lubrications- Vaginal lubricants are designed to reduce friction and discomfort from dryness during sexual intercourse. The lubricant is applied inside the vagina and/or on the partner's penis or fingers just before sex. Coconut, [place], Avocado or Peanut oil- natural oils are not recommended for use with latex condoms or diaphragms as they can damage the latex Astroglide- has both water and silicone based KY Jelly- water based Just like me - Pure Romance Almost Naked Good Clean Love - Bio Nude ultra-sensitive Pjur- silicone ID Millennium- silicone Vaginal Moisturizers- Vaginal moisturizers are intended for use routinely, typically two or three days per week, not just during sexual activity. These products are typically bioadhesives. Many moisturizer products are available in pharmacies and online. Restore- [employer] Replens Madhav Feminease Moist Again K-Y Liquid beads Products to assist with maintaining vaginal ph IsoFresh www.Lamsa BiopHresh Rephresh documented in this encounterMartin Memorial Hospital08-22-2024 History of Present illness Narrative* Rosita Resendiz APRN.CNM - 05/13/2024 9:52 AM EDT Amina is a 59 year old who presents for an annual gynecologic exam without complaints. Having right sided lower quadrant pain. Started a couple months ago. Describes pain as sharp. Feels like she cannot lift anything heavy. Burning pain in groin area and umbilicus area. Unsure if hernia or pelvic pain. Does not have appendix. Postmenopausal: Yes since age 56 HRT use: No. 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 History Comments: Sexual Activity: Yes; Male; postmenopausal Contraception: Other PAST MEDICAL HISTORY 2014: Vasculitis (HCC)PAST SURGICAL HISTORY 09/22/1977: ADENOIDECTOMY HX 09/22/1980: APPENDECTOMY HX 1993: DELIVERY ONLY 2008: DELIVERY ONLY 12/04/2015: LAPS SURG CHOLECYSTECTOMY W/CHOLANGIOGRAPHY Comment: normal [facility] FAMILY HISTORY Problem Relation Age of Onset other (No family hx of breast cancer[Other]) Unknown Cancer Paternal Grandfather stomach Hypertension Father Heart Mother Heart Father Heart Maternal Grandmother SOCIAL HISTORY Social History Tobacco Use Smoking status: Never Smokeless tobacco: Never Substance Use Topics Alcohol use: Yes Comment: occasionally Drug use: Never REVIEW OF SYSTEMS Abdomen: No abdominal pain, nausea, vomiting, diarrhea, or constipation. No bloating, early satiety, indigestion, or increased flatulence. Bladder: No dysuria, gross hematuria, urinary frequency, urinary urgency, or incontinence Breast: No breast lumps, nipple d/c, overlying skin changes, redness or skin retraction Allergies and current medication updated:Yes EXAM: BP 138/88 Ht 5' 3.5 (1.61m) Wt 144 lb (65.3kg) LMP 11/08/2013 BMI 25.11 kg/(m^2). GENERAL: pleasant, female in no apparent distress HEENT: Normocephalic and atraumatic NECK: Supple, full range of motion, no adenopathy, and thyroid normal DERMATOLOGY: Normal, without lesions, non-icteric, and non-hirsute BREAST: soft, non-tender, symmetric, no dominant mass, normal nipple-areolar complex, no lymphadenopathy, no nipple discharge, and fibrocystic changes CHEST: Normal inspiratory effort ABDOMEN: soft, non-tender, and no masses PELVIC: external genitalia normal, no vulvar lesions, no cervical lesions, atrophic changes BIMANUAL: uterus normal size, shape and consistency, no adnexal masses, non- tender, and no cervicalmotion tenderness RECTOVAGINAL: deferred. NEURO: alert and oriented x3,exam grossly non-focal EXTREMITIES: normal ASSESSMENT/PLAN: 1) Health maintenance: Pap done with HPV. Mammogram ordered Pelvic US ordered for RLQ pain Nutrition, exercise and routine health maintenance exams reviewed. Colon cancer screening: patient to discuss with PCP TSH/lipids/glucose: followed by PCP 2) Will follow up with patient after pelvic US Rosita Resendiz APRN.CNM documented in this encounterMartin [facility] Hospital08-04-2023 NotePap Smear Specimen AdequacyAugust 2022 3:00pmComment.Satisfactory for evaluation. Endocervical component may not bedistinguished in cases of atrophy.[facility] INTERFACED A#[id number] Memorial HospitalComment on above:Satisfactory for evaluation. Endocervical component may not bedistinguished in cases of atrophy. Evaluation noteNo assessment information availableWWyandot Memorial Hospital Work Phone: Evaluation note* Diagnosis Onset Date Resolution Status Carpal tunnel syndrome acute Encounter for wellness examination in adult acute Total bilirubin, elevated ac henry Hypertension [facility] Work Phone: Evaluation note* Diagnosis Encounter for gynecological examination (general) (routine) without abnormal findings- Primary Encounter for screening for human papillomavirus (HPV) Special screening examination for human papillomavirus (HPV) Pap smear for cervical cancer screening Screening for malignant neoplasm of the cervix Encounter for screening mammogram for breast cancer Dense breast tissue Abdominal pain, RLQ Abdominal pain, right lower quadrant Pelvic pain in female Unspecified symptom associated with female genital organs documented in this encounter [facility]* Diagnosis Abdominal pain, RLQ Abdominal pain, right lower quadrant Pelvic pain in female Unspecified symptom associated with female genital organs [facility]* Diagnosis Right groin pain- Primary Abdominal pain, right lower quadrant Right-sided low back pain with right-sided sciatica, unspecified chronicity Elevated BP without diagnosis of hypertension documented in this encounter [facility]* Diagnosis Acute back pain with sciatica, right- Primary Right groin pain Abdominal pain, right lower quadrant Right-sided low back pain with right-sided sciatica, unspecified chronicity documented in this encounter [facility]* Diagnosis Right groin pain- Primary Abdominal pain, right lower quadrant Acute back pain with sciatica, right documented in this encounter [facility]* Diagnosis Right groin pain- Primary Abdominal pain, right lower quadrant Acute back pain with sciatica, right documented in this encounter [facility]* Diagnosis Right groin pain- Primary Abdominal pain, right lower quadrant Acute back pain with sciatica, right documented in this encounter [facility]* Diagnosis Encounter for gynecological examination (general) (routine) without abnormal findings- Primary Encounter for screening mammogram for breast cancer Dense breast tissue Post-menopausal Asymptomatic postmenopausal status (age-related) (natural) Vaginal dryness, menopausal Symptomatic menopausal or female climacteric states documented in this encounter [facility]* Diagnosis Onset Date Resolution Status Admit Date Encounter for wellness examination in adult acute May 252024 7:57am [facility] Work Phone: Evaluation note* Diagnosis Encounter for screening mammogram for breast cancer documented in this encounter [facility] for referral (narrative)* Diagnostic Procedure Only (Routine) - Authorized Specialty Diagnoses / Procedures Referred By Susan hansen Referred To Contact [facility] Diagnoses Abdominal pain, RLQ Pelvic pain in female Procedures US FEMALE PELVIS TRANSVAG US TRANSVAGINAL Rosita Resendiz APRN.CNM [address] [place] [address] [place] [address] Referral ID Status Reason Start Date Expiration Date Visits Requested Visits Authorized [id number] Authorized Auto-Generat ed Referral 05/13/2024 06/12/2025 1 1 * Diagnostic Procedure Only (Routine) - Authorized Specialty Diagnoses / Procedures Referred By Susan hansen Referred To Contact [facility] Diagnoses Encounter for gynecological examination (general) (routine) without abnormal findings Encounter for screening mammogram for breast cancer Dense breast tissue Procedures YULY SCREENING W ROLAND SCREENING DIGITAL BREAST TOMOSYNTHESIS BI SCREENING MAMMOGRAPHY BI 2-VIEW BREAST INC CAD Rosita Resendiz APRN.CNM [address] [place] [address] [facility] [address] [place] [address] Referral ID Status Reason Start Date Expiration Date Visits Requested Visits Authorized [id number] Authorized Auto-Generat ed Referral 05/13/2024 06/12/2025 1 1 [facility] HospitalReason for referral (narrative)No reason for referral information availableOur Lady Of Peace Hospital Services Work Phone: Reason for visit Narrative* Diagnostic Procedure Only (Routine) - Closed Specialty Diagnoses / Procedures Referred By Susan hansen Referred To Contact [facility] Diagnoses Encounter for screening mammogram for breast cancer Procedures YULY SCREENING W ROLAND SCREENING DIGITAL BREAST TOMOSYNTHESIS BI SCREENING MAMMOGRAPHY BI 2-VIEW BREAST INC Rosita Dupree APRN.CNM [address] [place] [address] Phone: tel: fax: [facility] [address] [place] [address] Referral ID Status Reason Start Date Expiration Date V isits Requested Visits Authorized [id number] Closed Auto-Generate d Referral 05/18/2025 06/17/2026 1 1 [facility] Chief Complaint and Reason for Visit Chief Complaint SCREENING CERVICAL SPRAIN Chief Complaint Annual/Physical E-ORDER Reason for Visit Carpal tunnel syndro me Encounter for wellness examination in adult Total bilirubin, elevated Hypertension Chief Complaint Annual/Physical E-ORDER BACK PAIN JAUNDICE Reason for Visit Carpal tunnel syndro me Encounter for wellness examination in adult Total bilirubin, elevated Hypertension Chief Complaint L FOOT SPRAIN Chief Complaint Admit Date Annual/Physical May 25, 2025 7:57am Reason for Visit Admit Date Encounter for wellness examination in [facility] May 25, 2025 7:57am Chief Complaint Admit Date Annual/Physical May 25, 2025 7:57am Rt Side Muscle Pull June 28, 2025 9: 51am Reason for Visit Admit Date Elevated bilirubin May 25, 2025 7:57am Encounter for wellness examination in [facility] May 25, 2025 7:57am Family History No Family History Records Found Relationship Condition Age at Onset Recorded Date/T sallie Not Specified Malignant neoplasm of skin Unknown Cardiac disease Unknown Hyperlipidemia Unknown Myocardial infarction Unknown Hypertension Unknown Disorder of thyroid Unknown Asthma Unknown Reason for Referral Specialty Diagnoses / Procedures Referred By Susan hansen Referred To Contact [facility] Diagnoses Right groin pain Right-sided low back pain with right-sided sciatica, unspecified chronicity Procedures CONSULT TO PHYSICAL THERAPY PHYSICAL THERAPY EVALUATION HIGH COMPLEX 45 MINS Podlogar, Supriya, SHELL SIEVE OPERATOR.MOTEL FRONT DESK ATTENDANT [address] [place] [address] [facility] [address] [place] [address] Referral ID Status Reason Start Date Expiration Date Visits Requested Visits Authorized [id number] Authorized Auto-Generat ed Referral 09/22/2023 09/21/2024 20 20 Specialty Diagnoses / Procedures Referred By Contac t Referred To Contact [facility] Diagnoses Right groin pain Procedures US GROIN UNL VAS LAB DUP-SCAN LXTR ART/ARTL BPGS UNI/LMTD STUDY Podlogar, Supriya, SHELL SIEVE OPERATOR.MOTEL FRONT DESK ATTENDANT [address] [place] [address] [facility] [address] [place], [place] [address] Referral ID Status Reason Start Date Expiration Date V isits Requested Visits Authorized [id number] Closed Auto-Generate d Referral 05/25/2024 05/25/2025 1 1 Summary Purpose Advance Directives No Advanced Directives Records FoundNo Advanced Directives Records Found Additional Source Comments Goals (unrecognized section and content) Goals may be documented in a n alternate sectionGoals may be documented in an alternate sectionGoals may be documented in an alternate sectionGoals may be documented in an alternate sectionGoals may be documented in an alternate sectionGoals may be documented in an alternate section Care Teams (unrecognized sec tion and content) Team Status: Active Member Role Status Dates Dr. Alejandra Swan MD Family Provider Active Dr. Avril Ziegler MD Primary Care Provider Active Team Status: Inactive Member Role Status Dates Dr. Avril Ziegler MD Primary Care Provider, Attendi ng Provider Active Team Status: Inactive Member Role Status Dates Dr. Avril Ziegler MD Primary Care Pro vider, Attending Provider, Referring Provider Active Team Status: Inactive Member Role Status Dates Dr. Avril Ziegler MD Primary Care Provider Active Dr. Nahun Beauchamp DC Attending Provider, Referring Brown alvares Active Team Status: Active Member Role/Relationship Status Dates Dr. Alejandra Swan MD Family Provider Active Dr. Avril Ziegler MD Primary Care Provider Active Team Status: Inactive Member Role/Relationship Status Dates Dr. Avril Ziegler MD Primary Care Provider Active Start: May 25, 2025 End: May 25, 2025 Dr. Avril Ziegler MD Attending Provider Active Start: May 25, 2025 End: May 25, 2025 Team Status: Active Member Role/Relationship Status Dates Dr. Alejandra Swan MD Primary care physician Active Dr. Avril Ziegler MD Primary care physician Active Team Status: Inactive Member Role/Relationship Status Dates Dr. Avril Ziegler MD Primary care physician Active Start: May 25, 2025 End: May 25, 2025 Dr. Avril Ziegler MD Attending physician Active Start: May 25, 2025 End: May 25, 2025 Team Status: Inactive Member Role/Relationship Status Dates Dr. Avril Ziegler MD Primary care physician Active Start: June 28, 2025 End: June 28, 2025 Dr. Avril Ziegler MD Attending physician Active Start: June 28, 2025 End: June 28, 2025 Source Comments (unrecognize d section and content) In the event this informatio n is protected by the Federal Confidentiality of Alcohol and Drug Abuse Patient Records regulations: The Federal rules restrict any use of the information to criminally investigate or prosecute any alcohol or drug abuse patient.[facility] the event this information is protected by the Federal Confidentiality of Alcohol and Drug Abuse Patient Records regulations: The Federal rules restrict any use of the information to criminally investigate or prosecute any alcohol or drug abuse patient.[facility] the event this information is protected by the Federal Confidentiality of Alcohol and Drug Abuse Patient Records regulations: The Federal rules restrict any use of the information to criminally investigate or prosecute any alcohol or drug abuse patient.[facility] the event this information is protected by the Federal Confidentiality of Alcohol and Drug Abuse Patient Records regulations: The Federal rules restrict any use of the information to criminally investigate or prosecute any alcohol or drug abuse patient.[facility] the event this information is protected by the Federal Confidentiality of Alcohol and Drug Abuse Patient Records regulations: The Federal rules restrict any use of the information to criminally investigate or prosecute any alcohol or drug abuse patient.[facility] the event this information is protected by the Federal Confidentiality of Alcohol and Drug Abuse Patient Records regulations: The Federal rules restrict any use of the information to criminally investigate or prosecute any alcohol or drug abuse patient.[facility] Hospital[facility] the event this information is protected by the Federal Confidentiality of Alcohol and Drug Abuse Patient Records regulations: The Federal rules restrict any use of the information to criminally investigate or prosecute any alcohol or drug abuse patient.[facility] the event this information is protected by the Federal Confidentiality of Alcohol and Drug Abuse Patient Records regulations: The Federal rules restrict any use of the information to criminally investigate or prosecute any alcohol or drug abuse patient.[facility] the event this information is protected by the Federal Confidentiality of Alcohol and Drug Abuse Patient Records regulations: The Federal rules restrict any use of the information to criminally investigate or prosecute any alcohol or drug abuse patient.[facility] the event this information is protected by the Federal Confidentiality of Alcohol and Drug Abuse Patient Records regulations: The Federal rules restrict any use of the information to criminally investigate or prosecute any alcohol or drug abuse patient.[facility] Reason for Visit (unrecogniz ed section and content) Reason Comments Physical Therapy PT Discharge Specialty Diagnoses / Procedures Referred By Contac t Referred To Contact [facility] Diagnoses Right groin pain Right-sided low back pain with right-sided sciatica, unspecified chronicity Procedures CONSULT TO PHYSICAL THERAPY PHYSICAL THERAPY EVALUATION HIGH COMPLEX 45 MINS [employer], NINA Epps.MOTEL FRONT DESK ATTENDANT [address] [place] [address] [facility] [address] [place] [address] Referral ID Status Reason Start Date Expiration Date Visits Requested Visits Authorized [id number] Authorized Auto-Generat ed Referral 09/22/2023 09/21/2024 20 20 Reason Comments Physical Therapy Reason Comments Well Woman Reason Comments Radiology US Specialty Diagnoses / Procedures Referred By Contac t Referred To Contact [facility] Diagnoses Abdominal pain, RLQ Pelvic pain in female Procedures US FEMALE PELVIS TRANSVAG US TRANSVAGINAL Rosita Resendiz APRN.CNM [address] [place] [address] [place] [id number] Referral ID Status Reason Start Date Expiration Date V isits Requested Visits Authorized [id number] Closed Auto-Generate d Referral 05/13/2024 06/12/2025 1 1 Reason Comments Follow Up Right side lower abd ominal pain, previously saw [facility]OR [facility] for this in the spring and they recommended she see family health Reason Comments Results Reason Comments PT Eval Reason Comments Well Woman Specialty Diagnoses / Procedures Referred By Contac t Referred To Contact Cloud 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 Diagnoses Annual Procedures EST WHI ANNUAL PATIENT Rosita Resendiz APRN.CNM [address] [place] [address] Phone: tel: fax: Rosita Resendiz APRN.CNM [address] [place] [address] Phone: tel: fax: Referral ID Status Reason Start Date Expiration Date V isits Requested Visits Authorized [id number] Closed Patient Cleared - Qualified 100% FAS 05/04/2025 08/02/2025 99 99 INFORMATION SOURCE (unrecogn ized section and content) DATE CREATED AUTHOR 05/31/2025 [facility] DATE CREATED AUTHOR AUTHOR'S GONZALO ATSAGE 08/02/2025 [facility] FOR RECORDS PERTAINING TO PATIENTS WHO ARE OR HAVE BEEN ENROLLED IN A CHEMICAL DEPENDENCY/SUBSTANCEABUSE PROGRAM, SOME INFORMATION MAY BE OMITTED. This clinical summary was aggregated from multiple sources. Caution should be exercised in using it in the provision of clinical care. This summary normalizes information from multiple sources, and as a consequence, information in this document may materially change the coding, format and clinical context of patient data. In addition, data may be omitted in some cases. CLINICAL DECISIONS SHOULD BE BASED ON THE PRIMARY CLINICAL RECORDS. [facility] [employer] [facility]. provides no warranty or guarantee of the accuracy or completeness of information in this document.
== END | disposition home or self-care (01) ==
LOC: CT 06:21
PROVIDERS: PCP Internal Medicine; Referring Provider Internal Medicine; Visit Provider Internal Medicine
DX: S76.219A Strain of adductor muscle, fascia and tendon of unspecified thigh, initial encounter (principal); R10.31 Right lower quadrant pain
CPT/HCPCS: 74176

== ENCOUNTER 2025-09-19 11:00 | Outpatient (RCR) | payer OTHER, SELFPAY ==
--- NOTE | 2025-07-05 14:53 | HP.PTEVAL ---
Patient's Visit Information Visit Information Visit Information: AMINA POTTS is a 60 year old F referred to Physical Therapy by Dr. Avril Ziegler MD with a diagnosis of R GROIN STRAIN. Date of Evaluation: 07/05/25 Physical Therapist: Su Ramos PT, Cert MDT Visit Plan Frequency: 2x /Week Duration: 4-6 Weeks Plan: MODALITIES NEEDED TO DECREASE PAIN AND INFLAMMATION IN R HIP AND LOW BACK. CORE AND HIP ROM, STRETCHING AND STRENGTHENING TO HELP NORMALIZE BODY MECHANICS AND POSTURE. HOME INSTRUCTIONS. Subjective Subjective: Work/Leisure: [employer] - WORKING ABOUT ONE HOUR A WEEK TO 20 HOURS A WEEK. 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 DOES YOGA 3-4 DAYS A WK VIA A BOOK. LIKES TO WALK 1.5 TO 3.5 MILES A DAY. Present symptoms: R LOW BACK PAIN, R TOP OF HIP AND R GROIN AREA PAIN. HAD R CALF AREA NERVE PAIN FOR THE FIRST TIME FOR ABOUT 10 MIN LAST NIGHT FOR NO APPARENT REASON. Occasionally L HIP, THIGH AND LEG PAIN (STOPS AT ANKLE). DENIES LLE NUMBNESS AND TINGLING. ALSO DENIES R LE NUNBNESS AND TINGLING. ALSO GETS WIERD SENSATION AT TIMES LIKE SHE DOESN'T HAVE ENOUGH STRENGTH TO SUPPORT HER UPPER BODY. Present since: PATIENT WAS IN HER 20'S WHEN IT STARTED. FLARE UP ABOUT 4 WKS AGO - DOING YOGA DOING A DEEP LUNGE AND RAISED ARMS OVER HEAD AND FELT PAIN IN FRONT OF R HIP FOLLOWED BY BRUISE. ALSO INJURED THIS AREA ABOUT 1 YEAR AGO ON TRIP LIFTING BAGGAGE AND FELT SOMETHING PULL IN FRONT OF R HIP AND R GROIN. Pain Scale: WORST 7/10, LEAST 0/10 Currently: 5/10 Is it getting better, worse or staying the same: GETTING WORSE SINCE PUSHING IT WALKING 3.5 YESTERDAY. Commenced as a result of: PAIN/SORENESS DURING WATER SKIING THEN FELL Symptoms at onset: LOW BACK PAIN Worse: RISING FROM SITTING, STANDING, LIFTING ANYTHING, CARRYING ANYTHING, SITTING IN RECLINER OR SOFT THINGS Better: MOVEMENT, STRETCHING, LYING IN ANY POSITION ON A FIRM BED OR ANY HARD SURFACE, TENS, ICE Disturbed sleep: YES Previous history/Previous treatment: ON AND OFF IN 30'S BACK WOULD GIVE OUT AND WOULD TAKE A FEW DAYS TO RECOVER. ABOUT 8 YEARS AGO WAS TAKING CARE OF DAD AND DOING A LOT OF DRIVING AND STARTED HAVING NON STOP PAIN. 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 CHIROPRACTIC X ABOUT 20 YEARS - ONGOING. HAS ALSO HAD PT HERE AT [facility] AND STOPPED DUE TO COVID. SEEING A FAMILY PRACTICE NURSE PRACTITIONER AND HAS HAD MYOFASCIAL RELEASE AND DOING INDEP'LY CURRENTLY. Treatment this episode: SEE ABOVE Coughing/sneezing/straining: POSITIVE FOR INCREASED PAIN. Gait: DIFFICULTY INITIATING GAIT - TAKES A WHILE TO STRAIGHTEN UP. DENIES FALLING OR FEELING LIKE LEGS ARE GOING TO GIVE OUT. Bowel or Bladder Dysfunction: NO Accidents: NO Unexplained weight loss: NO Imaging: NONE RECENT PMH/Recent major surgery: UNREMARKABLE OTHER: PATIENT REPORTS HER CURRENT INTERVENTIONS ARE LIMITED AND SHE KEEPS FALLING BACK INTO THE SAME FLARE-UPS. PATIENT REPORTS DR. ZIEGLER WANTS TO DO A CT SCAN TO R/O HERNIA IF NO IMPROVEMENT IN 3 WKS. Objective Objective: Sitting/Standing Posture: ANTERIOR PELVIC TILT, INCREASED LORDOSIS. AND R ILIAC CREST HIGHER THAN L. Active Correction of posture: WORSE. ABLE TO ABOLISH BACK AND HIP PAIN TO 0/10 WITH SLOUCHING IN SITTING. Other Observations: PATIENT IS INITIALLY STUCK IN LORDOSIS. Sensory deficit: JAIME LE LIGHT TOUCH SENSATION GROSSLY INTACT AND SYMMETRICAL ROM deficit: JAIME HIP FLEXOR TIGHTNESS Motor deficit: JAIME LE STRENGTH GROSSLY 5/5 EXCEPT R HIP FLEX 4-/5, L HIP FLEX 4/5. Reflexes: JAIME QUADS 2+, ACHILLES 2+ Dural Signs: POSITIVE LLE. NEGATIVE R LE. Lumbar mvmt loss: flex - NIL ext - ALON - INCREASES BACK - NW R SG - MIN - DECREASES BACK - NB L SG - MOD Core strength: FAIR Palpation: LUMBAR AND DEEP R HIP FLEXOR TENDERNESS. TREATMENT: NEUROMUSCULAR REEDUCATION - RETRAINING OF MVMT AND POSTURE FOR SITTING, LYING AND STANDING ACTIVITIES WITH RECOMMENDATION FOR NEUTRAL SPINE AND FREQUENT CHANGE OF POSITION TO TRY TO AVOID AGGREVATING SYMPTOMS. INSTRUCTION IN USE OF LUMBAR SUPPORT IN SITTING TOLERATED. DX ED. Balance/Special Test Scores Lower Extremity Functional Score: 65 Goals Goal 1:: DECREASE C/O BACK AND R LE PAIN BY AT LEAST 75% TO EASE WORK AND ADL FUNCTION Goal Time Frame: 4-6 Weeks Goal 2:: PATIENT WILL REPORT BEING ABLE TO TOLERATE SITTING FOR WORK AND LEISURE LONG NECESSARY/DESIRED WITH PAIN 0-2/10. Goal Time Frame: 4-6 Weeks Goal 3:: PATIENT WILL DEMONSTRATE ABILITY TO LIFT AND CARRY BAGGAGE FOR WORK AND DESIRED AMOUNT FOR LEISURE WITH PROPER BODY MECHANICS AND REPORTING 0-2/10 PAIN. Goal Time Frame: 4-6 Weeks Goal 4:: PATIENT WILL REPORT BEING ABLE TO STAND FOR UP TO 1 HOUR WITH 0-2/10 PAIN TO EASE WORK AND ADL FUNCTION Goal Time Frame: 4-6 Weeks Goal 5:: INDEP HEP Goal Time Frame: 4-6 Weeks Rehabilitation Potential Physical Therapy Diagnosis: THIS PATIENT PRESENTS TO PT WITH C/O ACUTE ON CHRONIC PAIN IN BACK AND R HIP REGIONS. SHE HAS CORE WEAKNESS AND STIFFNESS, JAIME HIP WEAKNESS AND STIFFNESS R>L MAKING TOLERANCE OF ADL'S DIFFICULT. Rehabilitation Potential: Good Anticipated Interventions Patient/Client Instruction: Educate patient on: Condition, Plan of Care and Risk Factors For the Purpose of:: To improve self management Therapeutic Exercise to Include: Strength training, Body mechanics, Postural training, Flexibilty training, Neuromotor development, In an aquatic setting, Dynamic Lumbar Stabilization and Nitesh Exercises Comment: CONSIDER MCKENZIES FLEXION PRINCIPLE FOR ANTERIOR DERANGEMENT BEING CAREFUL OF H/O 2 HNP'S. For the Purpose of:: To decrease pain, To improve muscle performance and motor function, To improve ability to perform ADL's, To increase tolerance to activity/condition/position, To improve ability of physical actions for home/community/work/leisure, To increase flexibility/ROM, To reduce risk of recurrence and To improve self management TENS: Yes IF ES: Yes Cryotherapy (ice pack, ice massage): Yes Thermo therapy (hot pack): Yes Ultrasound (thermal/non thermal): Yes For the Purpose of:: To decrease pain, To decrease swelling/inflammation and To improve nutrient delivery to tissue Text: Thank you for the opportunity to evaluate your patient. For Medicare and Medicare HMO plans, please review the plan of care and approve it. It will need to be FAXED BACK to us at [phone] for Medicare purposes. For Medicare only, by signing this I certify the plan of care. Please let me know if there are questions or concerns regarding this plan of care. Physician Signature: Date:
--- NOTE | 2025-08-16 16:17 | HP.PTREVAL_ITS ---
Re-Evaluation Intro: Dr. Avril Eckert MD, It has been my pleasure to treat AMINA POTTS over the last 13 visits for R GROIN STRAIN. Please see the progress note below for an update on the physical therapy plan of care! Subjective Subjective: PATIENT REPORTS BOTH HER GROIN PAIN AND HER LOW BACK PAIN ARE MUCH BETTER. SHE REPORTS BETTER SITTING, STANDING AND WALKING TOLERANCE NOW. SHE REPORTS SHE HASN'T PUSHED IT THOUGH. SHE REPORTS SHE STILL DOES BETTER ON LEVEL GROUND VS HILLS AND WITH SMALLER VS LARGER STEPS. PATIENT REPORTS IT ALSO ISN'T WAKING HER UP AT NIGHT AND SHE CAN MOVE AROUND IN BED AT NIGHT WITHOUT PAIN NOW WHICH MAKES HER FEEL MORE NORMAL AND SHE IS VERY GRATEFUL FOR THAT. PATIENT REPORTS THE WATER EXERCISE IS REALLY HELPFUL AND SHE GOT A MEMBERSHIP AT THE [employer] TO START supplementing HER PHYSICAL THERAPY. SHE REPORTS SHE IS STILL AVOIDING SOME NORMAL DAILY ACTIVITIES ESPECIALLY THINGS THAT INVOLVE RUNNING/JOGGING, HEAVIER LIFTING/BENDING/TWISTING AT LEAST UNTIL SHE GETS HER CAT SCAN AND RESULTS - TEST PENDING TOMORROW. NO PAIN RIGHT NOW BUT STIFFNESS IN LOW BACK. CURRENTLY STANDING IS THE MOST PROVOKATIVE ACTIVITY FOR LOW BACK PAIN AND GROIN PAIN IS PROVOKED WITH HEAVY LIFTING, RUNNING AND INCREASED STRIDE LENGTH. Objective Objective/Function: PATIENT WAS SEEN TODAY FOR RE-ASSESSMENT OF PROGRESS TOWARD THE SET PT GOALS AND THE NEED FOR FURTHER PHYSICAL THERAPY VS READINESS FOR DISCHARGE. THIS PATIENT IS MAKING GOOD PROGRESS WITH PT AND IS A GOOD CANDIDATE TO CONTINUE BASED ON PROGRESS MADE AND ROOM FOR FURTHER PROGRESS. PATIENT IS AGREEABLE. UPON EXAM TODAY: ROM deficit: CONT JAIME HIP FLEXOR TIGHTNESS Motor deficit: JAIME LE'S GROSSLY 5/5 EXCEPT R HIP IR 4/5. Dural Signs: NEGATIVE JAIME LE'S. Lumbar mvmt loss: flex - MIN ext - MOD R SG - MIN L SG - MIN PATIENT DENIES PAIN WITH LUMBAR ROM TESTING ALL PLANES BUT SHE HAS INCREASED LUMBAR LORDOSIS AND IS IN ANTERIOR PELVIC TILT THAT SHE CAN ONLY PARTIALLY CORRECT. Core strength: GOOD. Palpation: LUMBAR AND DEEP R HIP FLEXOR TENDERNESS BUT MUCH LESS COMPARED TO EVAL. OTHER: GOOD CHALLENGE WITH NEW EX GIVEN TODAY FOR HEP. Plan Plan Plan: CONT PT 2X'S A WK X 7 MORE VISITS INCLUDING AQUATIC THERAPY FOR: 1. GENTLE LIGHT R HIP FLEXOR STRETCHING (TUCK TAILBONE UNDER) - DO NOT CAUSE SHARP OR PINCHING PAIN. 2. R HIP FLEXOR STRENGTHENING. 3. PROGRESSIVE GLUT STRENGTHENING TO REDUCE PSOAS OVERLOAD. 4. CONTINUE TO PROGRESS CORE AND GLUTE STRENGTHENING TO SUPPORT HIP MECHANICS. MODALITIES NEEDED TO DECREASE PAIN AND INFLAMMATION IN R HIP AND LOW BACK. Balance/Gait/Functional tests Balance/Special Test Scores Lower Extremity Functional Score: 65 Goals Goals Goal 1:: DECREASE C/O BACK AND R LE PAIN BY AT LEAST 75% TO EASE WORK AND ADL FUNCTION - GOAL MET. *NEW GOAL - DECREASE C/O BACK AND R LE PAIN BY AT LEAST 90% WITH PLOF. Goal Time Frame: 4-6 Weeks Goal 2:: PATIENT WILL REPORT BEING ABLE TO TOLERATE SITTING FOR WORK AND LEISURE LONG NECESSARY/DESIRED WITH PAIN 0-2/10. Goal Time Frame: 4-6 Weeks Goal Progress: Progressing Goal 3:: PATIENT WILL DEMONSTRATE ABILITY TO LIFT AND CARRY BAGGAGE FOR WORK AND DESIRED AMOUNT FOR LEISURE WITH PROPER BODY MECHANICS AND REPORTING 0-2/10 PAIN. Goal Time Frame: 4-6 Weeks Goal Progress: Progressing Goal 4:: PATIENT WILL REPORT BEING ABLE TO STAND FOR UP TO 1 HOUR WITH 0-2/10 PAIN TO EASE WORK AND ADL FUNCTION Goal Time Frame: 4-6 Weeks Goal Progress: Progressing Goal 5:: INDEP HEP Goal Time Frame: 4-6 Weeks Goal Progress: Progressing Anticipated Interventions Anticipated Interventions Patient/Client Instruction: Educate patient on: Condition, Plan of Care and Risk Factors For the Purpose of:: To improve self management Therapeutic Exercise to Include: Strength training, Body mechanics, Postural training, Flexibilty training, Neuromotor development, In an aquatic setting, Dynamic Lumbar Stabilization and Nitesh Exercises Comment: CONSIDER MCKENZIES FLEXION PRINCIPLE FOR ANTERIOR DERANGEMENT BEING CAREFUL OF H/O 2 HNP'S. For the Purpose of:: To decrease pain, To improve muscle performance and motor function, To improve ability to perform ADL's, To increase tolerance to activity/condition/position, To improve ability of physical actions for home/community/work/leisure, To increase flexibility/ROM, To reduce risk of recurrence and To improve self management TENS: Yes IF ES: Yes Cryotherapy (ice pack, ice massage): Yes Thermo therapy (hot pack): Yes Ultrasound (thermal/non thermal): Yes For the Purpose of:: To decrease pain, To decrease swelling/inflammation and To improve nutrient delivery to tissue Re-Evaluation Ending Re-evaluation ending: Please do not hesitate to contact me at [phone] by phone or if you have questions or concerns regarding this new plan of care! Sincerely, Su Ramos PT, Cert MDT
--- NOTE | 2025-09-19 13:45 | HP.PTDCSUM ---
Discharge Summary D/C summary: It has been my pleasure to treat AMINA POTTS referred by Dr. Avril Ziegler MD, with the diagnosis of R GROIN STRAIN for a total of 20 visit(s). Discharge Date: 09/19/25 Please see the following information for a summary of their discharge status. 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 ALSO WENT ON VACATION TO [place] LIFTING UP TO 40 LBS AND FELT IT A LITTLE BUT NOTHING THAT WOKE HER UP WITH PAIN. STATES SHE WAS ABLE TO DO A LOT OF HIKING INCLUDING IN THE MOUNTAINS (LIKE 3 MILES) WITH NO PAIN. GOT AT LEAST 10,000 STEPS IN A DAY AND OVER-ALL FELT GREAT. REPORTS THAT BASED ON CAT SCAN RESULTS DR. ZIEGLER DID NOT GIVE HER ANY LIFTING RESTRICTIONS (SMALL UMBILICAL HERNIA). REPORTS HEP HELPS HER BACK TREMENDOUSLY AND SHE GETS INCREASED PAIN WHEN SHE DOES NOT DO IT. HAVING LITTLE TO NO GROIN PAIN NOW. STATES SHE HAS NOT HAD MORE THAN 1/10 BACK, HIP OR GROIN PAIN IN THE LAST 10 DAYS WITH ALL THE ACTIVITY, LIFTING AND TRAVEL SHE HAS DONE. THE ONLY THING SHE HAS NOT REALLY TESTED OUT IS RUNNING. Pain Right Back: Pain Intensity (Out of 10): 0 Right Hip: Pain Intensity (Out of 10): 0 Overall Improvement % Improvement: 95 Objective Objective/Function: PATIENT WAS SEEN TODAY FOR RE-ASSESSMENT OF PROGRESS TOWARD THE SET PT GOALS AND THE NEED FOR FURTHER PHYSICAL THERAPY VS READINESS FOR DISCHARGE. THIS PATIENT HAS MADE GREAT PROGRESS WITH PT AND IS APPROPRIATE FOR AND AGREEABLE TO DISCHARGE AT THIS TIME. UPON EXAM TODAY: ROM deficit: CONT JAIME HIP FLEXOR TIGHTNESS BUT PATIENT HAS HOME STRETCHES FOR THIS. Motor deficit: JAIME LE'S GROSSLY 5/5 WITH MMT'ING. Dural Signs: NEGATIVE JAIME LE'S. Lumbar mvmt loss: flex - NIL ext - MOD R SG - NIL L SG - NIL PATIENT DENIES PAIN WITH LUMBAR ROM TESTING ALL PLANES BUT SHE HAS CONTINUES TO HAVE INCREASED LUMBAR LORDOSIS AND IS IN ANTERIOR PELVIC TILT THAT SHE CAN ONLY PARTIALLY CORRECT. Core strength: GOOD. OTHER: PATIENT IS INDEP WITH BOTH LAND AND WATER EX PROGRAMS TO ADDRESS CORE AND LOWER BODY FUNCTIONAL TIGHTNESS, WEAKNESS AND ASYMMETRIES WHICH ARE SARAH AT THIS POINT. OVER ALL GROSS MOTOER STRENGTH AND ROM ARE WFL. Goals Goal 1:: DECREASE C/O BACK AND R LE PAIN BY AT LEAST 75% TO EASE WORK AND ADL FUNCTION - GOAL MET. *NEW GOAL - DECREASE C/O BACK AND R LE PAIN BY AT LEAST 90% WITH PLOF. Goal Progress: Goal Met Goal 2:: PATIENT WILL REPORT BEING ABLE TO TOLERATE SITTING FOR WORK AND LEISURE LONG NECESSARY/DESIRED WITH PAIN 0-2/10. Goal Progress: Goal Met Goal 3:: PATIENT WILL DEMONSTRATE ABILITY TO LIFT AND CARRY BAGGAGE FOR WORK AND DESIRED AMOUNT FOR LEISURE WITH PROPER BODY MECHANICS AND REPORTING 0-2/10 PAIN. Goal Progress: Goal Met Goal 4:: PATIENT WILL REPORT BEING ABLE TO STAND FOR UP TO 1 HOUR WITH 0-2/10 PAIN TO EASE WORK AND ADL FUNCTION Goal Progress: Goal Met Goal 5:: INDEP HEP Goal Progress: Goal Met Plan Plan: D/C. PATIENT AGREEABLE. D/C Information d/c sentence: If there are questions or concerns regarding this patient's physical therapy, please feel free to call me at [phone]. Thank you for the referral of this patient. Sincerely, Su Ramos, PT, Cert MDT Balance/Gait/Functional tests Balance/Special Test Scores Lower Extremity Functional Score: 74 Improvement % Improvement: 95
== END 2025-09-19 13:50 | disposition home or self-care (01) ==
LOC: PT 11:00
PROVIDERS: PCP Internal Medicine; Visit Provider Internal Medicine
DX: S76.211D Strain of adductor muscle, fascia and tendon of right thigh, subsequent encounter (principal); R10.31 Right lower quadrant pain
CPT/HCPCS: 97014; 97110; 97112; 97113; 97162; 97530; G0283